=== PATIENT | female | born 1940 | race Caucasian/White ===

== ENCOUNTER 2019-07-04 09:14 | Emergency (ER) | payer MEDICARE, OTHER ==
[~2019-07-04] VITALS: Ht 149.9 cm; Wt 73.9 kg
--- NOTE | 2019-07-04 09:45 | ED General ---
General Chief Complaint: Dizziness/Syncope Stated Complaint: DIZZINESS Source of Information: Patient Exam Limitations: No Limitations History of Present Illness Date Seen by Provider: Jul 04, 2019 Time Seen by Provider: 09:30 Initial Comments The patient is a very pleasant 79-year-old female who presents for evaluation of dizziness described as room spinning which started while she was at work this morning. She thinks that when she kept her head still and/or close her eyes but her symptoms were slightly less intense. She reports a similar episode within the last few weeks or months. She mentions that she is supposed to have an echocardiogram soon and that she may have a valve problem. On physical exam she does have a systolic murmur concerning for aortic stenosis. During her episodes today she denies any nausea, diaphoresis, chest pain, shortness of breath, palpitations, back pain, abdominal pain, vision changes, focal weakness or focal numbness, ear pain or tinnitus, headache, or syncope. Her symptoms have improved significantly at this time. She is alert and oriented 4, calm, and appears to be in no distress at this time. Timing/Duration: 1 Hour Severity: Moderate Modifying Factors: improves with Movement (made it worse) Associated Systoms: Denies Symptoms Allergies and Home Medications Allergies Coded Allergies: Penicillins (Verified Allergy, Unknown, 07/04/19) Sulfa (Sulfonamide Antibiotics) (Verified Allergy, Unknown, 07/04/19) cholecalciferol (vitamin D3) (Verified Allergy, Unknown, 07/04/19) Patient Home Medication List Home Medication List Reviewed: Yes Review of Systems Review of Systems Constitutional: dizziness EENTM: no symptoms reported Respiratory: no symptoms reported Cardiovascular: vascular heart diseas (pt unsure) Gastrointestinal: no symptoms reported Genitourinary: no symptoms reported Musculoskeletal: no symptoms reported Skin: no symptoms reported Psychiatric/Neurological: No Symptoms Reported Hematologic/Lymphatic: No Symptoms Reported Immunological/Allergic: no symptoms reported All Other Systems Reviewed Negative Unless Noted: Yes Past Nagtdih-Yprtgv-Wlifxo Hx Past Med/Social Hx: Reviewed Nursing Past Med/Soc Hx Physical Exam Vital Signs Vital Signs - First Documented 07/04/19 09:25 Temp 98.4 Pulse 80 Resp 18 B/P (MAP) 148/83 (104) Pulse Ox 97 O2 Delivery Room Air Capillary Refill : Height, Weight, BMI Height: '" Weight: lbs. oz. kg; BMI Method: General Appearance: No Apparent Distress, WD/WN HEENT: PERRL/EOMI, TMs Normal, Pharynx Normal Neck: Full Range of Motion, Non Tender, Supple Respiratory: Chest Non Tender, Lungs Clear, Normal Breath Sounds, No Accessory Muscle Use, No Respiratory Distress Cardiovascular: Regular Rate, Rhythm, No Edema, No JVD, Systolic Murmur (grade 2 systolic murmur ) Gastrointestinal: Normal Bowel Sounds, No Organomegaly, No Pulsatile Mass, Non Tender, Soft Extremity: Normal Capillary Refill, Non Tender, No Calf Tenderness Neurologic/Psychiatric: Alert, Oriented x3, No Motor/Sensory Deficits, Normal 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, 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 Norm as Tested Skin: Normal Color, Warm/Dry Progress/Results/Core Measures Suspected Sepsis SIRS Temperature: Pulse: Respiratory Rate: Laboratory Tests 07/04/19 09:38: White Blood Count 4.4 Blood Pressure / Mean: Laboratory Tests 07/04/19 09:38: Creatinine 1.02, Platelet Count 209, Total Bilirubin 0.2 Results/Orders Lab Results Laboratory Tests Test 07/04/19 09:38 Range/Units White Blood Count 4.4 4.3-11.0 10^3/uL Red Blood Count 4.03 L 4.35-5.85 10^6/uL Hemoglobin 11.3 L 11.5-16.0 G/DL Hematocrit 36 35-52 % Mean Corpuscular Volume 89 80-99 FL Mean Corpuscular Hemoglobin 28 25-34 PG Mean Corpuscular Hemoglobin Concent 32 32-36 G/DL Red Cell Distribution Width 13.2 10.0-14.5 % Platelet Count 209 130-400 10^3/uL Mean Platelet Volume 10.0 7.4-10.4 FL Neutrophils (%) (Auto) 63 42-75 % Lymphocytes (%) (Auto) 26 12-44 % Monocytes (%) (Auto) 6 0-12 % Eosinophils (%) (Auto) 3 0-10 % Basophils (%) (Auto) 1 0-10 % Neutrophils # (Auto) 2.8 1.8-7.8 X 10^3 Lymphocytes # (Auto) 1.2 1.0-4.0 X 10^3 Monocytes # (Auto) 0.3 0.0-1.0 X 10^3 Eosinophils # (Auto) 0.2 0.0-0.3 10^3/uL Basophils # (Auto) 0.0 0.0-0.1 10^3/uL Urine Color STRAW Urine Clarity CLEAR Urine pH 6.5 5-9 Urine Specific [place] <=1.005 1.016-1.022 Urine Protein NEGATIVE NEGATIVE Urine Glucose (UA) NEGATIVE NEGATIVE Urine Ketones NEGATIVE NEGATIVE Urine Nitrite NEGATIVE NEGATIVE Urine Bilirubin NEGATIVE NEGATIVE Urine Urobilinogen 0.2 NORMAL MG/DL Urine Leukocyte Esterase 1+ H NEGATIVE Urine RBC (Auto) NEGATIVE NEGATIVE Urine RBC NONE /HPF Urine WBC 2-5 /HPF Urine Squamous Epithelial Cells 5-10 /HPF Urine Crystals NONE /LPF Urine Bacteria FEW H /HPF Urine Casts NONE /LPF Urine Mucus NEGATIVE /LPF Urine Culture Indicated YES Sodium Level 146 H 135-145 MMOL/L Potassium Level 3.6 3.6-5.0 MMOL/L Chloride Level 105 98-107 MMOL/L Carbon Dioxide Level 28 21-32 MMOL/L Anion Gap 13 5-14 MMOL/L Blood Urea Nitrogen 11 7-18 MG/DL Creatinine 1.02 0.60-1.30 MG/DL Estimat Glomerular Filtration Rate 52 BUN/Creatinine Ratio 11 Glucose Level 127 H 70-105 MG/DL Calcium Level 9.0 8.5-10.1 MG/DL Corrected Calcium 8.9 8.5-10.1 MG/DL Magnesium Level 2.3 1.6-2.4 MG/DL Total Bilirubin 0.2 0.1-1.0 MG/DL Aspartate Amino Transf (AST/SGOT) 16 5-34 U/L Alanine Aminotransferase (ALT/SGPT) 11 0-55 U/L Alkaline Phosphatase 130 40-136 U/L Troponin I < 0.30 <0.30 NG/ML Pro-B-Type Natriuretic Peptide 259.8 H <75.0 PG/ML Total Protein 6.6 6.4-8.2 GM/DL Albumin 4.1 3.2-4.5 GM/DL My Orders Orders - SUSIE DAWSON DO Cbc With Automated Diff (07/04/19:22) Magnesium (07/04/19:) Chest 1 View Ap/Pa Only (07/04/19:) Ekg Tracing (07/04/19:22) Comprehensive Metabolic Panel (07/04/19:22) O2 (8/15/19 09:22) Monitor-Rhythm Ecg Trace Only (07/04/19 09:22) Ed Iv/Invasive Line Start (07/04/19 09:22) Troponin I (07/04/19 09:22) Probnp Fs (07/04/19 09:22) Ua Culture If Indicated (07/04/19 09:22) Meclizine Tablet (Antivert Tablet) (07/04/19 10:00) Ns Iv 1000 Ml (Sodium Chloride 0.9%) (07/04/19 10:00) Ondansetron Injection (Zofran Injectio (07/04/19 10:00) Urine Culture (07/04/19 09:38) Medications Given in ED Current Medications Medications Dose Ordered Sig/Camilo Route Start Time Stop Time Status Last Admin Dose Admin Meclizine HCl 25 mg ONCE ONCE PO 07/04/19 10:00 07/04/19 10:01 DC 07/04/19 09:58 25 MG Ondansetron HCl 4 mg ONCE ONCE IVP 07/04/19 10:00 07/04/19 10:01 DC 07/04/19 09:58 4 MG Vital Signs/I&O 07/04/19 09:25 Temp 98.4 Pulse 80 Resp 18 B/P (MAP) 148/83 (104) Pulse Ox 97 O2 Delivery Room Air Capillary Refill : Progress Note : Progress Note @1130 - Patient and family updated on labs and imaging results. The patient reports that she feels completely back to normal and is no longer having a sensation of room spinning. She likely has benign positional vertigo. Her symptoms at this time are not concerning for stroke. Advised the patient to follow-up with her PCP in the next 1-2 days and return to the emergency Department immediately for new or worsening symptoms. She expresses verbal understanding and is stable for discharge at this time. ECG EKG : Comment Normal sinus rhythm, rate of 73, normal axis, no acute ischemic findings noted, no STEMI, reviewed and interpreted by myself Diagnostic Imaging Diagonstic Imaging: Xray Comments [facility] [place], [place] NAME: ALEXMARITZA E [facility] REC#: [id number] PT STATUS: REG ER : 1940 PHYSICIAN: SUSIE DAWSON DO ADMIT DATE: 07/04/19/ER FS Draft Date of Exam:07/04/19 CHEST 1 VIEW AP/PA ONLY Indication: Dizziness. Frontal chest obtained at 9:25 hours a.m. Heart is borderline in size. Mediastinal silhouette is unremarkable. The lungs are clear. There is no pneumothorax or pleural fluid. There are old granulomatous changes in the right hilum. Impression: Borderline heart size with no acute process in the chest. Dictated on workstation # [id number] Dict: 07/04/19 0955 Trans: 07/04/19 1005 CV [id number] Interpreted by: JO RUDD MD Electronically signed by: Departure Impression Primary Impression: Vertigo Disposition: 01 HOME, SELF-CARE Condition: Stable Departure-Patient Inst. Decision time for Depature: 11:30 Referrals: SAMANTHA RUTLEDGE MD (PCP/Family) Primary Care Physician Patient Instructions: Vertigo (a Type of Dizziness) (DC) Add. Discharge Instructions: Follow-up with your primary care physician in the next 1-2 days. Take the prescr ibed medicine as instructed. Return to the ER immediately for new or worsening symptoms. Scripts Meclizine HCl (Meclizine HCl) 25 Mg Tab.chew 25 MG PO Q6H PRN for DIZZINESS, #20 TAB Prov: SUSIE DAWSON DO 07/04/19 SUSIE DAWSON DO Jul 04, 2019 09:45
[2019-07-04] MEDS ORDERED: FLUT16SP22 (09:49)
[2019-07-04] MEDS ORDERED: MONT10TA24 (09:49)
[2019-07-04] MEDS ORDERED: FLT22013 (09:49)
[2019-07-04] MEDS ORDERED: THP300TCR (09:49)
[2019-07-04] MEDS ORDERED: DIPH1TAB25 (09:49)
[2019-07-04] MEDS ORDERED: LISI-552 (09:49)
[2019-07-04] MEDS ORDERED: LATA2.5D5 (09:49)
[2019-07-04] MEDS ORDERED: SLM50DS (09:49)
[2019-07-04] MEDS ORDERED: MECLIZINE 25 MG (ANTIVERT) TAB PO ONE (10:00)
[2019-07-04] MEDS ORDERED: NS IV 1000 ML 500 ML IV SCH (10:00)
[2019-07-04] MEDS ORDERED: ONDANSETRON 4 MG/2 ML (SDV) Z0FRAN IVP ONE (10:00)
[2019-07-04 10:04] LABS: BACTERIA,URINE FEW /HPF; BILIRUBIN,URINE NEGATIVE (NEGATIVE); CLARITY,URINE CLEAR; COLOR,URINE STRAW; GLUCOSE, URINE (UA) NEGATIVE (NEGATIVE); KETONES,URINE NEGATIVE (NEGATIVE); LEUKOCYTE ESTERASE ,URINE 1+ (NEGATIVE); NITRITE,URINE NEGATIVE (NEGATIVE); PH,URINE 6.5 (5-9); PROTEIN,URINE NEGATIVE (NEGATIVE); UROBILINOGEN,URINE 0.2 MG/DL (NORMAL)
[2019-07-04 10:05] LABS: HEMATOCRIT 36 % (35-52); HEMOGLOBIN 11.3 G/DL (11.5-16.0); MEAN CORPUSCULAR HEMOGLOBIN 28 PG (25-34); MEAN CORPUSCULAR HGB CONC 32 G/DL (32-36); MEAN CORPUSCULAR VOLUME 89 FL (80-99); WHITE BLOOD COUNT 4.4 10^3/uL (4.3-11.0)
[2019-07-04 10:06] LABS: BASOPHILS % (AUTO) 1 % (0-10); EOSINOPHILS # (AUTO) 0.2 10^3/uL (0.0-0.3); EOSINOPHILS % (AUTO) 3 % (0-10); LYMPHOCYTES # (AUTO) 1.2 X 10^3 (1.0-4.0); LYMPHOCYTES % (AUTO) 26 % (12-44); MONOCYTES # (AUTO) 0.3 X 10^3 (0.0-1.0); MONOCYTES % (AUTO) 6 % (0-12); NEUTROPHILS # (AUTO) 2.8 X 10^3 (1.8-7.8); NEUTROPHILS % (AUTO) 63 % (42-75); PLATELET COUNT 209 10^3/uL (130-400); RED CELL DISTRIBUTION WIDTH 13.2 % (10.0-14.5)
--- NOTE | 2019-07-04 10:06 | Diagnostic Imaging Report ---
Indication: Dizziness. Frontal chest obtained at 9:25 hours a.m. Heart is borderline in size. Mediastinal silhouette is unremarkable. The lungs are clear. There is no pneumothorax or pleural fluid. There are old granulomatous changes in the right hilum. Impression: Borderline heart size with no acute process in the chest. Dictated by: Dictated on workstation # [id number]
[2019-07-04 10:11] LABS: ALBUMIN 4.1 GM/DL (3.2-4.5); BILIRUBIN,TOTAL 0.2 MG/DL (0.1-1.0); CREATININE SERUM 1.02 MG/DL (0.60-1.30); MAGNESIUM 2.3 MG/DL (1.6-2.4); POTASSIUM 3.6 MMOL/L (3.6-5.0); TOTAL PROTEIN 6.6 GM/DL (6.4-8.2)
[2019-07-04] MEDS ORDERED: MECL-124 PO (11:34)
[2019-07-04] MEDS ORDERED: NITR-65 PO (11:43)
[2019-07-04 11:55] VITALS: BP 155/58
== END 2019-07-04 11:50 | disposition home or self-care (01) ==
LOC: ER FS 09:16
DX: R42 Dizziness and giddiness (principal); Z88.0 Allergy status to penicillin; Z88.2 Allergy status to sulfonamides; Z88.8 Allergy status to other drugs, medicaments and biological substances
CPT/HCPCS: 36415; 71045; 80053; 81000; 83735; 83880; 84484; 85025; 87088; 93005; 93041

== ENCOUNTER 2019-11-05 09:47 | Emergency (ER) | payer MEDICARE ==
[~2019-11-05] VITALS: Ht 147.3 cm; Wt 72.1 kg
[~2019-11-05 09:47] MED LIST: DIPH1TAB25; FLT22013; FLUT16SP22; LATA2.5D5; LISI-552; MECL-124 PO; MONT10TA24; NITR-65 PO; SLM50DS; THP300TCR
[2019-11-05] MEDS ORDERED: ASPIRIN 81 MG CHEW (CHILDREN'S ASA) PO ONE (10:15)
[2019-11-05 10:18] LABS: BASOPHILS % (AUTO) 0 % (0-10); EOSINOPHILS # (AUTO) 0.2 10^3/uL (0.0-0.3); EOSINOPHILS % (AUTO) 5 % (0-10); HEMATOCRIT 38 % (35-52); HEMOGLOBIN 12.2 G/DL (11.5-16.0); LYMPHOCYTES # (AUTO) 1.6 X 10^3 (1.0-4.0); LYMPHOCYTES % (AUTO) 35 % (12-44); MEAN CORPUSCULAR HEMOGLOBIN 28 PG (25-34); MEAN CORPUSCULAR HGB CONC 32 G/DL (32-36); MEAN CORPUSCULAR VOLUME 88 FL (80-99); MEAN PLATELET VOLUME 9.4 FL (7.4-10.4); MONOCYTES # (AUTO) 0.3 X 10^3 (0.0-1.0); MONOCYTES % (AUTO) 6 % (0-12); NEUTROPHILS # (AUTO) 2.5 X 10^3 (1.8-7.8); NEUTROPHILS % (AUTO) 54 % (42-75); PLATELET COUNT 226 10^3/uL (130-400); RED CELL DISTRIBUTION WIDTH 13.8 % (10.0-14.5); WHITE BLOOD COUNT 4.6 10^3/uL (4.3-11.0)
--- NOTE | 2019-11-05 10:18 | ED Chest Pain ---
General Chief Complaint: Chest Pain Stated Complaint: CHEST PAIN Source: patient Exam Limitations: no limitations History of Present Illness Date Seen by Provider: Nov 05, 2019 Time Seen by Provider: 10:00 Initial Comments Patient presents with onset of chest pain when she sat up this morning. Pain lasted a couple minutes and resolved. States that it came and went a few times with minimal activity. Denies previous occurrence of similar pain, denies history of cardiac workup or heart problems. Denies any recent illness: Cough, runny nose or congestion, fever or chills. On arrival to the ED no longer having any chest pain and feels fine. Allergies and Home Medications Allergies Coded Allergies: Penicillins (Verified Allergy, Unknown, 07/04/19) Sulfa (Sulfonamide Antibiotics) (Verified Allergy, Unknown, 07/04/19) cholecalciferol (vitamin D3) (Verified Allergy, Unknown, 07/04/19) Home Medications Ibuprofen 600 Mg Tablet, 600 MG PO Q6H PRN for PAIN-MILD Prescribed by: TUCKER CLAROS on 11/05/19 1302 Meclizine HCl 25 Mg Tab.chew, 25 MG PO Q6H PRN for DIZZINESS Prescribed by: SUSIE DAWSON on 07/04/19 1134 Nitrofurantoin Monohyd/M-Cryst 100 Mg Capsule, 1 TAB PO BID Prescribed by: SUSIE DAWSON on 07/04/19 1143 Patient Home Medication List Home Medication List Reviewed: Yes Review of Systems Review of Systems Constitutional: see HPI; No chills, No diaphoresis, No dizziness, No fever, No malaise, No weakness Respiratory: Denies Cough, Denies Orthopnea, Denies Shortness of Air, Denies SOA With Exertion, Denies SOA at Rest, Denies Stridor, Denies Wheezing Cardiovascular: See HPI, Chest Pain; Denies Edema, Denies Irregular Heart Rate, Denies Lightheadedness, Denies Palpitations, Denies Syncope Gastrointestinal: No Symptoms Reported, See HPI; Denies Abdominal Pain, Denies Diarrhea, Denies Nausea, Denies Poor Appetite Musculoskeletal: No back pain, No joint pain Skin: see HPI Past Oahbxgx-Qljiud-Ozmuee Hx Past Med/Social Hx: Reviewed Nursing Past Med/Soc Hx Patient Social History Alcohol Use: Denies Use 2nd Hand Smoke Exposure: No Recent Foreign Travel: No Recent Hopitalizations: No Seasonal Allergies Seasonal Allergies: No Past Medical History Surgeries: Yes Section, Gallbladder Respiratory: Yes Asthma Cardiac: Yes Heart Murmur Neurological: No Genitourinary: No Gastrointestinal: No Musculoskeletal: No Endocrine: No HEENT: No Cancer: No Psychosocial: No Integumentary: No Blood Disorders: No Physical Exam Vital Signs Vital Signs - First Documented Capillary Refill : Height, Weight, BMI Height: 4'11.00" Weight: 163lbs. oz. 73.669209wt; BMI Method:Stated General Appearance: No Apparent Distress, WD/WN Neck: Full Range of Motion, Normal Inspection, Non Tender Respiratory: Chest Non Tender, Lungs Clear, Normal Breath Sounds, No Accessory Muscle Use, No Respiratory Distress Cardiovascular: Regular Rate, Rhythm, No Edema, No Gallop, No JVD, No Murmur, Normal Peripheral Pulses Gastrointestinal: Normal Bowel Sounds, No Organomegaly, No Pulsatile Mass, Non Tender Extremity: Normal Capillary Refill, Normal Inspection, Normal Range of Motion, Non Tender, No Calf Tenderness, No Pedal Edema Neurologic/Psychiatric: Alert, Oriented x3, No Motor/Sensory Deficits, Normal Mood/Affect Progress/Results/Core Measures Results/Orders Lab Results Laboratory Tests Test 11/05/19 09:56 11/05/19 12:30 Range/Units White Blood Count 4.6 4.3-11.0 10^3/uL Red Blood Count 4.32 L 4.35-5.85 10^6/uL Hemoglobin 12.2 11.5-16.0 G/DL Hematocrit 38 35-52 % Mean Corpuscular Volume 88 80-99 FL Mean Corpuscular Hemoglobin 28 25-34 PG Mean Corpuscular Hemoglobin Concent 32 32-36 G/DL Red Cell Distribution Width 13.8 10.0-14.5 % Platelet Count 226 130-400 10^3/uL Mean Platelet Volume 9.4 7.4-10.4 FL Neutrophils (%) (Auto) 54 42-75 % Lymphocytes (%) (Auto) 35 12-44 % Monocytes (%) (Auto) 6 0-12 % Eosinophils (%) (Auto) 5 0-10 % Basophils (%) (Auto) 0 0-10 % Neutrophils # (Auto) 2.5 1.8-7.8 X 10^3 Lymphocytes # (Auto) 1.6 1.0-4.0 X 10^3 Monocytes # (Auto) 0.3 0.0-1.0 X 10^3 Eosinophils # (Auto) 0.2 0.0-0.3 10^3/uL Basophils # (Auto) 0.0 0.0-0.1 10^3/uL Sodium Level 144 135-145 MMOL/L Potassium Level 4.2 3.6-5.0 MMOL/L Chloride Level 106 98-107 MMOL/L Carbon Dioxide Level 25 21-32 MMOL/L Anion Gap 13 5-14 MMOL/L Blood Urea Nitrogen 13 7-18 MG/DL Creatinine 1.02 0.60-1.30 MG/DL Estimat Glomerular Filtration Rate 52 BUN/Creatinine Ratio 13 Glucose Level 102 70-105 MG/DL Calcium Level 9.5 8.5-10.1 MG/DL Corrected Calcium 9.2 8.5-10.1 MG/DL Total Bilirubin 0.3 0.1-1.0 MG/DL Aspartate Amino Transf (AST/SGOT) 17 5-34 U/L Alanine Aminotransferase (ALT/SGPT) 10 0-55 U/L Alkaline Phosphatase 127 40-136 U/L Troponin I < 0.30 < 0.30 <0.30 NG/ML Pro-B-Type Natriuretic Peptide 453.6 H <75.0 PG/ML Total Protein 6.8 6.4-8.2 GM/DL Albumin 4.4 3.2-4.5 GM/DL My Orders Orders - ROVENSTTUCKER CATES DO Ed Iv/Invasive Line Start (11/05/19 10:07) Chest 1 View Ap/Pa Only (11/05/19 10:07) Ekg Tracing (11/05/19 10:07) Cbc With Automated Diff (11/05/19 10:07) Comprehensive Metabolic Panel (11/05/19 10:07) Troponin I Fs (11/05/19 10:07) Probnp Fs (11/05/19 10:07) Aspirin Chewable Tablet (Baby Aspirin Ch (11/05/19 10:15) Troponin I Fs (11/05/19 12:00) Ibuprofen Tablet (Motrin Tablet) (11/05/19 12:30) Medications Given in ED Current Medications Medications Dose Ordered Sig/Camilo Route Start Time Stop Time Status Last Admin Dose Admin Ibuprofen 600 mg ONCE ONCE PO 11/05/19 12:30 11/05/19 12:31 DC 11/05/19 12:28 600 MG Vital Signs/I&O 11/05/19 11/05/19 09:50 09:50 Temp 36.5 Pulse 64 Resp 14 B/P (MAP) 162/53 (89) Pulse Ox 100 O2 Delivery Room Air Room Air Progress Progress Note : Progress Note Uneventful ER stay, presenting with no chest pain on arrival. At frequent re- evaluations, patient stated she had had some sharp chest pain that lasted only a few seconds and resolved. Reexamination of her chest with some scattered tenderness at the costochondral junction both right and left side. Repeat 2 hour troponin negative and patient reassurance given. Discussed outpatient treatment with short term NSAID and near follow-up with her PCP as long as no significant changes. Also advised ER follow-up if pain progresses, changes in severity or becomes persistent. Initial ECG Impression Date: Nov 05, 2019 Initial ECG Impression Time: 10:00 Initial ECG Rhythm: Normal Sinus Initial ECG Intervals: Normal Initial ECG Impression: Normal Initial ECG Comparisson: No Previous ECG Available Departure Impression Primary Impression: Chest pain Qualified Codes: R07.9 - Chest pain, unspecified Disposition: 01 HOME, SELF-CARE Condition: Stable Departure-Patient Inst. Referrals: SAMANTHA RUTLEDGE MD (PCP/Family) Primary Care Physician Patient Instructions: Chest Pain (DC) Add. Discharge Instructions: Call your Primary Care Doctor today to arrange for a follow-up evaluation regarding your Chest pain. All discharge instructions reviewed with patient and/or family. Voiced understanding. Scripts Ibuprofen (Ibuprofen) 600 Mg Tablet 600 MG PO Q6H PRN for PAIN-MILD, #20 TAB Prov: TUCKER CLAROS DO 11/05/19 TUCKER CLAROS DO Nov 05, 2019 10:18 POS
[2019-11-05 10:40] LABS: ALANINE AMINOTRANSFERASE 10 U/L (0-55); ALBUMIN 4.4 GM/DL (3.2-4.5); ALKALINE PHOSPHATASE 127 U/L (40-136); BILIRUBIN,TOTAL 0.3 MG/DL (0.1-1.0); BUN/CREATININE RATIO 13; CALCIUM 9.5 MG/DL (8.5-10.1); CARBON DIOXIDE 25 MMOL/L (21-32); CHLORIDE 106 MMOL/L (98-107); CREATININE SERUM 1.02 MG/DL (0.60-1.30); GFR ESTIMATED 52; GLUCOSE 102 MG/DL (70-105); POTASSIUM 4.2 MMOL/L (3.6-5.0); SODIUM 144 MMOL/L (135-145); TOTAL PROTEIN 6.8 GM/DL (6.4-8.2)
--- NOTE | 2019-11-05 11:04 | Diagnostic Imaging Report ---
CLINICAL INDICATION: Patient with chest pain. EXAM: Portable chest x-ray, upright view. COMPARISON: Chest x-ray dated 07/04/2019. FINDINGS: Lungs/pleura: The lungs are clear and stable. There is no pneumothorax. There is no pleural effusion. Mediastinum: Unremarkable. Pulmonary vasculature: Unremarkable. Heart: The heart size is now within normal limits. Bones/extrathoracic soft tissue: There are degenerative spurs involving the thoracic spine. IMPRESSION: There is no radiographic evidence of an acute cardiopulmonary process. Dictated by: Dictated on workstation # [id number]
[2019-11-05] MEDS ORDERED: IBUPROFEN 600 MG (MOTRIN) TAB PO ONE (12:30)
[2019-11-05] MEDS ORDERED: IBUP-1773 PO (13:02)
[2019-11-05 13:11] VITALS: BP 166/56
== END 2019-11-05 13:18 | disposition home or self-care (01) ==
LOC: EDUNIT# 09:47 → ER FS 09:48
DX: R07.9 Chest pain, unspecified (principal); J45.909 Unspecified asthma, uncomplicated; Z88.0 Allergy status to penicillin; Z88.2 Allergy status to sulfonamides; Z88.8 Allergy status to other drugs, medicaments and biological substances
CPT/HCPCS: 36415; 71045; 80053; 83880; 84484; 85025; 93005

== ENCOUNTER 2020-02-03 16:54 | Emergency (ER) | payer MEDICARE ==
[~2020-02-03] VITALS: Ht 149 cm; Wt 71.9 kg
[~2020-02-03 16:54] MED LIST changes: +IBUP-1773 PO; -MONT10TA24; +MONT10TA26
--- NOTE | 2020-02-03 17:37 | ED General ---
General Stated Complaint: DIZZINESS,EAR PRESSURE History of Present Illness Date Seen by Provider: Feb 03, 2020 Time Seen by Provider: 17:34 Initial Comments This patient is an 79-year-old female that presents to the emergency department complaining of intermittent dizziness today. Patient states she has a long history of dizziness is been treated for the same by her PCP. Patient describes vertigo. Patient states that she has to do exercises frequently to help with her dizziness. Denies taking any medications. Patient states she had a little dizzy earlier and percussion, fall. Patient does not appear to be acutely sick and states the dizziness is much improved at this time. We'll do a medical evaluation treatment is needed. Timing/Duration: 12 Hours Severity: Mild Modifying Factors: worse with Cold Therapy, worse with Eating, worse with Immobilization, worse with Medication, worse with Movement, worse with Rest, worse with Other Associated Systoms: Denies Symptoms; No Chest Pain, No Cough, No Diaphoresis, No Fever/Chills, No Headaches, No Loss of Appetite, No Malaise, No Nausea/Vomiting, No Rash, No Seizure, No Shortness of Air, No Syncope, No Weakness, No Other Allergies and Home Medications Allergies Coded Allergies: Penicillins (Verified Allergy, Unknown, 07/04/19) Sulfa (Sulfonamide Antibiotics) (Verified Allergy, Unknown, 07/04/19) cholecalciferol (vitamin D3) (Verified Allergy, Unknown, 07/04/19) Home Medications Ibuprofen 600 Mg Tablet, 600 MG PO Q6H PRN for PAIN-MILD Prescribed by: TUCKER CLAROS on 11/05/19 1302 Meclizine HCl 25 Mg Tab.chew, 25 MG PO Q6H PRN for DIZZINESS Prescribed by: SUSIE DAWSON on 07/04/19 1134 Nitrofurantoin Monohyd/M-Cryst 100 Mg Capsule, 1 TAB PO BID Prescribed by: SUSIE DAWSON on 07/04/19 1143 Patient Home Medication List Home Medication List Reviewed: Yes Review of Systems Review of Systems Constitutional: no symptoms reported; No see HPI, No chills, No diaphoresis, No dizziness, No fever, No malaise, No weakness, No weight gain, No weight loss, No other EENTM: no symptoms reported; No see HPI, No ear discharge, No hearing loss, No ear pain, No blurred vision, No double vision, No eye pain, No tearing, No vision loss, No dental problems, No hoarseness, No mouth pain, No mouth swelling, No epistaxis, No nose congestion, No nose pain, No throat pain, No th roat swelling, No other Respiratory: no symptoms reported; No see HPI, No cough, No dyspnea on exertion, No hemoptysis, No orthopnea, No phlegm, No short of breath, No stridor, No wheezing, No other Cardiovascular: no symptoms reported; No see HPI, No chest pain, No edema, No Hx of Intervention, No palpitations, No syncope, No vascular heart diseas, No other Gastrointestinal: No RUQ, No LUQ, No RLQ, No LLQ; no symptoms reported; No see HPI, No abdominal pain, No constipation, No diarrhea, No dysphagia, No hematemesis, No heartburn, No jaundice, No loss of appetite, No melena, No nausea, No vomiting, No other Genitourinary: No no symptoms reported, No see HPI, No decreased output, No discharge, No dysuria, No frequency, No hematuria, No hesitancy, No incontinence, No nocturia, No pain, No other Musculoskeletal: no symptoms reported; No see HPI, No back pain, No gout, No joint pain, No joint swelling, No muscle pain, No muscle stiffness, No muscle cramps, No muscle twitching, No muscle weakness, No neck pain, No other Skin: no symptoms reported; No see HPI, No change in color, No change in hair/nails, No dryness, No hx of skin cancer, No lesions, No lumps, No pruritus, No rash, No other Psychiatric/Neurological: Denies No Symptoms Reported, Denies See HPI, Denies Anxiety, Denies Depressed, Denies Emotional Problems, Denies Headache, Denies Numbness, Denies Paresthesia, Denies Pre-Existing Deficit, Denies Seizure, Denies Tingling, Denies Tremors, Denies Weakness, Denies Other Past Rvfagzx-Gugobm-Ndtgqw Hx Patient Social History 2nd Hand Smoke Exposure: No Recent Foreign Travel: No Contact w/Someone Who Travel: No Recent Hopitalizations: No Seasonal Allergies Seasonal Allergies: No Past Medical History Surgeries: Yes Section, Gallbladder Respiratory: Yes Asthma Cardiac: Yes Heart Murmur Neurological: No Genitourinary: No Gastrointestinal: No Musculoskeletal: No Endocrine: No HEENT: No Cancer: No Psychosocial: No Integumentary: No Blood Disorders: No Physical Exam Vital Signs Vital Signs - First Documented 02/03/20 17:15 Temp 36.4 Pulse 75 Resp 17 B/P (MAP) 169/61 (97) Pulse Ox 97 Capillary Refill : Height, Weight, BMI Height: 4'11.00" Weight: 163lbs. oz. 73.788646at; 33.00 BMI Method:Stated General Appearance: No Apparent Distress, WD/WN HEENT: PERRL/EOMI, TMs Normal, Normal ENT Inspection, Pharynx Normal Neck: Full Range of Motion, Normal Inspection, Non Tender, Supple Respiratory: Chest Non Tender, Lungs Clear, Normal Breath Sounds, No Accessory Muscle Use, No Respiratory Distress Cardiovascular: Regular Rate, Rhythm, No Edema, No Gallop, No JVD, No Murmur, Normal Peripheral Pulses Gastrointestinal: Normal Bowel Sounds, No Organomegaly, No Pulsatile Mass, Non Tender, Soft Back: Normal Inspection, No CVA Tenderness, No Vertebral Tenderness Extremity: Normal Capillary Refill, Normal Inspection, Normal Range of Motion, Non Tender, No Calf Tenderness, No Pedal Edema Neurologic/Psychiatric: Alert, Oriented x3, No Motor/Sensory Deficits, Normal Mood/Affect Skin: Normal Color, Warm/Dry Progress/Results/Core Measures Suspected Sepsis SIRS Temperature: Pulse: Respiratory Rate: Laboratory Tests 02/03/20 17:50: White Blood Count 5.2 Blood Pressure / Mean: Laboratory Tests 02/03/20 17:50: Creatinine 1.04, INR Comment 1.0, Platelet Count 231, Total Bilirubin 0.2 Results/Orders Lab Results Laboratory Tests Test 02/03/20 17:50 Range/Units White Blood Count 5.2 4.3-11.0 10^3/uL Red Blood Count 4.19 L 4.35-5.85 10^6/uL Hemoglobin 11.9 11.5-16.0 G/DL Hematocrit 37 35-52 % Mean Corpuscular Volume 89 80-99 FL Mean Corpuscular Hemoglobin 28 25-34 PG Mean Corpuscular Hemoglobin Concent 32 32-36 G/DL Red Cell Distribution Width 13.6 10.0-14.5 % Platelet Count 231 130-400 10^3/uL Mean Platelet Volume 9.6 7.4-10.4 FL Neutrophils (%) (Auto) 53 42-75 % Lymphocytes (%) (Auto) 33 12-44 % Monocytes (%) (Auto) 9 0-12 % Eosinophils (%) (Auto) 4 0-10 % Basophils (%) (Auto) 1 0-10 % Neutrophils # (Auto) 2.8 1.8-7.8 X 10^3 Lymphocytes # (Auto) 1.7 1.0-4.0 X 10^3 Monocytes # (Auto) 0.5 0.0-1.0 X 10^3 Eosinophils # (Auto) 0.2 0.0-0.3 10^3/uL Basophils # (Auto) 0.0 0.0-0.1 10^3/uL Prothrombin Time 13.1 12.2-14.7 SEC INR Comment 1.0 0.8-1.4 Activated Partial Thromboplast Time 25 24-35 SEC Sodium Level 143 135-145 MMOL/L Potassium Level 4.3 3.6-5.0 MMOL/L Chloride Level 104 98-107 MMOL/L Carbon Dioxide Level 26 21-32 MMOL/L Anion Gap 13 5-14 MMOL/L Blood Urea Nitrogen 16 7-18 MG/DL Creatinine 1.04 0.60-1.30 MG/DL Estimat Glomerular Filtration Rate 51 BUN/Creatinine Ratio 15 Glucose Level 84 70-105 MG/DL Calcium Level 9.3 8.5-10.1 MG/DL Corrected Calcium 9.1 8.5-10.1 MG/DL Magnesium Level 2.3 1.6-2.4 MG/DL Total Bilirubin 0.2 0.1-1.0 MG/DL Aspartate Amino Transf (AST/SGOT) 17 5-34 U/L Alanine Aminotransferase (ALT/SGPT) 10 0-55 U/L Alkaline Phosphatase 130 40-136 U/L Myoglobin 30.9 10.0-92.0 NG/ML Troponin I < 0.30 <0.30 NG/ML Pro-B-Type Natriuretic Peptide 536.0 H <75.0 PG/ML Total Protein 6.9 6.4-8.2 GM/DL Albumin 4.2 3.2-4.5 GM/DL My Orders Orders - ANDREY EMERY MD Ekg Tracing (02/03/20 17:27) Chest 1 View Ap/Pa Only (02/03/20 17:27) Cbc With Automated Diff (02/03/20:28) Magnesium (02/03/20:28) Ekg Tracing (02/03/20:) Comprehensive Metabolic Panel (02/03/20:) Myoglobin Serum (02/03/20:28) Protime With Inr (02/03/20:) Partial Thromboplastin Time (02/03/20:) O2 (02/03/20:28) Monitor-Rhythm Ecg Trace Only (02/03/20:) Ed Iv/Invasive Line Start (02/03/20:) Troponin I Fs (02/03/20:) Probnp Fs (02/03/20:) Orthostatic Vital Signs (Adult (02/03/20:28) Ct Head Wo (02/03/20 17:28) Vital Signs/I&O 02/03/20 02/03/20 17:15 18:00 Temp 36.4 Pulse 75 68 71 72 Resp 17 B/P (MAP) 169/61 (97) 166/56 (92) 169/62 (97) 169/60 (96) Pulse Ox 97 Capillary Refill : Progress Note : Time: 18:45 Progress Note Negative evaluation M 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 Patient given a prescription for meclizine patient's follow-up PCP in 2-3 days. ECG Initial ECG Impression Date: Feb 03, 2020 Initial ECG Impression Time: 17:32 Initial ECG Rate: 62 Initial ECG Rhythm: Normal Sinus Initial ECG Intervals: Normal Initial ECG Impression: Normal Departure Impression Primary Impression: Vertigo Disposition: 01 HOME, SELF-CARE Condition: Stable Departure-Patient Inst. Decision time for Depature: 18:46 Referrals: SAMANTHA RUTLEDGE MD (PCP) Primary Care Physician Patient Instructions: Vertigo (a Type of Dizziness) (DC) Add. Discharge Instructions: Encourage by mouth fluids. Transition from lying to sitting and standing slowly the arch for falls. Follow-up with your PCP in 2-3 days. Scripts Meclizine HCl (Meclizine HCl) 12.5 Mg Tablet 12.5 MG PO BID for 7 Days, #14 TAB 0 Refills Prov: ANDREY EMERY MD 02/03/20 ANDREY EMERY MD Feb 03, 2020 17:37
[2020-02-03 18:00] VITALS: BP_SYST 166; BP_SYST 169; BP_DIAS 56; BP_DIAS 60; BP_DIAS 62
[2020-02-03 18:14] LABS: HEMATOCRIT 37 % (35-52); HEMOGLOBIN 11.9 G/DL (11.5-16.0); MEAN CORPUSCULAR HEMOGLOBIN 28 PG (25-34); MEAN CORPUSCULAR VOLUME 89 FL (80-99); WHITE BLOOD COUNT 5.2 10^3/uL (4.3-11.0)
[2020-02-03 18:15] LABS: BASOPHILS % (AUTO) 1 % (0-10); EOSINOPHILS # (AUTO) 0.2 10^3/uL (0.0-0.3); EOSINOPHILS % (AUTO) 4 % (0-10); LYMPHOCYTES # (AUTO) 1.7 X 10^3 (1.0-4.0); LYMPHOCYTES % (AUTO) 33 % (12-44); MEAN CORPUSCULAR HGB CONC 32 G/DL (32-36); MEAN PLATELET VOLUME 9.6 FL (7.4-10.4); MONOCYTES # (AUTO) 0.5 X 10^3 (0.0-1.0); MONOCYTES % (AUTO) 9 % (0-12); NEUTROPHILS # (AUTO) 2.8 X 10^3 (1.8-7.8); NEUTROPHILS % (AUTO) 53 % (42-75); PLATELET COUNT 231 10^3/uL (130-400); RED CELL DISTRIBUTION WIDTH 13.6 % (10.0-14.5)
[2020-02-03 18:20] LABS: PROTHROMBIN TIME PATIENT 13.1 SEC (12.2-14.7)
--- NOTE | 2020-02-03 18:26 | Diagnostic Imaging Report ---
PROCEDURE: CT head without contrast. TECHNIQUE: Multiple contiguous axial images were obtained through the brain without the use of intravenous contrast. Auto Exposure Controls were utilized during the CT exam to meet ALARA standards for radiation dose reduction. Examination is limited due to motion. INDICATION: Dizziness CT HEAD: CT images of the head were obtained. FINDINGS: Ventricles and sulci are within normal limits for size. There is no intracranial hemorrhage identified. There is no abnormal mass effect or shift of midline structures. There is atherosclerotic calcification within the distal internal carotid arteries. There is mild mural thickening within ethmoid air cells bilaterally as well as the right sphenoid sinus. There is hyperostosis frontalis interna. IMPRESSION: No acute abnormality is identified. Dictated by: Dictated on workstation # [id number]
--- NOTE | 2020-02-03 18:27 | Diagnostic Imaging Report ---
INDICATION: Dizziness. FINDINGS: Single view of the chest shows normal heart size and vascularity. The lungs are clear. There is no effusion or pneumothorax. There is no bony abnormality. IMPRESSION: No acute abnormality is seen with no change from 11/05/2019. Dictated by: Dictated on workstation # [id number]
[2020-02-03 18:38] LABS: BILIRUBIN,TOTAL 0.2 MG/DL (0.1-1.0); CALCIUM 9.3 MG/DL (8.5-10.1); CREATININE SERUM 1.04 MG/DL (0.60-1.30); MAGNESIUM 2.3 MG/DL (1.6-2.4); POTASSIUM 4.3 MMOL/L (3.6-5.0)
[2020-02-03 18:39] LABS: ALBUMIN 4.2 GM/DL (3.2-4.5); TOTAL PROTEIN 6.9 GM/DL (6.4-8.2)
[2020-02-03] MEDS ORDERED: MECL-172 PO (18:47)
[2020-02-03 19:00] VITALS: BP 159/45
--- OUTSIDE RECORDS SUMMARY | 2020-02-04 00:49 | XMS REPORT | Continuity of Care Document ---
Author Organization Unknown Address Unknown Phone Unavailable Allergies Active Description Code Type Severity Reaction Onset Reported/Identified Relationship to Patient Clinical Status Yes cholecalciferol (vitamin D3) [id number] Drug Allergy Unknown N/A 07/04/2019 Yes Penicillins [id number] Drug Aller gy Unknown N/A 07/04/2019 Yes Sulfa (Sulfonamide Antibiotics) [id number] Drug Allergy Unknown N/A 019 Medications There is no data. Problems Date Dx Coded Attending Type Code Diagnosis Diagnosed By 07/04/2019 SAMIR RICHARDS DO Ot R42 DIZZINESS AND GIDDINESS 07/04/2019 SAMIR RICHARDS DO Ot Z88. 0 ALLERGY STATUS TO PENICILLIN 07/04/2019 SAMIR RICHARDS DO Ot Z88. 2 ALLERGY STATUS TO SULFONAMIDES STATUS 07/04/2019 SAMIR RICHARDS DO Ot Z88. 8 ALLERGY STATUS TO OTH DRUG/MEDS/BIOL SUB 07/08/2019 SAMIR RICHARDS DO Ot R42 DIZZINESS AND GIDDINESS 07/08/2019 SAMIR RICHARDS DO Ot Z88. 0 ALLERGY STATUS TO PENICILLIN 07/08/2019 SMAIR RICHARDS DO Ot Z88. 2 ALLERGY STATUS TO SULFONAMIDES STATUS 07/08/2019 SAMIR RICHARDS DO Ot Z88. 8 ALLERGY STATUS TO OTH DRUG/MEDS/BIOL SUB 11/05/2019 ROVENSTINE DESTIN HAMMONDEN L Ot J45.909 UNSPECIFIED ASTHMA, UNCOMPLICATED 11/05/2019 ROVENSTINE DODESTINEN L Ot R07.9 CHEST PAIN, UNSPECIFIED 11/05/2019 ROVENSTINE DESTIN HAMMONDEN L Ot Z88.0 ALLERGY STATUS TO PENICILLIN 11/05/2019 ROVENSTINE DO TUCKER L Ot Z88.2 ALLERGY STATUS TO SULFONAMIDES STATUS 11/05/2019 ROVENSTINE DESTIN HAMMONDEN L Ot Z88.8 ALLERGY STATUS TO OTH DRUG/MEDS/BIOL SUB 11/08/2019 ROVENSTINE DO, TUCKER L Ot J45.909 UNSPECIFIED ASTHMA, UNCOMPLICATED 11/08/2019 ROVENSTINE TUCKER HAMMOND Ot R07.9 CHEST PAIN, UNSPECIFIED 11/08/2019 JEANVENSTINE TUCKER HAMMOND Ot Z88.0 ALLERGY STATUS TO PENICILLIN 11/08/2019 ROVENSTINE TUCKER HAMMOND Ot Z88.2 ALLERGY STATUS TO SULFONAMIDES STATUS 11/08/2019 JEANVENSTINE TUCKER HAMMOND Ot Z88.8 ALLERGY STATUS TO OTH DRUG/MEDS/BIOL SUB Procedures There is no data. Results Test Result Range LIPID PANEL - 01/24/19 11:00 CHOLESTEROL, TOTAL 199 mg/dL <200 HDL CHOLESTEROL 81 mg/dL >50 TRIGLYCERIDES 106 mg/dL <150 LDL-CHOLESTEROL 98 mg/dL (calc) NRG CHOL/HDLC RATIO 2.5 (calc) <5.0 NON HDL CHOLESTEROL 118 mg/dL (calc) <13 0 CMP - 01/24/19 11:00 GLUCOSE 106 mg/dL 65-99 UREA NITROGEN (BUN) 16 mg/dL 7-25 CREATININE 1.17 mg/dL 0.60-0.93 eGFR NON-AFR. SWAZI 44 mL/min/1.73m2 > OR = 60 eGFR 51 mL/min/1.73m2 > OR = 60 BUN/CREATININE RATIO 14 (calc) 6-22 SODIUM 142 mmol/L 135-146 POTASSIUM 5.2 mmol/L 3.5-5.3 CHLORIDE 106 mmol/L 98-110 CARBON DIOXIDE 27 mmol/L 20-32 CALCIUM 9.3 mg/dL 8.6-10.4 PROTEIN, TOTAL 6.7 g/dL 6.1-8.1 ALBUMIN 4.5 g/dL 3.6-5.1 GLOBULIN 2.2 g/dL (calc) 1.9-3.7 ALBUMIN/GLOBULIN RATIO 2.0 (calc) 1.0-2. 5 BILIRUBIN, TOTAL 0.3 mg/dL 0.2-1.2 ALKALINE PHOSPHATASE 121 U/L 33-130 AST 18 U/L 10-35 ALT 13 U/L 6-29 CBC - 01/24/19 11:00 WHITE BLOOD CELL COUNT 4.5 Thousand/uL 3 .8-10.8 RED BLOOD CELL COUNT 4.39 Million/uL 3.8 0-5.10 HEMOGLOBIN 12.7 g/dL 11.7-15.5 HEMATOCRIT 38.3 % 35.0-45.0 MCV 87.2 fL 80.0-100.0 MCH 28.9 pg 27.0-33.0 MCHC 33.2 g/dL 32.0-36.0 RDW 14.0 % 11.0-15.0 PLATELET COUNT 254 Thousand/uL 140-400 MPV 10.2 fL 7.5-12.5 ABSOLUTE NEUTROPHILS 2525 cells/uL 1500- 7800 ABSOLUTE LYMPHOCYTES 1427 cells/uL 850-3 900 ABSOLUTE MONOCYTES 369 cells/uL 200-950 ABSOLUTE EOSINOPHILS 149 cells/uL 15-500 ABSOLUTE BASOPHILS 32 cells/uL 0-200 NEUTROPHILS 56.1 % NRG LYMPHOCYTES 31.7 % NRG MONOCYTES 8.2 % NRG EOSINOPHILS 3.3 % NRG BASOPHILS 0.7 % NRG Complete urinalysis with reflex to cultu re - 07/04/19 09:38 Urine color determination STRAW NRG Urine clarity determination CLEAR NR G Urine pH measurement by test strip 6.5 5-9 Specific gravity of urine by test strip <= 1.016-1.022 Urine protein assay by test strip, semi-quantitative NEGATIVE NEGATIVE Urine glucose detection by automated test strip NE GATIVE NEGATIVE Erythrocytes detection in urine sediment by light micr oscopy NEGATIVE NEGATIVE Urine ketones detection by automated test strip NE GATIVE NEGATIVE Urine nitrite detection by test strip NEGATIVE NEGATIVE Urine total bilirubin detection by test strip NEGA TIVE NEGATIVE Urine urobilinogen measurement by automated test strip (mass/volume) 0.2 mg/dL NORMAL Urine leukocyte esterase detection by dipstick 1+ NEGATIVE Automated urine sediment erythrocyte cou nt by microscopy (number/high power field) NONE NRG Automated urine sediment leukocyte count by microscopy (number/high power field) [HPF] NRG Bacteria detection in urine sediment by light microsco py FEW NRG Squamous epithelial cells detection in u rine sediment by light microscopy 5-10 NRG Crystals detection in urine sediment by light microsco py NONE NRG Casts detection in urine sediment by light microscopy NONE NRG Mucus detection in urine sediment by light microscopy NEGATIVE NRG Complete urinalysis with reflex to culture YES NRG Complete blood count (CBC) with automate d white blood cell (WBC) differential - 07/04/19 09:38 Blood leukocytes automated count (number/volume) 4.4 10*3/uL 4.3-11.0 Blood erythrocytes automated count (number/volume) 4.03 10*6/uL 4.35-5.85 Venous blood hemoglobin measurement (mass/volume) 11.3 g/dL 11.5-16.0 Blood hematocrit (volume fraction) 36 % 35-52 Automated erythrocyte mean corpuscular volume 89 [ foz_us] 80-99 Automated erythrocyte mean corpuscular h emoglobin (mass per erythrocyte) 28 pg 25-34 Automated erythrocyte mean corpuscular h emoglobin concentration measurement (mass/volume) 32 g/dL 32-36 Automated erythrocyte distribution width ratio 13. 2 % 10.0- 14.5 Automated blood platelet count (count/volume) 209 10*3/uL 130-400 Automated blood platelet mean volume measurement 10.0 [foz_us] 7.4-10.4 Automated blood neutrophils/100 leukocytes 63 % 42-75 Automated blood lymphocytes/100 leukocytes 26 % 12-44 Blood monocytes/100 leukocytes 6 % 0-12 Automated blood eosinophils/100 leukocytes 3 % 0-10 Automated blood basophils/100 leukocytes 1 % 0-10 Blood neutrophils automated count (number/volume) 2.8 10*3 1.8-7.8 Blood lymphocytes automated count (number/volume) 1.2 10*3 1.0-4.0 Blood monocytes automated count (number/volume) 0. 3 10*3 0.0-1.0 Automated eosinophil count 0.2 10*3/uL 0 .0-0.3 Automated blood basophil count (count/volume) 0.0 10*3/uL 0.0-0.1 Serum or plasma troponin i.cardiac measu rement (mass/volume) - 07/04/19 09:38 Serum or plasma troponin i.cardiac measurement (mass/v olume) < ng/mL <0.30 Comprehensive metabolic panel - 07/04/19 09:38 Serum or plasma sodium measurement (moles/volume) 146 mmol/L 135-145 Serum or plasma potassium measurement (moles/volume) 3.6 mmol/L 3.6-5.0 Serum or plasma chloride measurement (moles/volume) 105 mmol/L 98-107 Carbon dioxide 28 mmol/L 21-32 Serum or plasma anion gap determination (moles/volume) 13 mmol/L 5-14 Serum or plasma urea nitrogen measurement (mass/volume ) 11 mg/dL 7-18 Serum or plasma creatinine measurement (mass/volume) 1.02 mg/dL 0.60-1.30 Serum or plasma urea nitrogen/creatinine mass ratio 11 NRG Serum or plasma creatinine measurement w ith calculation of estimated glomerular filtration rate 52 NRG Serum or plasma glucose measurement (mass/volume) 127 mg/dL 70-105 Serum or plasma calcium measurement (mass/volume) 9.0 mg/dL 8.5-10.1 Serum or plasma total bilirubin measurement (mass/volu me) 0.2 mg/dL 0.1-1.0 Serum or plasma alkaline phosphatase mira surement (enzymatic activity/volume) 130 U/L 40-136 Serum or plasma aspartate aminotransfera se measurement (enzymatic activity/volume) 16 U/L 5-34 Serum or plasma alanine aminotransferase measurement (enzymatic activity/volume) 11 U/L 0-55 Serum or plasma protein measurement (mass/volume) 6.6 g/dL 6.4-8.2 Serum or plasma albumin measurement (mass/volume) 4.1 g/dL 3.2-4.5 CALCIUM CORRECTED 8.9 mg/dL 8.5-10.1 Magnesium - 07/04/19 09:38 Magnesium 2.3 mg/dL 1.6-2.4 PROBNP FS - 07/04/19 09:38 PROBNP FS 259.8 pg/mL <75.0 Bacterial urine culture - 07/04/19 09:38 Bacterial urine culture NG NRG CBC w/MANUAL DIFF - 07/09/19 14:08 WHITE BLOOD CELL COUNT 6.4 Thousand/uL 3 .8-10.8 RED BLOOD CELL COUNT 4.23 Million/uL 3.8 0-5.10 HEMOGLOBIN 12.2 g/dL 11.7-15.5 HEMATOCRIT 36.7 % 35.0-45.0 MCV 86.8 fL 80.0-100.0 MCH 28.8 pg 27.0-33.0 MCHC 33.2 g/dL 32.0-36.0 RDW 13.6 % 11.0-15.0 PLATELET COUNT 227 Thousand/uL 140-400 MPV 10.8 fL 7.5-12.5 ABSOLUTE NEUTROPHILS 4006 cells/uL 1500- 7800 ABSOLUTE MONOCYTES 262 cells/uL 200-950 ABSOLUTE EOSINOPHILS 192 cells/uL 15-500 ABSOLUTE BASOPHILS 0 cells/uL 0-200 NEUTROPHILS 62.6 % NRG LYMPHOCYTES 30.3 % NRG MONOCYTES 4.1 % NRG EOSINOPHILS 3.0 % NRG BASOPHILS 0 % NRG ABSOLUTE LYMPHOCYTES 1939 cells/uL 850-3 900 PLATELET ESTIMATION ADEQUATE ADEQUATE COMMENT(S) NRG CULTURE, URINE - 07/09/19 14:08 CULTURE, URINE, ROUTINE SEE NOTE NRG BNP - 08/06/19 16:22 B TYPE NATRIURETIC PEPTIDE (BNP) 64 pg/mL <100 CULTURE, URINE - 08/06/19 16:22 CULTURE, URINE, ROUTINE SEE NOTE NRG Complete blood count (CBC) with automate d white blood cell (WBC) differential - 11/05/19 09:56 Blood leukocytes automated count (number/volume) 4.6 10*3/uL 4.3-11.0 Blood erythrocytes automated count (number/volume) 4.32 10*6/uL 4.35-5.85 Venous blood hemoglobin measurement (mass/volume) 12.2 g/dL 11.5-16.0 Blood hematocrit (volume fraction) 38 % 35-52 Automated erythrocyte mean corpuscular volume 88 [ foz_us] 80-99 Automated erythrocyte mean corpuscular h emoglobin (mass per erythrocyte) 28 pg 25-34 Automated erythrocyte mean corpuscular h emoglobin concentration measurement (mass/volume) 32 g/dL 32-36 Automated erythrocyte distribution width ratio 13. 8 % 10.0- 14.5 Automated blood platelet count (count/volume) 226 10*3/uL 130-400 Automated blood platelet mean volume measurement 9.4 [foz_us] 7.4-10.4 Automated blood neutrophils/100 leukocytes 54 % 42-75 Automated blood lymphocytes/100 leukocytes 35 % 12-44 Blood monocytes/100 leukocytes 6 % 0-12 Automated blood eosinophils/100 leukocytes 5 % 0-10 Automated blood basophils/100 leukocytes 0 % 0-10 Blood neutrophils automated count (number/volume) 2.5 10*3 1.8-7.8 Blood lymphocytes automated count (number/volume) 1.6 10*3 1.0-4.0 Blood monocytes automated count (number/volume) 0. 3 10*3 0.0-1.0 Automated eosinophil count 0.2 10*3/uL 0 .0-0.3 Automated blood basophil count (count/volume) 0.0 10*3/uL 0.0-0.1 Comprehensive metabolic panel - 11/05/19 09:56 Serum or plasma sodium measurement (moles/volume) 144 mmol/L 135-145 Serum or plasma potassium measurement (moles/volume) 4.2 mmol/L 3.6-5.0 Serum or plasma chloride measurement (moles/volume) 106 mmol/L 98-107 Carbon dioxide 25 mmol/L 21-32 Serum or plasma anion gap determination (moles/volume) 13 mmol/L 5-14 Serum or plasma urea nitrogen measurement (mass/volume ) 13 mg/dL 7-18 Serum or plasma creatinine measurement (mass/volume) 1.02 mg/dL 0.60-1.30 Serum or plasma urea nitrogen/creatinine mass ratio 13 NRG Serum or plasma creatinine measurement w ith calculation of estimated glomerular filtration rate 52 NRG Serum or plasma glucose measurement (mass/volume) 102 mg/dL 70-105 Serum or plasma calcium measurement (mass/volume) 9.5 mg/dL 8.5-10.1 Serum or plasma total bilirubin measurement (mass/volu me) 0.3 mg/dL 0.1-1.0 Serum or plasma alkaline phosphatase mira surement (enzymatic activity/volume) 127 U/L 40-136 Serum or plasma aspartate aminotransfera se measurement (enzymatic activity/volume) 17 U/L 5-34 Serum or plasma alanine aminotransferase measurement (enzymatic activity/volume) 10 U/L 0-55 Serum or plasma protein measurement (mass/volume) 6.8 g/dL 6.4-8.2 Serum or plasma albumin measurement (mass/volume) 4.4 g/dL 3.2-4.5 CALCIUM CORRECTED 9.2 mg/dL 8.5-10.1 TROPONIN I FS - 11/05/19 09:56 TROPONIN I FS < 0.30 <0.30 PROBNP FS - 11/05/19 09:56 PROBNP FS 453.6 pg/mL <75.0 TROPONIN I FS - 11/05/19 12:30 TROPONIN I FS < 0.30 <0.30 Complete blood count (CBC) with automate d white blood cell (WBC) differential - 02/03/20 17:50 Blood leukocytes automated count (number/volume) 5.2 10*3/uL 4.3-11.0 Blood erythrocytes automated count (number/volume) 4.19 10*6/uL 4.35-5.85 Venous blood hemoglobin measurement (mass/volume) 11.9 g/dL 11.5-16.0 Blood hematocrit (volume fraction) 37 % 35-52 Automated erythrocyte mean corpuscular volume 89 [ foz_us] 80-99 Automated erythrocyte mean corpuscular h emoglobin (mass per erythrocyte) 28 pg 25-34 Automated erythrocyte mean corpuscular h emoglobin concentration measurement (mass/volume) 32 g/dL 32-36 Automated erythrocyte distribution width ratio 13. 6 % 10.0- 14.5 Automated blood platelet count (count/volume) 231 10*3/uL 130-400 Automated blood platelet mean volume measurement 9.6 [foz_us] 7.4-10.4 Automated blood neutrophils/100 leukocytes 53 % 42-75 Automated blood lymphocytes/100 leukocytes 33 % 12-44 Blood monocytes/100 leukocytes 9 % 0-12 Automated blood eosinophils/100 leukocytes 4 % 0-10 Automated blood basophils/100 leukocytes 1 % 0-10 Blood neutrophils automated count (number/volume) 2.8 10*3 1.8-7.8 Blood lymphocytes automated count (number/volume) 1.7 10*3 1.0-4.0 Blood monocytes automated count (number/volume) 0. 5 10*3 0.0-1.0 Automated eosinophil count 0.2 10*3/uL 0 .0-0.3 Automated blood basophil count (count/volume) 0.0 10*3/uL 0.0-0.1 PT panel in platelet poor plasma by coag ulation assay - 02/03/20 17:50 Prothrombin time (PT) in platelet poor plasma by coagu lation assay 13.1 s 12.2-14.7 INR in platelet poor plasma or blood by coagulation as say 1.0 0.8-1.4 Activated partial thromboplastin time (a PTT) in platelet poor plasma bycoagulation assay - 02/03/20 17:50 Activated partial thromboplastin time (a PTT) in platelet poor plasma bycoagulation assay 25 s 24-35 TROPONIN I FS - 02/03/20 17:50 TROPONIN I FS < 0.30 <0.30 PROBNP FS - 02/03/20 17:50 PROBNP FS 536.0 pg/mL <75.0 Comprehensive metabolic panel - 02/03/20 17:50 Serum or plasma sodium measurement (moles/volume) 143 mmol/L 135-145 Serum or plasma potassium measurement (moles/volume) 4.3 mmol/L 3.6-5.0 Serum or plasma chloride measurement (moles/volume) 104 mmol/L 98-107 Carbon dioxide 26 mmol/L 21-32 Serum or plasma anion gap determination (moles/volume) 13 mmol/L 5-14 Serum or plasma urea nitrogen measurement (mass/volume ) 16 mg/dL 7-18 Serum or plasma creatinine measurement (mass/volume) 1.04 mg/dL 0.60-1.30 Serum or plasma urea nitrogen/creatinine mass ratio 15 NRG Serum or plasma creatinine measurement w ith calculation of estimated glomerular filtration rate 51 NRG Serum or plasma glucose measurement (mass/volume) 84 mg/dL 70-105 Serum or plasma calcium measurement (mass/volume) 9.3 mg/dL 8.5-10.1 Serum or plasma total bilirubin measurement (mass/volu me) 0.2 mg/dL 0.1-1.0 Serum or plasma alkaline phosphatase mira surement (enzymatic activity/volume) 130 U/L 40-136 Serum or plasma aspartate aminotransfera se measurement (enzymatic activity/volume) 17 U/L 5-34 Serum or plasma alanine aminotransferase measurement (enzymatic activity/volume) 10 U/L 0-55 Serum or plasma protein measurement (mass/volume) 6.9 g/dL 6.4-8.2 Serum or plasma albumin measurement (mass/volume) 4.2 g/dL 3.2-4.5 CALCIUM CORRECTED 9.1 mg/dL 8.5-10.1 Magnesium - 02/03/20 17:50 Magnesium 2.3 mg/dL 1.6-2.4 Myoglobin, serum - 02/03/20 17:50 Myoglobin, serum 30.9 ng/mL 10.0-92.0 Encounters ACCT No. Visit Date/Time Discharge Status Pt. Type Provider Facility Loc./Unit Complaint [id number] 11/21/2019 13:20:00 11/21/2019 23:59: 59 CLS Outpatient [facility] [id number] 08/06/2019 16:00:00 Document Registration [id number] 07/12/2019 10:15:00 Document Registration [id number] 07/09/2019 14:00:00 Document Registration [id number] 01/24/2019 11:20:00 Document Registration [id number] 02/03/2020 16:55:00 020 19:01:00 DIS Emergency ANDREY EMERY MD [facility] ER FS DIZZINESS,EAR PRESSURE [id number] 11/05/2019 09:48:00 019 13:18:00 DIS Emergency TUCKER CLAROS DO [facility] ER FS CHEST PAIN [id number] 07/04/2019 09:16:00 019 11:50:00 DIS Emergency SAMIR RICHARDS DO [facility] ER FS DIZZINESS
--- OUTSIDE RECORDS SUMMARY | 2020-02-04 00:49 | XMS REPORT ---
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 e 48742997 Problem Diaphragmatic hernia without mention of obstruction or gangrene K44.9 Active 07742760 Problem Contusion of left shoulder S40.012A Nov, Active [id number] Problem Non morbid obesity due to excess calories E66.09 Oct, Active 797028527 Problem Benign hypertension I10 Apr, Active 67370813 Problem Arthropathy M12.9 Active 63176300 3 Problem Asthma J45.909 Active 124238788 Problem Other psoriasis L40.8 Active 9014 002 Problem Impaired fasting glucose R73.01 14 Aug, 2011 Ac tive 891429586 Problem Non-rheumatic mitral regurgitation I34.0 2016 Active 933335826 Problem Allergic rhinitis due to pollen J30.1 Active 73457011 Problem 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 28076333 Problem Cervical strain S16.1XXA Nov, Active 3 32779875 Problem Pulmonary hypertension I27.20 14 Sep, 2014 Acti ve 66072047 Problem Nonrheumatic aortic valve stenosis I35.0 Active 785679098 Problem Mild intermittent asthma with acute exacerbation J 45.21 Active 236423741 Problem Rheumatic aortic stenosis 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.0 Acti ve 77696863 Problem Severe obesity (BMI 35.0-39.9) with comorbidity E66.01 04 Oct, 2017 Active 729698543 Problem Chronic kidney disease, stage 3 (moderate) N18.3 Active 487002960 Problem Osteoarthritis of right knee M17.11 01 Oct, 201 0 Active 066517242 Problem Hyperlipidemia E78.5 16 Feb, 2013 Active 55 125923 Problem Essential hypertension I10 Active 59807151 Problem Aortic valve stenosis, etiology of cardiac valve disease unspecified I35.0 Active 90133366 Problem Other chronic pain G89.29 Active 8 8728967 Problem GERD without esophagitis K21.9 Activ e 194124953 ALLERGIES Substance Reaction Event Type Date Status Vitamin D Unknown Drug Allergy Jan, Active Penicillin Unknown Non Drug Allergy Jan, Active sulfa Unknown Non Drug Allergy Jan, Active ENCOUNTERS Encounter Location Date Diagnosis [place] [address] [place] [phone] 9 Jan, [place] [address] [place] [address]973 9 Nov, [place] [address] [place] [phone] 9 Nov, Chronic kidney disease, stage 3 (moderate) N18.3 ; Essential hypertension I10 ; GERD without esophagitis K21.9 and Costochondral pain R07.1 [place] [address] [place] [phone] 9 Oct, Atypical chest pain R07.89 ; GERD without esophagitis K21.9 and Costochondral pain R07.1 [facility] [address] [facility] [place] [address] Oct, [facility] [address] [place] [phone] 9 Oct, [facility] [address] [address] [place] [address] Sep, Fall, initial encounter W19. XXXA and Acute right hip pain M25.551 [place] [address] [place] [address] 9 Sep, Pain in right shoulder M25.511 ; Essential hypertension I10 ; Hyperlipidemia E78.5 ; Other fatigue R53.83 and Other chronic pain G89.29 [place] [address] [place] [phone] 9 Sep, [facility] [address] [place] [address] 9 Jul, Other fatigue R53.83 ; Localized swelling of both lower legs R22.43 ; Acute pain of right shoulder M25.511 ; Painful urination R30.9 and Acute UTI N39.0 [place] [address] [place] [address] Jun, Anemia, unspecified type D64 .9 and Acute UTI N39.0 [place] [address] [place] [address] 9 Jun, Nonrheumatic aortic valve stenosis I35.0 ; Dizziness R42 and Benign hypertension I10 [place] [address] [place] [address] Jun, Dizziness R42 [place] [address] [place] [address] 9 Jun, Dizziness R42 ; Anemia, unspecified type D64.9 ; Acute UTI N39.0 ; Murmur, heart R01.1 and GERD without esophagitis K21.9 [facility] [address] [facility] [place] [address] Jun, [place] [address] [place] [address] 9 Jun, Diarrhea, unspecified type R19.7 [place] [address] [place] [address] 9 May, Strain of left shoulder, initial encounter S46.912A and Costochondral pain R07.1 [place] [address] [place] [phone] 9 March, Pain in right shoulder M25.511 and Other chronic pain G89.29 [place] [address] [place] [address] [place] [address] 9 Feb, Cervical strain S16.1XXA [place] [address] [place], [place] [id number] [place] [address] 9 Feb, [facility] [address] [place] [id number] [place] [address] 9 Feb, Cervical radicular pain M54.12 [place] [address] [place], [place] [id number] [place] [phone] 9 Feb, [place] [address] [place] [id number] [place] [address] 9 Jan, Essential hypertension I10 ; Nonrheumatic aortic valve stenosis I35.0 and Mild intermittent asthma with acute exacerbation J45.[address] [place] [address] Jan, Nonrheumatic aortic valve st enosis I35.0 [place] [address] [id number] [address] Jan, [facility] [address] [place] [address] Jan, Nasopharyngitis J00 [place] [address] [id number] [address] Nov, Nonrheumatic aortic valve stenosis I35.0 ; Mild intermittent asthma with acute exacerbation J45.21 and Essential hypertension I10 [facility] [address] [place] [id number] [place] [address] Oct, [facility] [address] [place] [id number] [place] [address] Oct, [place] [address] [address] Jul, IMMUNIZATIONS No Known Immunizations SOCIAL HISTORY Never Assessed REASON FOR VISIT Hypertension, Pt has had lab. R arm is hurting pt. GAMA Mao PLAN OF CARE Activity Details Follow Up 6 Months Reason: VITAL SIGNS Height 59 in 2019-01-29 Weight 165 lbs 2019-01-29 Temperature 98.0 degrees Fahrenheit 2019-01-29 Heart Rate 72 bpm 2019-01-29 Respiratory Rate 14 2019-01-29 BMI 33.32 kg/m2 2019-01-29 Blood pressure systolic 130 mmHg 2019-01-29 Blood pressure diastolic 60 mmHg 2019-01-29 MEDICATIONS Medication Instructions Dosage Frequency Start Date End Date Duration S tatus Latanoprost 0.005 % Ophthalmic Once a day 1 drop into affect ed eye in the evening 24h Active Flovent Diskus 50 MCG/BLIST Inhalation Twice a day 1 puff 12h Active Lisinopril 20 MG Orally Once a day 1 tablet 24h 30 d ay(s) Active Flonase 50 MCG/ACT Nasally Once a day 1 spray in each nostril 24h 30 day(s) Active Singulair 10 MG Orally Once a day 1 tablet 24h 30 da y(s) Active Theophylline ER 300 MG Orally daily 1 tablet 24h 30 day(s) Active Serevent Diskus 50 MCG/DOSE Inhalation daily 1 puff 24h Active RESULTS No Results PROCEDURES Procedure Date Ordered Result Body Site [facility] VISIT ESTABLISHED PATIENT January 29, 2019 INSTRUCTIONS MEDICATIONS ADMINISTERED No Known Medications MEDICAL (GENERAL) HISTORY Type Description Date Medical History hypertension Medical History murmur Medical History heart valve needs replaced Medical History asthma Medical History copd Medical History glaucoma Surgical History cholecystectomy Surgical History c section Hospitalization History see surgeries
== END 2020-02-03 19:01 | disposition home or self-care (01) ==
LOC: EDUNIT# 16:54 → ER FS 16:55
DX: R42 Dizziness and giddiness (principal); Z88.0 Allergy status to penicillin; Z88.2 Allergy status to sulfonamides; Z88.8 Allergy status to other drugs, medicaments and biological substances
CPT/HCPCS: 36415; 70450; 71045; 80053; 83735; 83874; 83880; 84484; 85025; 85610; 85730; 93005; 93041

== ENCOUNTER 2020-06-12 16:04 | Emergency (ER) | payer MEDICARE ==
[~2020-06-12] VITALS: Ht 149 cm; Wt 60.0 kg
[~2020-06-12 16:04] MED LIST changes: +MECL-172 PO
--- NOTE | 2020-06-12 16:28 | ED Headache ---
General Chief Complaint: Head/Cervical Problems Stated Complaint: HEADACHE Nursing Triage Note: PT STATES SHE STARTED HAVING A HEADACHE LAST NIGHT. SHE WENT TO SEE DR CRUZ TODAY AND HE SENT HER HERE FOR "XRAYS OF HER HEAD: SHE STATED. THE PT REPORTS SHE HAS NECK PAIN OFF AND ON ALL THE TIME AND HAS FOR YEARS. SHE HAS NOT TAKEN ANY MEDICATIONS FOR THE HEADACHE. Nursing Sepsis Screen: No Definite Risk History of Present Illness Date Seen by Provider: Jun 12, 2020 Time Seen by Provider: 16:15 Initial Comments 80-year-old female complains of a diffuse headache and initially bilateral frontal and parietal no hx of fall or injury started midnight last night interfered with sleep but then also complains of her sinuses, so maxillary temporal frontal parietal also kind of aches in her neck also her lower back says she's had a little bit of sinus congestion and white nasal discharge occasionally denies chest pain shortness of breath fever or cough says she's had abdominal pain, in fact says she has been seen for abdominal pain in various clinics in the area every day for the last 3 days, but currently has no abdominal pain denies nausea vomiting diarrhea acknowledges urinary frequency no other urinary symptoms Allergies and Home Medications Allergies Coded Allergies: Penicillins (Verified Allergy, Unknown, 07/04/19) Sulfa (Sulfonamide Antibiotics) (Verified Allergy, Unknown, 07/04/19) cholecalciferol (vitamin D3) (Verified Allergy, Unknown, 07/04/19) Home Medications Ibuprofen 600 Mg Tablet, 600 MG PO Q6H PRN for PAIN-MILD Prescribed by: TUCKER CLAROS on 11/05/19 1302 Levofloxacin 500 Mg Tablet, 500 MG PO DAILY Prescribed by: RYLAN TERRAZAS on 06/12/20 1714 Meclizine HCl 25 Mg Tab.chew, 25 MG PO Q6H PRN for DIZZINESS Prescribed by: SUSIE DAWSON on 07/04/19 1134 Meclizine HCl 12.5 Mg Tablet, 12.5 MG PO BID Prescribed by: ANDREY EMERY on 02/03/20 1847 Nitrofurantoin Monohyd/M-Cryst 100 Mg Capsule, 1 TAB PO BID Prescribed by: SUSIE DAWSON on 07/04/19 1143 Patient Home Medication List Home Medication List Reviewed: Yes Review of Systems Review of Systems Constitutional: no symptoms reported Eyes: No Symptoms Reported Ears, Nose, Mouth, Throat: mouth pain (says gums sore), throat pain (slight ST describes sinus congestion) Respiratory: no symptoms reported; No cough Cardiovascular: no symptoms reported, other (hxloud systolic M says is to have echo in 3days) Gastrointestinal: no symptoms reported Genitourinary: frequency (only sx) Musculoskeletal: back pain, neck pain Skin: no symptoms reported Psychiatric/Neurological: No Symptoms Reported Past Bmwbtfw-Hhfjwl-Qsknjw Hx Patient Social History Alcohol Use: Denies Use Recreational Drug Use: No 2nd Hand Smoke Exposure: No Recent Foreign Travel: No Contact w/Someone Who Travel: No Recent Infectious Disease Expo: No Recent Hopitalizations: No Physical Abuse: No Sexual Abuse: No Mistreated: No Fear: No Seasonal Allergies Seasonal Allergies: No Past Medical History Surgeries: Yes Section, Gallbladder Respiratory: Yes Asthma Cardiac: Yes Heart Murmur Neurological: No Genitourinary: No Gastrointestinal: No Musculoskeletal: No Endocrine: No HEENT: No Cancer: No Psychosocial: No Integumentary: No Blood Disorders: No Physical Exam Vital Signs Vital Signs - First Documented 06/12/20 16:09 Temp 36.7 Pulse 84 Resp 16 B/P (MAP) 145/51 (82) Pulse Ox 98 Capillary Refill : Less Than 3 Seconds Height, Weight, BMI Height: 4'11.00" Weight: 163lbs. oz. 73.354497ws; 27.00 BMI Method:Stated General Appearance: WD/WN, no apparent distress HEENT: PERRL/EOMI, TMs normal, pharynx normal Neck: supple, other (definitely no meningismus) Cardiovascular: systolic murmur Respiratory: normal breath sounds, no respiratory distress Gastrointestinal: normal bowel sounds, non tender, soft Extremities: normal inspection Psychiatric: alert, oriented x 3 Crainal Nerves: PERRL; No facial asymmetry Coordination/Gait: normal gait Motor/Sensory: no motor deficit, no sensory deficit Progress/Results/Core Measures Results/Orders Lab Results Laboratory Tests Test 06/12/20 16:10 06/12/20 16:25 Range/Units Urine Color YELLOW Urine Clarity CLEAR Urine pH 5.5 5-9 Urine Specific [place] <=1.005 1.016-1.022 Urine Protein NEGATIVE NEGATIVE Urine Glucose (UA) NEGATIVE NEGATIVE Urine Ketones NEGATIVE NEGATIVE Urine Nitrite NEGATIVE NEGATIVE Urine Bilirubin NEGATIVE NEGATIVE Urine Urobilinogen 0.2 < = 1.0 MG/DL Urine Leukocyte Esterase 3+ H NEGATIVE Urine RBC (Auto) NEGATIVE NEGATIVE Urine RBC NONE /HPF Urine WBC 10-25 H /HPF Urine Squamous Epithelial Cells 2-5 /HPF Urine Crystals NONE /LPF Urine Bacteria NEGATIVE /HPF Urine Casts NONE /LPF Urine Mucus NEGATIVE /LPF Urine Culture Indicated YES White Blood Count 5.7 4.3-11.0 10^3/uL Red Blood Count 4.22 L 4.35-5.85 10^6/uL Hemoglobin 12.2 11.5-16.0 G/DL Hematocrit 37 35-52 % Mean Corpuscular Volume 87 80-99 FL Mean Corpuscular Hemoglobin 29 25-34 PG Mean Corpuscular Hemoglobin Concent 33 32-36 G/DL Red Cell Distribution Width 13.2 10.0-14.5 % Platelet Count 234 130-400 10^3/uL Mean Platelet Volume 9.6 7.4-10.4 FL Neutrophils (%) (Auto) 63 42-75 % Lymphocytes (%) (Auto) 27 12-44 % Monocytes (%) (Auto) 7 0-12 % Eosinophils (%) (Auto) 3 0-10 % Basophils (%) (Auto) 1 0-10 % Neutrophils # (Auto) 3.6 1.8-7.8 X 10^3 Lymphocytes # (Auto) 1.5 1.0-4.0 X 10^3 Monocytes # (Auto) 0.4 0.0-1.0 X 10^3 Eosinophils # (Auto) 0.2 0.0-0.3 10^3/uL Basophils # (Auto) 0.0 0.0-0.1 10^3/uL Erythrocyte Sedimentation Rate 52 H 0-30 MM/HR Sodium Level 139 135-145 MMOL/L Potassium Level 4.6 3.6-5.0 MMOL/L Chloride Level 101 98-107 MMOL/L Carbon Dioxide Level 26 21-32 MMOL/L Anion Gap 12 5-14 MMOL/L Blood Urea Nitrogen 11 7-18 MG/DL Creatinine 1.10 0.60-1.30 MG/DL Estimat Glomerular Filtration Rate 48 BUN/Creatinine Ratio 10 Glucose Level 112 H 70-105 MG/DL Calcium Level 9.6 8.5-10.1 MG/DL Corrected Calcium 9.3 8.5-10.1 MG/DL Total Bilirubin 0.3 0.1-1.0 MG/DL Aspartate Amino Transf (AST/SGOT) 16 5-34 U/L Alanine Aminotransferase (ALT/SGPT) 8 0-55 U/L Alkaline Phosphatase 150 H 40-136 U/L Troponin I < 0.30 <0.30 NG/ML Total Protein 7.2 6.4-8.2 GM/DL Albumin 4.4 3.2-4.5 GM/DL My Orders Orders - RYLAN TERRAZAS MD Cbc With Automated Diff (06/12/20 16:23) Comprehensive Metabolic Panel (06/12/20 16:23) Urinalysis (06/12/20 16:23) Troponin I Fs (06/12/20 16:23) Erythrocyte Sedimentation Rate (06/12/20 16:28) Ct Head Wo (06/12/20 16:23) Urine Culture (06/12/20 16:10) Vital Signs/I&O 06/12/20 16:09 Temp 36.7 Pulse 84 Resp 16 B/P (MAP) 145/51 (82) Pulse Ox 98 Blood Pressure Mean: 82 Progress Progress Note : Progress Note Patient appears to be in no distress she has declined any type of pain medication other than heart murmur exam is normal CT head report does mention mild mucosal thickening in maxillary and ethmoid sinuses is otherwise negative Hemoglobin 12.2 white blood count normal at 5700 urine shows no bacteria but 10- 25 white cells and 3+ leukocyte esterase CMP - ess neg trop - neg sed rate - is elevated at 52 pt has no discernible temporal artery tenderness on exam will rescribe Levaquin in hopes of covering sinuses and urine and prednisone to help with sinuses and also because of the elevated sedimentation rate patient will need to follow up with primary to assure that sedimentation rate is going down with what will hopefully be improvement in the sinuses and headache patient continues to not want anything specifically to treat the pain and con sistently appearing to be in no distress Departure Impression Primary Impression: Sinusitis Qualified Codes: J01.00 - Acute maxillary sinusitis, unspecified Additional Impression: UTI (urinary tract infection) Qualified Codes: N30.00 - Acute cystitis without hematuria Disposition: HOME, SELF-CARE Condition: Stable Departure-Patient Inst. Decision time for Depature: 17:23 Referrals: SAMANTHA CRUZ MD (PCP/Family) Primary Care Physician Patient Instructions: Sinusitis in Adults, Urinary Tract Infections in Adults Add. Discharge Instructions: the CAT scan did suggest presence of a sinus infection also your urine appeared to have signs of infection and a blood test called the sedimentation rate was elevated you have been provided with copies of these We ask that you follow up with Dr. Cruz in 3-4 days so he can review how you are progressing and so he can be aware of these findings Scripts Prednisone (Prednisone) 20 Mg Tab 40 MG PO DAILY, #7 TAB 0 Refills Prov: RYLAN TERRAZAS MD 06/12/20 Levofloxacin (Levaquin) 500 Mg Tablet 500 MG PO DAILY for 7 Days, #7 TAB Prov: RYLAN TERRAZAS MD 06/12/20 RYLAN TERRAZAS MD Jun 12, 2020 16:28
[2020-06-12 16:34] LABS: WHITE BLOOD COUNT 5.7 10^3/uL (4.3-11.0)
[2020-06-12 16:35] LABS: BASOPHILS % (AUTO) 1 % (0-10); EOSINOPHILS % (AUTO) 3 % (0-10); HEMATOCRIT 37 % (35-52); HEMOGLOBIN 12.2 G/DL (11.5-16.0); LYMPHOCYTES # (AUTO) 1.5 X 10^3 (1.0-4.0); LYMPHOCYTES % (AUTO) 27 % (12-44); MEAN CORPUSCULAR HEMOGLOBIN 29 PG (25-34); MEAN CORPUSCULAR HGB CONC 33 G/DL (32-36); MEAN CORPUSCULAR VOLUME 87 FL (80-99); MEAN PLATELET VOLUME 9.6 FL (7.4-10.4); MONOCYTES % (AUTO) 7 % (0-12); NEUTROPHILS # (AUTO) 3.6 X 10^3 (1.8-7.8); NEUTROPHILS % (AUTO) 63 % (42-75); PLATELET COUNT 234 10^3/uL (130-400); RED CELL DISTRIBUTION WIDTH 13.2 % (10.0-14.5)
[2020-06-12 16:36] LABS: EOSINOPHILS # (AUTO) 0.2 10^3/uL (0.0-0.3); MONOCYTES # (AUTO) 0.4 X 10^3 (0.0-1.0)
[2020-06-12 16:43] LABS: CLARITY,URINE CLEAR; COLOR,URINE YELLOW; PH,URINE 5.5 (5-9)
[2020-06-12 16:44] LABS: BACTERIA,URINE NEGATIVE /HPF; BILIRUBIN,URINE NEGATIVE (NEGATIVE); GLUCOSE, URINE (UA) NEGATIVE (NEGATIVE); KETONES,URINE NEGATIVE (NEGATIVE); LEUKOCYTE ESTERASE ,URINE 3+ (NEGATIVE); NITRITE,URINE NEGATIVE (NEGATIVE); PROTEIN,URINE NEGATIVE (NEGATIVE)
--- NOTE | 2020-06-12 16:57 | Diagnostic Imaging Report ---
PROCEDURE: CT head without contrast. TECHNIQUE: Multiple contiguous axial images were obtained through the brain without the use of intravenous contrast. Auto Exposure Controls were utilized during the CT exam to meet ALARA standards for radiation dose reduction. INDICATION: Headache. COMPARISON: CT head without contrast 02/03/2020. FINDINGS: Moderate generalized cerebral and cerebellar parenchymal volume loss. Moderate leukoaraiosis. No intracranial hemorrhage, mass effect, hydrocephalus or extra-axial fluid collections. No CT evidence of territorial infarction. Mild mucosal thickening in the maxillary and ethmoid sinuses. Mastoids are clear. IMPRESSION: No acute intracranial CT findings. Dictated by: Dictated on workstation # [id number]
[2020-06-12 17:02] LABS: ALANINE AMINOTRANSFERASE 8 U/L (0-55); ALKALINE PHOSPHATASE 150 U/L (40-136); BILIRUBIN,TOTAL 0.3 MG/DL (0.1-1.0); BUN/CREATININE RATIO 10; CALCIUM 9.6 MG/DL (8.5-10.1); CARBON DIOXIDE 26 MMOL/L (21-32); CHLORIDE 101 MMOL/L (98-107); GFR ESTIMATED 48; GLUCOSE 112 MG/DL (70-105); POTASSIUM 4.6 MMOL/L (3.6-5.0); SODIUM 139 MMOL/L (135-145)
[2020-06-12 17:03] LABS: ALBUMIN 4.4 GM/DL (3.2-4.5); TOTAL PROTEIN 7.2 GM/DL (6.4-8.2)
[2020-06-12 17:05] LABS: ERYTHROCYTE SEDIMENTATION RATE 52 MM/HR (0-30)
[2020-06-12] MEDS ORDERED: LEVO500T2 PO (17:14)
[2020-06-12] MEDS ORDERED: PRD20T PO (17:22)
[2020-06-12 17:28] VITALS: BP 140/65
--- OUTSIDE RECORDS SUMMARY | 2020-06-12 19:26 | XMS REPORT | Continuity of Care Document ---
Author Organization Unknown Address Unknown Phone Unavailable Allergies Active Description Code Type Severity Reaction Onset Reported/Identified Relationship to Patient Clinical Status Yes cholecalciferol (vitamin D3) [id number] 4 Drug Allergy Unknown N/A 07/04/2019 Yes Penicillins [id number] Drug Aller gy Unknown N/A 07/04/2019 Yes Sulfa (Sulfonamide Antibiotics) [id number] Drug Allergy Unknown N/A 019 Medications [...] Z88. 0 ALLERGY STATUS TO PENICILLIN 07/08/2019 SAMIR RICHARDS DO Ot Z88. 2 ALLERGY [...] STATUS TO OTH DRUG/MEDS/BIOL SUB 11/08/2019 ROVENSTINE DO TUCKER L Ot J45.909 UNSPECIFIED ASTHMA, UNCOMPLICATED 11/08/2019 ROVENSTINE DO, TUCKER L Ot R07.9 CHEST PAIN, UNSPECIFIED 11/08/2019 ROVENSTINE DO, TUCKER Nuñez Ot Z88.0 ALLERGY STATUS TO PENICILLIN 11/08/2019 ROVENSTINE DO, TUCKER L Ot Z88.2 ALLERGY STATUS TO SULFONAMIDES STATUS 11/08/2019 ROVENSTINE DO, TUCKER L Ot Z88.8 ALLERGY STATUS TO OTH DRUG/MEDS/BIOL SUB 02/03/2020 ANDREY EMERY MD, Ot R4 2 DIZZINESS AND GIDDINESS 02/03/2020 ANDREY EMERY MD Ot Z88.0 ALLERGY STATUS TO PENICILLIN 02/03/2020 ANDREY EMERY MD Ot Z88.2 ALLERGY STATUS TO SULFONAMIDES STATUS 02/03/2020 ANDREY EMERY MD Ot Z88.8 ALLERGY STATUS TO OTH DRUG/MEDS/BIOL SUB 02/06/2020 ANDREY EMERY MD, Ot R4 2 DIZZINESS AND GIDDINESS 02/06/2020 ANDREY EMERY MD Ot Z88.0 ALLERGY STATUS TO PENICILLIN 02/06/2020 ANDREY EMERY MD Ot Z88.2 ALLERGY STATUS TO SULFONAMIDES STATUS 02/06/2020 ANDREY EMERY MD Ot Z88.8 ALLERGY STATUS TO OTH DRUG/MEDS/BIOL [...] 7-25 CREATININE 1.17 mg/dL 0.60-0.93 eGFR NON-AFR. BELARUSIAN 44 mL/min/1.73m2 > OR = 60 eGFR [...] 02/03/20 17:50 Myoglobin, serum 30.9 ng/mL 10.0-92.0 TSH w/ FREE T4 - 02/05/20 10:47 TSH 1.11 mIU/L 0.40-4.50 T4, FREE 1.3 ng/dL 0.8-1.8 LIPID PANEL - 02/05/20 10:47 CHOLESTEROL, TOTAL 203 mg/dL <200 HDL CHOLESTEROL 84 mg/dL > OR = 50 TRIGLYCERIDES 101 mg/dL <150 LDL-CHOLESTEROL 100 mg/dL (calc) NRG CHOL/HDLC RATIO 2.4 (calc) <5.0 NON HDL CHOLESTEROL 119 mg/dL (calc) <13 0 CMP - 02/05/20 10:47 GLUCOSE 92 mg/dL 65-99 UREA NITROGEN (BUN) 17 mg/dL 7-25 CREATININE 1.18 mg/dL 0.60-0.88 eGFR NON-AFR. BELARUSIAN 44 mL/min/1.73m2 > OR = 60 eGFR 50 mL/min/1.73m2 > OR = 60 BUN/CREATININE RATIO 14 (calc) 6-22 SODIUM 142 mmol/L 135-146 POTASSIUM 4.6 mmol/L 3.5-5.3 CHLORIDE 105 mmol/L 98-110 CARBON DIOXIDE 25 mmol/L 20-32 CALCIUM 9.1 mg/dL 8.6-10.4 PROTEIN, TOTAL 6.2 g/dL 6.1-8.1 ALBUMIN 4.2 g/dL 3.6-5.1 GLOBULIN 2.0 g/dL (calc) 1.9-3.7 ALBUMIN/GLOBULIN RATIO 2.1 (calc) 1.0-2. 5 BILIRUBIN, TOTAL 0.4 mg/dL 0.2-1.2 ALKALINE PHOSPHATASE 131 U/L 37-153 AST 17 U/L 10-35 ALT 12 U/L 6-29 CBC w/MANUAL DIFF - 02/05/20 10:47 WHITE BLOOD CELL COUNT 4.8 Thousand/uL 3 .8-10.8 RED BLOOD CELL COUNT 4.18 Million/uL 3.8 0-5.10 HEMOGLOBIN 11.9 g/dL 11.7-15.5 HEMATOCRIT 36.8 % 35.0-45.0 MCV 88.0 fL 80.0-100.0 MCH 28.5 pg 27.0-33.0 MCHC 32.3 g/dL 32.0-36.0 RDW 13.7 % 11.0-15.0 PLATELET COUNT 246 Thousand/uL 140-400 MPV 10.3 fL 7.5-12.5 ABSOLUTE NEUTROPHILS 3120 cells/uL 1500- 7800 ABSOLUTE MONOCYTES 288 cells/uL 200-950 ABSOLUTE EOSINOPHILS 144 cells/uL 15-500 ABSOLUTE BASOPHILS 0 cells/uL 0-200 NEUTROPHILS 65.0 % NRG LYMPHOCYTES 26.0 % NRG MONOCYTES 6.0 % NRG EOSINOPHILS 3.0 % NRG BASOPHILS 0 % NRG ABSOLUTE LYMPHOCYTES 1248 cells/uL 850-3 900 PLATELET ESTIMATION ADEQUATE ADEQUATE COMMENT(S) NRG EHRLICHIA Ab PANEL-APPROVAL REQUIRED - 0 04/02/20 15:13 INTERPRETATION NRG LYME, TOTAL ANTIBODY/REFLEX WESTERN BLOT - 04/02/20 15:13 LYME AB SCREEN <0.90 index NRG FRANCOIS CTN SPOTTED FEVER, IgG, IgM - 03/20 03/09 15:13 RMSF IGG NOT DETECTED NRG RMSF IGM NOT DETECTED NRG Complete urinalysis with reflex to cultu re - 06/12/20 16:10 Urine color determination YELLOW NRG Urine clarity determination CLEAR NR G Urine pH measurement by test strip 5.5 5-9 Specific gravity of urine by test [...] by automated test strip (mass/volume) 0.2 mg/dL < = 1.0 Urine leukocyte esterase detection by dipstick 3+ NEGATIVE Automated urine sediment erythrocyte cou nt by microscopy (number/high power field) NONE NRG Automated urine sediment leukocyte count by microscopy (number/high power field) [HPF] NRG Bacteria detection in urine sediment by light microsco py NEGATIVE NRG Squamous epithelial cells detection in u rine sediment by light microscopy 2-5 NRG Crystals detection in urine sediment by light microsco py NONE NRG Casts detection in urine sediment by light microscopy NONE NRG Mucus detection in urine sediment by light microscopy NEGATIVE NRG Complete urinalysis with reflex to culture YES NRG Complete blood count (CBC) with automate d white blood cell (WBC) differential - 06/12/20 16:25 Blood leukocytes automated count (number/volume) 5.7 10*3/uL 4.3-11.0 Blood erythrocytes automated count (number/volume) 4.22 10*6/uL 4.35-5.85 Venous blood hemoglobin measurement (mass/volume) 12.2 g/dL 11.5-16.0 Blood hematocrit (volume fraction) 37 % 35-52 Automated erythrocyte mean corpuscular volume 87 [ foz_us] 80-99 Automated erythrocyte mean corpuscular h emoglobin (mass per erythrocyte) 29 pg 25-34 Automated erythrocyte mean corpuscular h emoglobin concentration measurement (mass/volume) 33 g/dL 32-36 Automated erythrocyte distribution width ratio 13. 2 % 10.0- 14.5 Automated blood platelet count (count/volume) 234 10*3/uL 130-400 Automated blood platelet mean volume measurement 9.6 [foz_us] 7.4-10.4 Automated blood neutrophils/100 leukocytes 63 % 42-75 Automated blood lymphocytes/100 leukocytes 27 % 12-44 Blood monocytes/100 leukocytes 7 % 0-12 Automated blood eosinophils/100 leukocytes 3 % 0-10 Automated blood basophils/100 leukocytes 1 % 0-10 Blood neutrophils automated count (number/volume) 3.6 10*3 1.8-7.8 Blood lymphocytes automated count (number/volume) 1.5 10*3 1.0-4.0 Blood monocytes automated count (number/volume) 0. 4 10*3 0.0-1.0 Automated eosinophil count 0.2 10*3/uL 0 .0-0.3 Automated blood basophil count (count/volume) 0.0 10*3/uL 0.0-0.1 Comprehensive metabolic panel - 06/12/20 16:25 Serum or plasma sodium measurement (moles/volume) 139 mmol/L 135-145 Serum or plasma potassium measurement (moles/volume) 4.6 mmol/L 3.6-5.0 Serum or plasma chloride measurement (moles/volume) 101 mmol/L 98-107 Carbon dioxide 26 mmol/L 21-32 Serum or plasma anion gap determination (moles/volume) 12 mmol/L 5-14 Serum or plasma urea nitrogen measurement (mass/volume ) 11 mg/dL 7-18 Serum or plasma creatinine measurement (mass/volume) 1.10 mg/dL 0.60-1.30 Serum or plasma urea nitrogen/creatinine mass ratio 10 NRG Serum or plasma creatinine measurement w ith calculation of estimated glomerular filtration rate 48 NRG Serum or plasma glucose measurement (mass/volume) 112 mg/dL 70-105 Serum or plasma calcium measurement (mass/volume) 9.6 mg/dL 8.5-10.1 Serum or plasma total bilirubin measurement (mass/volu me) 0.3 mg/dL 0.1-1.0 Serum or plasma alkaline phosphatase mira surement (enzymatic activity/volume) 150 U/L 40-136 Serum or plasma aspartate aminotransfera se measurement (enzymatic activity/volume) 16 U/L 5-34 Serum or plasma alanine aminotransferase measurement (enzymatic activity/volume) 8 U/L 0-55 Serum or plasma protein measurement (mass/volume) 7.2 g/dL 6.4-8.2 Serum or plasma albumin measurement (mass/volume) 4.4 g/dL 3.2-4.5 CALCIUM CORRECTED 9.3 mg/dL 8.5-10.1 TROPONIN I FS - 06/12/20 16:25 TROPONIN I FS < 0.30 <0.30 Erythrocyte sedimentation rate by rosalind gren method - 06/12/20 16:25 Erythrocyte sedimentation rate by westergren method 52 mm 0- 30 Encounters ACCT No. Visit Date/Time Discharge Status Pt. Type Provider Facility Loc./Unit Complaint [id number] 06/09/2020 16:20:00 06/09/2020 23:59: 59 CLS Outpatient SAMANTHA RUTLEDGE [facility] [id number] 04/02/2020 15:20:00 Document Registration [id number] 02/05/2020 10:30:00 Document Registration [id number] 08/06/2019 16:00:00 Document Registration [id number] 07/12/2019 10:15:00 Document Registration [id number] 07/09/2019 14:00:00 Document Registration [id number] 01/24/2019 11:20:00 Document Registration [id number] 06/12/2020 16:06:00 17:33:00 DIS Emergency NINI ORTIZ, RYLAN Feldman [facility] ER FS HEADACHE [id number] 02/03/2020 16:55:00 19:01:00 DIS Emergency RUPERT ORTIZ, ANDREY Griggs [facility] ER FS DIZZINESS,EAR PRESSURE [id number] 11/05/2019 09:48:00 019 13:18:00 DIS Emergency TUCKER CLAROS DO [facility] ER FS CHEST PAIN [id number] 07/04/2019 09:16:00 019 11:50:00 DIS Emergency SAMIR RICHARDS DO [facility] ER FS DIZZINESS
== END 2020-06-12 17:33 | disposition home or self-care (01) ==
LOC: EDUNIT# 16:04 → ER FS 16:06
DX: J32.9 Chronic sinusitis, unspecified (principal); N39.0 Urinary tract infection, site not specified; Z88.0 Allergy status to penicillin; Z88.2 Allergy status to sulfonamides
CPT/HCPCS: 36415; 70450; 80053; 81000; 84484; 85025; 85652; 87088

== ENCOUNTER → 2021-11-01 | Outpatient (CLI) | payer MEDICARE ==
[~2021-11-01] MED LIST changes: +LEVO500T2 PO; -LISI-552; +LISI20TA26; -MECL-172 PO; +MECL-215 PO; +MONT-40; -MONT10TA26; +PRD20T PO
--- NOTE | 2021-11-01 10:29 | Diagnostic Imaging Report ---
INDICATION: Left knee pain. COMPARISON: None. FINDINGS: Three views of the left knee joint demonstrate no acute fracture or dislocation. No focal osseous lesions are seen. No significant joint effusion is seen. The surrounding soft tissue structures are unremarkable. There are no radiopaque foreign bodies. Moderate osteoarthritic changes are noted, greatest involving the lateral tibiofemoral compartment. IMPRESSION: 1. No acute fractures or dislocations of the left knee joint. 2. Moderate osteoarthritic changes. Dictated by: Dictated on workstation # [id number]
--- NOTE | 2021-11-01 11:04 | Diagnostic Imaging Report ---
INDICATION: Right knee pain. COMPARISON: None. FINDINGS: Three views of the right knee joint demonstrate no acute fracture or dislocation. No focal osseous lesions are seen. No significant joint effusion is seen. Moderate osteoarthritic changes are noted, greatest involving the lateral tibiofemoral and patellar trochlear compartments. The surrounding soft tissue structures are unremarkable. There are no radiopaque foreign bodies. IMPRESSION: 1. No acute fractures or dislocations of the right knee joint. 2. Moderate osteoarthritic changes. Dictated by: Dictated on workstation # [id number]
== END ==
LOC: RAD FS 09:36
PROVIDERS: ATTEND Nurse Practitioner
DX: M17.11 Unilateral primary osteoarthritis, right knee (principal); M17.12 Unilateral primary osteoarthritis, left knee
CPT/HCPCS: 73562

== ENCOUNTER → 2021-11-17 | Outpatient (CLI) | payer MEDICARE | LOC: CARD 13:00 | PROVIDERS: ATTEND Family Medicine | DX: I35.2 Nonrheumatic aortic (valve) stenosis with insufficiency (principal); I51.7 Cardiomegaly; I51.89 Other ill-defined heart diseases | CPT/HCPCS: 93306 ==

== ENCOUNTER 2021-12-10 05:01 | Emergency (ER) | payer MEDICARE ==
[~2021-12-10] VITALS: Ht 149.8 cm; Wt 71.6 kg
--- OUTSIDE RECORDS SUMMARY | 2021-12-10 05:06 | XMS REPORT | Clinical Summary ---
Author Author [facility] Organization [facility] Address Unknown Phone Unavailable Care Team Providers Care Adjunct Mathematics Instructor Name Role Phone PCP Unavailable Source Comments Some departments are not documenting in the electronic medical record. If you d o not see the information that you expected, contact Release of Information in [facility] Information Management department at [phone] for further assistan ce in locating additional records.[facility] Allergies Not on File Medications Not on file Active Problems Not on file Social History Date Tobacco Use Types Packs/Day Years Used Never Assessed Sex Assigned at Date Recorded Not on file Last Filed Vital Signs Not on file Plan of Treatment Health Maintenance Due Date Last Done Comments DTAP/TDAP VACCINES (1 - 1957 Tdap) PHYSICAL (COMPREHENSIVE) 1958 EXAM SHINGLES RECOMBINANT 1989 VACCINE (1 of 2) OSTEOPOROSIS 2004 SCREENING/MONITORING PNEUMONIA (PPSV23) 2004 VACCINE (1 of 1 - PPSV23) INFLUENZA VACCINE 06/20/2021 Results Not on filefrom Last 3 Months
--- NOTE | 2021-12-10 05:21 | ED General ---
General Chief Complaint: Dizziness/Syncope Stated Complaint: DIZZINESS Nursing Triage Note: Pt c/o feeling dizzy on and off x 3 weeks. Pt denies n/v, numbness/tingling to extremities, CP, or SOA. Reports previous hx of vertigo but does not take medication and stated "it just went away." Pt is ambulatory with steady gait using a cane in ED. History of Present Illness Date Seen by Provider: Dec 10, 2021 Time Seen by Provider: 05:15 Initial Comments 81-year-old female presents with dizziness that she describes as off balance. She reports has been going on and off for about 3 weeks. That she has been doin g well for about the last week but then she had some dizziness again during the night. She denies that she has had a history of this in the past and a history of vertigo. She ambulated in without difficulty using her cane. She denies any chest pain, nausea, vomiting, shortness of breath, numbness, tingling, vision changes. Allergies and Home Medications Allergies Coded Allergies: Penicillins (Verified Allergy, Unknown, 07/04/19) Sulfa (Sulfonamide Antibiotics) (Verified Allergy, Unknown, 07/04/19) cholecalciferol (vitamin D3) (Verified Allergy, Unknown, 07/04/19) Patient Home Medication List Home Medication List Reviewed: Yes Diphenoxylate HCl/Atropine (Diphenoxylate-Atrop 2.5-0.025) 1 Each Tablet, (Reported) Entered as Reported by: LYN OLVERA on 07/04/19 09 Fluticasone Propionate (Flovent Hfa 220 mcg) 1 Ea Aero, (Reported) Entered as Reported by: LYN OLVERA on 07/04/19 09 Fluticasone Propionate (Fluticasone Propionate) 16 Gm [place].susp, (Reported) Entered as Reported by: LYN OLVERA on 07/04/19 09 Ibuprofen (Ibuprofen) 600 Mg Tablet, 600 MG PO Q6H PRN for PAIN-MILD Prescribed by: TUCKER CLAROS on 11/05/19 1302 Latanoprost (Latanoprost) 2.5 Ml Drops, (Reported) Entered as Reported by: LYN OLVERA on 07/04/19 09 Levofloxacin (Levaquin) 500 Mg Tablet, 500 MG PO DAILY Prescribed by: RYLAN TERRAZAS on 06/12/20 1714 Lisinopril (Lisinopril) 20 Mg Tablet, (Reported) Entered as Reported by: LYN OLVERA on 07/04/19 0949 Meclizine HCl (Meclizine HCl) 25 Mg Tab.chew, 25 MG PO Q6H PRN for DIZZINESS Prescribed by: SUSIE DAWSON on 07/04/19 1134 Meclizine HCl (Meclizine HCl) 12.5 Mg Tablet, 12.5 MG PO BID Prescribed by: ANDREY EMERY on 02/03/20 1847 Montelukast Sodium (Montelukast Sodium) 10 Mg Tablet, (Reported) Entered as Reported by: LYN OLVERA on 07/04/19 0949 Nitrofurantoin Monohyd/M-Cryst (Macrobid 100 mg Capsule) 100 Mg Capsule, 1 TAB PO BID Prescribed by: SUSIE DAWSON on 07/04/19 1143 Prednisone (Prednisone) 20 Mg Tab, 40 MG PO DAILY Prescribed by: RYLAN TERRAZAS on 06/12/20 1722 Salmeterol Xinafoate (Serevent Diskus) 50 Mcg Disk, (Reported) Entered as Reported by: LYN OLVERA on 07/04/19 0949 Theophylline Anhydrous (Theophylline Anhydrous) 300 Mg Tab.er.12h, (Reported) Entered as Reported by: LYN OLVERA on 07/04/19 0949 Review of Systems Review of Systems Constitutional: No chills; dizziness; No fever Respiratory: No cough, No orthopnea, No short of breath Cardiovascular: No chest pain, No palpitations, No syncope Genitourinary: No dysuria; frequency (Chronic for the last 3 years) Musculoskeletal: no symptoms reported Skin: no symptoms reported Psychiatric/Neurological: Denies Headache, Denies Numbness, Denies Tingling Hematologic/Lymphatic: No Symptoms Reported Immunological/Allergic: no symptoms reported Past Tnbekjf-Sjcgyb-Lsyusl Hx Patient Social History Tobacco Use?: No Use of E-Cig and/or Vaping dev: No Substance use?: No Alcohol Use?: No Pt feels they are or have been: No Immunizations Up To Date Influenza Vaccine Up-to-Date: Yes; Up-to-Date Seasonal Allergies Seasonal Allergies: No Past Medical History Surgeries: Yes Section, Gallbladder Respiratory: Yes Asthma Cardiac: Yes Heart Murmur Neurological: No Genitourinary: No Gastrointestinal: No Musculoskeletal: No Endocrine: No HEENT: No Cancer: No Psychosocial: No Integumentary: No Blood Disorders: No Physical Exam Vital Signs Vital Signs - First Documented 12/10/21 05:06 Temp 36.4 Pulse 89 Resp 17 B/P (MAP) 168/59 (95) Pulse Ox 99 O2 Delivery Room Air Capillary Refill : Less Than 3 Seconds Height, Weight, BMI Height: 4'11.00" Weight: 163lbs. oz. 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 Norm as Tested Skin: Normal Color, Warm/Dry Progress/Results/Core Measures Suspected Sepsis SIRS Temperature: Pulse: 89 Respiratory Rate: 17 Laboratory Tests 12/10/21 05:20: White Blood Count 6.4 Blood Pressure 168 /59 Mean: 95 Laboratory Tests 12/10/21 05:20: Creatinine 1.00, Platelet Count 254, Total Bilirubin 0.3 Results/Orders Lab Results Laboratory Tests Test 12/10/21 05:07 12/10/21 05:20 Range/Units Urine Color YELLOW Urine Clarity SL CLOUDY Urine pH 6.0 5-9 Urine Specific [place] <=1.005 1.016-1.022 Urine Protein NEGATIVE NEGATIVE Urine Glucose (UA) NEGATIVE NEGATIVE Urine Ketones NEGATIVE NEGATIVE Urine Nitrite NEGATIVE NEGATIVE Urine Bilirubin NEGATIVE NEGATIVE Urine Urobilinogen 0.2 < = 1.0 MG/DL Urine Leukocyte Esterase 3+ H NEGATIVE Urine RBC (Auto) NEGATIVE NEGATIVE Urine RBC NEG /HPF Urine WBC 10-20 /HPF Urine Squamous Epithelial Cells 2-5 /HPF Urine Renal Epithelial Cells 0-2 /HPF Urine Crystals NONE /LPF Urine Bacteria FEW H /HPF Urine Casts NONE /LPF Urine Mucus NEGATIVE /LPF Urine Culture Indicated YES White Blood Count 6.4 4.3-11.0 10^3/uL Red Blood Count 4.39 3.80-5.11 10^6/uL Hemoglobin 12.6 11.5-16.0 g/dL Hematocrit 39 35-52 % Mean Corpuscular Volume 89 80-99 fL Mean Corpuscular Hemoglobin 29 25-34 pg Mean Corpuscular Hemoglobin Concent 32 32-36 g/dL Red Cell Distribution Width 14.3 10.0-14.5 % Platelet Count 254 130-400 10^3/uL Mean Platelet Volume 9.4 9.0-12.2 fL Immature Granulocyte % (Auto) 1 % Neutrophils (%) (Auto) 53 42-75 % Lymphocytes (%) (Auto) 37 12-44 % Monocytes (%) (Auto) 8 0-12 % Eosinophils (%) (Auto) 1 0-10 % Basophils (%) (Auto) 1 0-10 % Neutrophils # (Auto) 3.4 1.8-7.8 X 10^3 Lymphocytes # (Auto) 2.3 1.0-4.0 X 10^3 Monocytes # (Auto) 0.5 0.0-1.0 X 10^3 Eosinophils # (Auto) 0.1 0.0-0.3 10^3/uL Basophils # (Auto) 0.0 0.0-0.1 10^3/uL Immature Granulocyte # (Auto) 0.0 0.0-0.1 10^3/uL Sodium Level 141 135-145 MMOL/L Potassium Level 4.2 3.6-5.0 MMOL/L Chloride Level 103 98-107 MMOL/L Carbon Dioxide Level 26 21-32 MMOL/L Anion Gap 12 5-14 MMOL/L Blood Urea Nitrogen 12 7-18 MG/DL Creatinine 1.00 0.60-1.30 MG/DL Estimat Glomerular Filtration Rate 56 BUN/Creatinine Ratio 12 Glucose Level 93 70-105 MG/DL Calcium Level 9.2 8.5-10.1 MG/DL Corrected Calcium 9.1 8.5-10.1 MG/DL Magnesium Level 2.2 1.6-2.4 MG/DL Total Bilirubin 0.3 0.1-1.0 MG/DL Aspartate Amino Transf (AST/SGOT) 12 5-34 U/L Alanine Aminotransferase (ALT/SGPT) 8 0-55 U/L Alkaline Phosphatase 140 H 40-136 U/L C-Reactive Protein < 0.30 <0.50 MG/DL Total Protein 6.6 6.4-8.2 GM/DL Albumin 4.1 3.2-4.5 GM/DL My Orders Orders - SHE DEL ANGEL DO Cbc With Automated Diff (12/10/21 05:21) Comprehensive Metabolic Panel (12/10/21 05:21) Magnesium (12/10/21 05:21) Ua Culture If Indicated (12/10/21 05:21) Crp Fs (12/10/21 05:21) Meclizine Tablet (Antivert Tablet) (12/10/21 05:30) Urine Culture (12/10/21 05:07) Medications Given in ED Current Medications Medications Dose Ordered Sig/Camilo Route Start Time Stop Time Status Last Admin Dose Admin Meclizine HCl 25 mg ONCE ONCE PO 12/10/21 05:30 12/10/21 05:31 DC 12/10/21 05:28 25 MG Vital Signs/I&O 12/10/21 12/10/21 05:06 06:25 Temp 36.4 Pulse 89 70 Resp 17 17 B/P (MAP) 168/59 (95) 157/65 Pulse Ox 99 99 O2 Delivery Room Air Room Air Capillary Refill : Less Than 3 Seconds Blood Pressure Mean: 95 Progress Note : Progress Note Patient reports that her symptoms resolved with the meclizine. She does have a history of vertigo and is likely the cause. Patient does not have any significant findings on exam or on her laboratory tests. I recommend that she use meclizine for couple days as needed. If she continues to have symptoms early next week or if they return or get worse that she should follow-up with her primary care provider for further evaluation. Patient does report that she has a cardiology consult to check on a murmur that she has had for quite a while just for a reconsultation. Patient should keep that appointment. Patient stable and discharged Departure Impression Primary Impression: Vertigo Disposition: 01 HOME, SELF-CARE Condition: Stable Departure-Patient Inst. Referrals: SAMANTHA RUTLEDGE MD (PCP/Family) Primary Care Physician Patient Instructions: Vertigo (a Type of Dizziness) (DC) Add. Discharge Instructions: Follow-up with your primary care doctor if symptoms or not better in a few days or return You may use [id number] meclizine/Antivert as directed on package, that is the medication you received here in the ER that helped your symptoms Drink plenty of fluids All discharge instructions reviewed with patient and/or family. Voiced understanding. SHE DEL ANGEL DO Dec 10, 2021 05:21
[2021-12-10] MEDS ORDERED: MECLIZINE 25 MG (ANTIVERT) TAB PO ONE (05:30)
[2021-12-10 05:35] LABS: BILIRUBIN,URINE NEGATIVE (NEGATIVE); CLARITY,URINE SL CLOUDY; COLOR,URINE YELLOW; GLUCOSE, URINE (UA) NEGATIVE (NEGATIVE); KETONES,URINE NEGATIVE (NEGATIVE); LEUKOCYTE ESTERASE ,URINE 3+ (NEGATIVE); NITRITE,URINE NEGATIVE (NEGATIVE); PROTEIN,URINE NEGATIVE (NEGATIVE)
[2021-12-10 05:36] LABS: HEMATOCRIT 39 % (35-52); HEMOGLOBIN 12.6 g/dL (11.5-16.0); MEAN CORPUSCULAR HEMOGLOBIN 29 pg (25-34); MEAN CORPUSCULAR HGB CONC 32 g/dL (32-36); MEAN CORPUSCULAR VOLUME 89 fL (80-99); MEAN PLATELET VOLUME 9.4 fL (9.0-12.2); PLATELET COUNT 254 10^3/uL (130-400); WHITE BLOOD COUNT 6.4 10^3/uL (4.3-11.0)
[2021-12-10 05:37] LABS: BASOPHILS % (AUTO) 1 % (0-10); EOSINOPHILS # (AUTO) 0.1 10^3/uL (0.0-0.3); EOSINOPHILS % (AUTO) 1 % (0-10); LYMPHOCYTES # (AUTO) 2.3 X 10^3 (1.0-4.0); LYMPHOCYTES % (AUTO) 37 % (12-44); MONOCYTES # (AUTO) 0.5 X 10^3 (0.0-1.0); MONOCYTES % (AUTO) 8 % (0-12); NEUTROPHILS # (AUTO) 3.4 X 10^3 (1.8-7.8); NEUTROPHILS % (AUTO) 53 % (42-75)
[2021-12-10 05:54] LABS: BACTERIA,URINE FEW /HPF; RBC,URINE NEG /HPF; RENAL EPITHELIAL CELLS,URINE 0-2 /HPF
[2021-12-10 06:00] LABS: ALANINE AMINOTRANSFERASE 8 U/L (0-55); ALBUMIN 4.1 GM/DL (3.2-4.5); ALKALINE PHOSPHATASE 140 U/L (40-136); BILIRUBIN,TOTAL 0.3 MG/DL (0.1-1.0); BUN/CREATININE RATIO 12; CALCIUM 9.2 MG/DL (8.5-10.1); CARBON DIOXIDE 26 MMOL/L (21-32); CHLORIDE 103 MMOL/L (98-107); GFR ESTIMATED 56; GLUCOSE 93 MG/DL (70-105); MAGNESIUM 2.2 MG/DL (1.6-2.4); POTASSIUM 4.2 MMOL/L (3.6-5.0); SODIUM 141 MMOL/L (135-145); TOTAL PROTEIN 6.6 GM/DL (6.4-8.2)
[2021-12-10 06:25] VITALS: BP 157/65
== END 2021-12-10 06:25 | disposition home or self-care (01) ==
LOC: EDUNIT# 05:01 → ER FS 05:03
DX: R42 Dizziness and giddiness (principal); R01.1 Cardiac murmur, unspecified; J45.909 Unspecified asthma, uncomplicated; Z88.0 Allergy status to penicillin; Z88.2 Allergy status to sulfonamides
CPT/HCPCS: 36415; 80053; 81000; 83735; 85025; 86141; 87088; 99283

== ENCOUNTER 2021-12-28 20:23 | Emergency (ER) | payer MEDICARE ==
[~2021-12-28] VITALS: Ht 149.8 cm; Wt 71.2 kg
[2021-12-28 20:25] VITALS: BP 182/76
--- NOTE | 2021-12-28 20:31 | ED Chest Pain ---
General Stated Complaint: CP,L SHOULDER PAIN History of Present Illness Date Seen by Provider: Dec 28, 2021 Time Seen by Provider: 20:26 Initial Comments 81-year-old female presents with left posterior shoulder and arm pain along with some chest pain. She reports that started around 10 or 11:00 last night. That now her whole or left arm hurts. She denies any injury. She reports it gets worse with movement. She her chest is worse with palpation. She denies any shortness of breath, nausea, vomiting, diaphoresis. She does not have any cough, fever chills Allergies and Home Medications Allergies Coded Allergies: Penicillins (Verified Allergy, Unknown, 07/04/19) Sulfa (Sulfonamide Antibiotics) (Verified Allergy, Unknown, 07/04/19) cholecalciferol (vitamin D3) (Verified Allergy, Unknown, 07/04/19) Patient Home Medication List Home Medication List Reviewed: Yes Diphenoxylate HCl/Atropine (Diphenoxylate-Atrop 2.5-0.025) 1 Each Tablet, (Reported) Entered as Reported by: LYN OLVERA on 07/04/19 0949 Fluticasone Propionate (Flovent Hfa 220 mcg) 1 Ea Aero, (Reported) Entered as Reported by: LYN OLVERA on 07/04/19 0949 Fluticasone Propionate (Fluticasone Propionate) 16 Gm [place].susp, (Reported) Entered as Reported by: LYN OLVERA on 07/04/19 0949 Ibuprofen (Ibuprofen) 600 Mg Tablet, 600 MG PO Q6H PRN for PAIN-MILD Prescribed by: TUCKER CLAROS on 11/05/19 1302 Latanoprost (Latanoprost) 2.5 Ml Drops, (Reported) Entered as Reported by: LYN OLVERA on 07/04/19 0949 Levofloxacin (Levaquin) 500 Mg Tablet, 500 MG PO DAILY Prescribed by: RYLAN TERRAZAS on 06/12/20 1714 Lisinopril (Lisinopril) 20 Mg Tablet, (Reported) Entered as Reported by: LYN OLVERA on 07/04/19 0949 Meclizine HCl (Meclizine HCl) 25 Mg Tab.chew, 25 MG PO Q6H PRN for DIZZINESS Prescribed by: SUSIE DAWSON on 07/04/19 1134 Meclizine HCl (Meclizine HCl) 12.5 Mg Tablet, 12.5 MG PO BID Prescribed by: ANDREY EMERY on 02/03/20 1847 Montelukast Sodium (Montelukast Sodium) 10 Mg Tablet, (Reported) Entered as Reported by: LYN OLVERA on 07/04/19 0949 Nitrofurantoin Monohyd/M-Cryst (Macrobid 100 mg Capsule) 100 Mg Capsule, 1 TAB PO BID Prescribed by: SUSIE DAWSON on 07/04/19 1143 Prednisone (Prednisone) 20 Mg Tab, 40 MG PO DAILY Prescribed by: RYLAN TERRAZAS on 06/12/20 1722 Salmeterol Xinafoate (Serevent Diskus) 50 Mcg Disk, (Reported) Entered as Reported by: LYN OLVERA on 07/04/19 0949 Theophylline Anhydrous (Theophylline Anhydrous) 300 Mg Tab.er.12h, (Reported) Entered as Reported by: LYN OLVERA on 07/04/19 0949 Review of Systems Review of Systems Constitutional: No chills, No dizziness, No fever, No weakness EENTM: No Symptoms Reported Respiratory: Denies Cough, Denies Shortness of Air Cardiovascular: See HPI, Chest Pain Gastrointestinal: Denies Constipated, Denies Nausea, Denies Vomiting Genitourinary: No Symptoms Reported Musculoskeletal: see HPI Skin: no symptoms reported Psychiatric/Neurological: No Symptoms Reported Endocrine: No Symptoms Reported Past Jfxghtk-Heddvx-Xecckt Hx Seasonal Allergies Seasonal Allergies: No Past Medical History Surgeries: Yes Section, Gallbladder Respiratory: Yes Asthma Cardiac: Yes Heart Murmur Neurological: No Genitourinary: No Gastrointestinal: No Musculoskeletal: No Endocrine: No HEENT: No Cancer: No Psychosocial: No Integumentary: No Blood Disorders: No Physical Exam Vital Signs Vital Signs - First Documented 12/28/21 20:25 Temp 36.2 Pulse 83 Resp 15 B/P (MAP) 182/76 (111) Pulse Ox 99 O2 Delivery Room Air Capillary Refill : Height, Weight, BMI Height: 4'11.00" Weight: 163lbs. oz. 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 as Tested Skin: Normal Color, Warm/Dry Progress/Results/Core Measures Results/Orders Lab Results Laboratory Tests Test 12/28/21 20:35 Range/Units White Blood Count 6.4 4.3-11.0 10^3/uL Red Blood Count 4.15 3.80-5.11 10^6/uL Hemoglobin 12.1 11.5-16.0 g/dL Hematocrit 37 35-52 % Mean Corpuscular Volume 89 80-99 fL Mean Corpuscular Hemoglobin 29 25-34 pg Mean Corpuscular Hemoglobin Concent 33 32-36 g/dL Red Cell Distribution Width 14.6 H 10.0-14.5 % Platelet Count 216 130-400 10^3/uL Mean Platelet Volume 9.7 9.0-12.2 fL Immature Granulocyte % (Auto) 0 % Neutrophils (%) (Auto) 56 42-75 % Lymphocytes (%) (Auto) 34 12-44 % Monocytes (%) (Auto) 8 0-12 % Eosinophils (%) (Auto) 2 0-10 % Basophils (%) (Auto) 0 0-10 % Neutrophils # (Auto) 3.6 1.8-7.8 10^3/uL Lymphocytes # (Auto) 2.2 1.0-4.0 10^3/uL Monocytes # (Auto) 0.5 0.0-1.0 10^3/uL Eosinophils # (Auto) 0.1 0.0-0.3 10^3/uL Basophils # (Auto) 0.0 0.0-0.1 10^3/uL Immature Granulocyte # (Auto) 0.0 0.0-0.1 10^3/uL Sodium Level 143 135-145 MMOL/L Potassium Level 3.6 3.6-5.0 MMOL/L Chloride Level 105 98-107 MMOL/L Carbon Dioxide Level 26 21-32 MMOL/L Anion Gap 12 5-14 MMOL/L Blood Urea Nitrogen 8 7-18 MG/DL Creatinine 0.96 0.60-1.30 MG/DL Estimat Glomerular Filtration Rate 59 BUN/Creatinine Ratio 8 Glucose Level 121 H 70-105 MG/DL Calcium Level 9.1 8.5-10.1 MG/DL Corrected Calcium 9.1 8.5-10.1 MG/DL Magnesium Level 2.2 1.6-2.4 MG/DL Total Bilirubin 0.2 0.1-1.0 MG/DL Aspartate Amino Transf (AST/SGOT) 14 5-34 U/L Alanine Aminotransferase (ALT/SGPT) 10 0-55 U/L Alkaline Phosphatase 150 H 40-136 U/L Troponin I < 0.30 <0.30 NG/ML C-Reactive Protein < 0.30 <0.50 MG/DL Total Protein 6.4 6.4-8.2 GM/DL Albumin 4.0 3.2-4.5 GM/DL My Orders Orders - DEL ANGEL,SHE L DO Aspirin Chewable Tablet (Baby Aspirin Ch (12/28/21 20:45) Cbc With Automated Diff (12/28/21 20:32) Comprehensive Metabolic Panel (12/28/21 20:32) Magnesium (12/28/21 20:32) Crp Fs (12/28/21 20:32) Troponin I Fs (12/28/21 20:32) Chest Pa/Lat (2 View) (12/28/21 20:32) Ed Iv/Invasive Line Start (12/28/21 20:32) Ekg Tracing (12/28/21 20:32) Monitor-Rhythm Ecg Trace Only (12/28/21 20:32) Ketorolac Injection (Toradol Injection) (12/28/21 21:08) Medications Given in ED Current Medications Medications Dose Ordered Sig/Camilo Route Start Time Stop Time Status Last Admin Dose Admin Aspirin 324 mg ONCE ONCE PO 12/28/21 20:45 12/28/21 20:46 DC 12/28/21 20:37 324 MG Vital Signs/I&O 12/28/21 12/28/21 20:25 21:15 Temp 36.2 Pulse 83 76 Resp 15 15 B/P (MAP) 182/76 (111) 142/81 Pulse Ox 99 100 O2 Delivery Room Air Room Air Progress Progress Note : Time: 21:21 Progress Note Patient's pain started almost 24 hours ago. She has no acute findings on her EKG. She has a negative troponin and negative labs. She does state that if she turns her head to the left she gets some pain in her neck that shoots down into her back into her shoulders. Discussed with her that her symptoms are very musculoskeletal in nature. I did give her little Toradol IV. Recommend she use some ibuprofen, topical lidocaine. 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 Patient stable and discharged home Initial ECG Impression Date: Dec 28, 2021 Initial ECG Impression Time: 20:21 Initial ECG Rate: 80 Initial ECG Rhythm: Normal Sinus Initial ECG Intervals: Normal Initial ECG Impression: Normal Comment nsr, questionable LVH Diagnostic Imaging Diagonstic Imaging: Xray Plain Films/CT/US/NM/MRI: chest Comments CHEST PA/LAT (2 VIEW) INDICATION: Chest pain EXAMINATION: Chest 12/28/21 COMPARISON: 02/03/2020 Two views of the chest FINDINGS: The cardiomediastinal silhouette is unremarkable. The pulmonary vasculature is within normal limits. The lungs and pleural spaces are clear. IMPRESSION: No evidence of an acute cardiopulmonary process. Reviewed: Reviewed by Me, Reviewed/Discussed Departure Impression Primary Impression: Musculoskeletal pain of left upper extremity Additional Impression: Musculoskeletal chest pain Disposition: 01 HOME, SELF-CARE Condition: Stable Departure-Patient Inst. Referrals: SAMANTHA RUTLEDGE MD (PCP/Family) Primary Care Physician Patient Instructions: Muscle Strain ED, Chest Pain That Is Not Caused by the Heart (DC), Muscle Strain Add. Discharge Instructions: 600 mg ibuprofen every 8 hours as needed for pain 4% topical lidocaine with menthol, cream gel or patch over your left side of your neck upper back and shoulder as needed for pain as directed on package Warm moist heat to to your neck and upper shoulder for 20 minutes 4-5 times daily Follow-up with your primary care provider for recheck of your symptoms in a couple days I would also recommend you call your train system operator to ensure he does not want any further testing. SHE DEL ANGEL DO Dec 28, 2021 20:31
[2021-12-28 20:40] LABS: BASOPHILS % (AUTO) 0 % (0-10); EOSINOPHILS # (AUTO) 0.1 10^3/uL (0.0-0.3); EOSINOPHILS % (AUTO) 2 % (0-10); HEMATOCRIT 37 % (35-52); HEMOGLOBIN 12.1 g/dL (11.5-16.0); LYMPHOCYTES # (AUTO) 2.2 10^3/uL (1.0-4.0); LYMPHOCYTES % (AUTO) 34 % (12-44); MEAN CORPUSCULAR HEMOGLOBIN 29 pg (25-34); MEAN CORPUSCULAR HGB CONC 33 g/dL (32-36); MEAN CORPUSCULAR VOLUME 89 fL (80-99); MEAN PLATELET VOLUME 9.7 fL (9.0-12.2); MONOCYTES # (AUTO) 0.5 10^3/uL (0.0-1.0); MONOCYTES % (AUTO) 8 % (0-12); NEUTROPHILS # (AUTO) 3.6 10^3/uL (1.8-7.8); NEUTROPHILS % (AUTO) 56 % (42-75); PLATELET COUNT 216 10^3/uL (130-400); WHITE BLOOD COUNT 6.4 10^3/uL (4.3-11.0)
[2021-12-28] MEDS ORDERED: ASPIRIN 81 MG CHEW (CHILDREN'S ASA) PO ONE (20:45)
--- NOTE | 2021-12-28 21:02 | Diagnostic Imaging Report ---
INDICATION: Chest pain EXAMINATION: Chest 12/28/21 COMPARISON: 02/03/2020 Two views of the chest FINDINGS: The cardiomediastinal silhouette is unremarkable. The pulmonary vasculature is within normal limits. The lungs and pleural spaces are clear. IMPRESSION: No evidence of an acute cardiopulmonary process. Dictated by: Dictated on workstation # [id number]
[2021-12-28 21:03] LABS: BUN/CREATININE RATIO 8; CALCIUM 9.1 MG/DL (8.5-10.1); CARBON DIOXIDE 26 MMOL/L (21-32); CHLORIDE 105 MMOL/L (98-107); CREATININE SERUM 0.96 MG/DL (0.60-1.30); GFR ESTIMATED 59; GLUCOSE 121 MG/DL (70-105); MAGNESIUM 2.2 MG/DL (1.6-2.4); POTASSIUM 3.6 MMOL/L (3.6-5.0); SODIUM 143 MMOL/L (135-145)
[2021-12-28 21:04] LABS: ALANINE AMINOTRANSFERASE 10 U/L (0-55); ALKALINE PHOSPHATASE 150 U/L (40-136); BILIRUBIN,TOTAL 0.2 MG/DL (0.1-1.0); TOTAL PROTEIN 6.4 GM/DL (6.4-8.2)
[2021-12-28] MEDS ORDERED: KETOROLAC 30 MG/ML VIAL IVP STA (21:08)
== END 2021-12-28 21:30 | disposition home or self-care (01) ==
LOC: EDUNIT# 20:23 → ER FS 20:24
DX: M79.622 Pain in left upper arm (principal); R07.9 Chest pain, unspecified; J45.909 Unspecified asthma, uncomplicated
CPT/HCPCS: 36415; 71046; 80053; 83735; 84484; 85025; 86141; 93005; 93041

== ENCOUNTER 2022-09-23 05:54 | Emergency (ER) | payer MEDICARE ==
--- NOTE | 2022-09-23 06:12 | ED Fall/Injury ---
General Chief Complaint: Trauma-Non Activation Stated Complaint: FALL Nursing Triage Note: Pt tripped and fell at home and was brought to the ED by ems. Pt presents with a right 5th finger laceration. Pt has a skin tear to her left arm and an abrasion to her mid back. Pt complaining of neck pain Source: patient, EMS Exam Limitations: no limitations History of Present Illness Date Seen by Provider: Sep 23, 2022 Time Seen by Provider: 05:57 Initial Comments 82-year-old female coming in after she slipped on a dog pad at home shortly prior to arrival by EMS. Landed backwards hitting her head and caused a laceration to her right pinky finger. Vitals were stable per EMS, GCS 15, she has been ambulatory since the incident. She was able to get up by herself. She is unsure of her last tetanus vaccine. She is having mild, constant, throbbing pain to her right pinky which is better when she does not move it. Otherwise denies any other acute complaints. EMS endorses some skin tears to her left forearm and a scrape to her lower back. Allergies and Home Medications Allergies Coded Allergies: Penicillins (Verified Allergy, Unknown, 07/04/19) Sulfa (Sulfonamide Antibiotics) (Verified Allergy, Unknown, 07/04/19) cholecalciferol (vitamin D3) (Verified Allergy, Unknown, 07/04/19) Patient Home Medication List Home Medication List Reviewed: Yes Clindamycin HCl (Clindamycin HCl) 300 Mg Capsule, 300 MG PO QID Prescribed by: LEENA BRITO on 09/23/22 0655 Diphenoxylate HCl/Atropine (Diphenoxylate-Atrop 2.5-0.025) 1 Each Tablet, (Reported) Entered as Reported by: LYN OLVERA on 07/04/19 0949 Fluticasone Propionate (Flovent Hfa 220 mcg) 1 Ea Aero, (Reported) Entered as Reported by: LYN OLVERA on 07/04/19 0949 Fluticasone Propionate (Fluticasone Propionate) 16 Gm [place].susp, (Reported) Entered as Reported by: LYN OLVERA on 07/04/19 0949 Ibuprofen (Ibuprofen) 600 Mg Tablet, 600 MG PO Q6H PRN for PAIN-MILD Prescribed by: TUCKER CLAROS on 11/05/19 1302 Latanoprost (Latanoprost) 2.5 Ml Drops, (Reported) Entered as Reported by: LYN OLVERA on 07/04/19948 Levofloxacin (Levaquin) 500 Mg Tablet, 500 MG PO DAILY Prescribed by: RYLAN TERRAZAS on 06/12/20 1714 Lisinopril (Lisinopril) 20 Mg Tablet, (Reported) Entered as Reported by: LYN OLVERA on 07/04/19948 Meclizine HCl (Meclizine HCl) 25 Mg Tab.chew, 25 MG PO Q6H PRN for DIZZINESS Prescribed by: SUSIE DAWSON on 07/04/19 1134 Meclizine HCl (Meclizine HCl) 12.5 Mg Tablet, 12.5 MG PO BID Prescribed by: ANDREY EMERY on 02/03/20 1847 Montelukast Sodium (Montelukast Sodium) 10 Mg Tablet, (Reported) Entered as Reported by: LYN OLVERA on 07/04/19948 Nitrofurantoin Monohyd/M-Cryst (Macrobid 100 mg Capsule) 100 Mg Capsule, 1 TAB PO BID Prescribed by: SUSIE DAWSON on 07/04/19 1143 Prednisone (Prednisone) 20 Mg Tab, 40 MG PO DAILY Prescribed by: RYLAN TERRAZAS on 06/12/20 172 Salmeterol Xinafoate (Serevent Diskus) 50 Mcg Disk, (Reported) Entered as Reported by: LYN OLVERA on 07/04/19948 Theophylline Anhydrous (Theophylline Anhydrous) 300 Mg Tab.er.12h, (Reported) Entered as Reported by: LYN OLVERA on 07/04/19948 Review of Systems Review of Systems Constitutional: No fever Eyes: Denies Blurred Vision Ears, Nose, Mouth, Throat: no symptoms reported Respiratory: no symptoms reported Cardiovascular: no symptoms reported Gastrointestinal: no symptoms reported Genitourinary: no symptoms reported Musculoskeletal: see HPI Skin: see HPI Psychiatric/Neurological: No Symptoms Reported All Other Systems Reviewed Negative Unless Noted: Yes Past Ehmsaox-Iuohto-Edbdpo Hx Patient Social History Tobacco Use?: No Use of E-Cig and/or Vaping dev: No Substance use?: No Alcohol Use?: No Pt feels they are or have been: No Seasonal Allergies Seasonal Allergies: No Past Medical History Surgeries: Yes Section, Gallbladder Respiratory: Yes Asthma Cardiac: Yes Heart Murmur Neurological: No Genitourinary: No Gastrointestinal: No Musculoskeletal: No Endocrine: No HEENT: No Cancer: No Psychosocial: No Integumentary: No Blood Disorders: No Physical Exam Vital Signs Vital Signs - First Documented Capillary Refill : Less Than 3 Seconds Height, Weight, BMI Height: 4'11.00" Weight: 163lbs. oz. 73.382080av; 31.00 BMI Method:Stated General Appearance: WD/WN, no apparent distress HEENT: PERRL/EOMI, normal ENT inspection, pharynx normal Neck: non-tender, full range of motion, supple, normal inspection Cardiovascular: regular rate, rhythm, no edema Respiratory: chest non-tender, lungs clear, normal breath sounds, no respiratory distress, no accessory muscle use Gastrointestinal: normal bowel sounds, non tender, soft; No distended, No guarding, No rebound Back: normal inspection, no CVA tenderness Extremities: normal range of motion, no pedal edema, no calf tenderness, normal capillary refill, other (Laceration to the tip of the right pinky finger, normal distal sensation and capillary refill) Neurologic/Psychiatric: heel buffer II-XII nml as tested, no motor/sensory deficits, alert, normal mood/affect, oriented x 3 Skin: normal color, warm/dry, other (Skin tear to left forearm) Lymphatic: no adenopathy Continental Coma Score Best Eye Response: (4) Open Spontaneously Best Verbal Response: (5) Oriented Best Motor Response: (6) Obeys Commands Procedures/Interventions Wound Location: Upper Extremities Other Wound Location right little finger Wound Length (cm): 2.5 Wound's Depth, Shape: superficial, irregular Wound Explored: foreign body removed (multiple pieces of dog hair) Irrigated w/ Saline (ccs): 1000 Betadine Prep?: Yes Anesthesia: 1% Lidocaine Volume Anesthetic (ccs): 4 Wound Debrided: minimal Suture: Ethlion Suture Size: 4-0 Number of Sutures: 6 Progress Digital block was performed after cleaning the area. Full anesthesia was achieved. The area was extensively cleaned, numerous hairs removed to the best of ability. X-ray negative for fracture. Closed with 6 sutures loosely in some areas to allow drainage Progress/Results/Core Measures Results/Orders My Orders Orders - LEENA BRITO MD Ct Head/Cervical Spine Wo (09/23/22 06:02) Chest 1 View Ap/Pa Only (09/23/22 06:02) Finger(S) (09/23/22 06:02) Dipht,Pertuss(Acell),Tet Adult (Boostrix (09/23/22 06:15) Acetaminophen Tablet (Tylenol Tablet) (09/23/22 06:15) Medications Given in ED Current Medications Medications Dose Ordered Sig/Camilo Route Start Time Stop Time Status Last Admin Dose Admin Diphtheria/ Tetanus/Acell Pertussis 0.5 ml ONCE ONCE IM 09/23/22 06:15 09/23/22 06:16 DC 09/23/22 06:14 0.5 ML Vital Signs/I&O 09/23/22 09/23/22 05:58 05:58 Temp 36.5 36.5 Pulse 86 86 Resp 18 18 B/P (MAP) 163/64 (97) 163/64 (97) Pulse Ox 98 98 O2 Delivery Room Air 2 Blood Pressure Mean: 97 Progress Progress Note : Progress Note 82-year-old female with above history coming in after she fell causing laceration to her right finger and some skin tears. ABCs were intact and vitals were stable on presentation. Physical exam with a laceration to her right finger and skin tear to the left forearm. No spinal tenderness, patient ambulatory prior to arrival. CT head and cervical spine negative for acute abnormalities. X-ray of the right little finger negative for fracture. It was cleaned extensively, a lots of dog hair was pulled out of the wound and I discussed with the patient that this is very high risk for infection. It was closed slightly more loose than typical because of this. We will start her on antibiotics, allergic to penicillin and sulfa, so we will trial clindamycin. Tetanus updated today. Patient offered Tylenol but refused. I believe she stable for discharge with outpatient follow-up. She was sent home with strict return precautions. Diagnostic Imaging Diagonstic Imaging: Xray (chest, right little finger), CT (head and c spine) Comments NAME: MARITZA JOHNSON Brenda [facility] REC#: [id number] PT STATUS: REG ER : 1939 PHYSICIAN: LEENA BRITO MD ADMIT DATE: 09/23/22/ER FS Draft Date of Exam:09/23/22 CT HEAD/CERVICAL SPINE WO PROCEDURE: CT head and CT cervical spine without contrast. TECHNIQUE: Multiple contiguous axial images were obtained through the brain and cervical spine without the use of intravenous contrast. Sagittal and coronal reformations through the cervical spine were then performed. Auto Exposure Controls were utilized during the CT exam to meet ALARA standards for radiation dose reduction. INDICATION: Fall, head and neck pain, COMPARED: 06/12/2020. HEAD: There is no intracranial hemorrhage, hydrocephalus, edema, mass, mass effect, nor evidence for an elevation of the intracranial pressures. There are no abnormal extra-axial collections. Basilar cisterns patent. There is no sulcal effacement. There is membrane thickening of the maxillary sinuses chronic. No air-fluid level. CERVICAL SPINE: Degenerative changes to the discs, endplates and facets but no substantial canal stenosis. No cervical fracture or paravertebral hemorrhage. Incidental incomplete fusion of the C1 ring posteriorly noted as a variant. Hyoid and structures of the larynx and thyroid cartilage showed no traumatic deformity, no fluid collection or hemorrhage. IMPRESSION: No hemorrhage or fracture or acute abnormalities identified at CT head and cervical spine. Dictated on workstation # [id number] Dict: 09/23/2228 Trans: 09/23/22 0643 [facility] [id number] Interpreted by: RONAL ARIAS Electronically signed by: Departure Impression Primary Impression: Fall Qualified Codes: W19.XXXA - Unspecified fall, initial encounter Additional Impressions: Skin tear Finger laceration Qualified Codes: S61.226A - Laceration with foreign body of right little finger without damage to nail, initial encounter Disposition: 01 HOME, SELF-CARE Condition: Stable Departure-Patient Inst. Decision time for Depature: 06:53 Referrals: SAMANTHA RUTLEDGE MD (PCP/Family) Primary Care Physician Patient Instructions: Laceration Repair With Stitches ED Add. Discharge Instructions: The wound on your right finger will be high risk for infection because of the dog hair that was in it. We tried her hardest to get all of it out, but it is always possible there is a small piece left. You will be on antibiotics for the next week. Get the stitches out in the next 10 to 14 days depending on how it looks. Change the dressing on it daily for the next 5 days at least to try to keep it clean. Do not allow it to be submerged in any type of water. After 24 hours, water can run over the wound briefly but do not scrub it. Scripts Clindamycin HCl (Clindamycin HCl) 300 Mg Capsule 300 MG PO QID for 7 Days, #28 CAP Prov: LEENA BRITO MD 09/23/22 LEENA BRITO MD Sep 23, 2022 06:12
[2022-09-23] MEDS: ACETAMINOPHEN 500 MG TAB (TYLENOL) PO ONE ×2 (06:13→06:24)
[2022-09-23] MEDS ORDERED: TETANUS,DIPTH,PERTUSS P/F (BOOSTRIX) 0.5 ML VIAL IM ONE (06:15)
--- NOTE | 2022-09-23 06:44 | Diagnostic Imaging Report ---
PROCEDURE: CT head and CT cervical spine without contrast. TECHNIQUE: Multiple contiguous axial images were obtained through the brain and cervical spine without the use of intravenous contrast. Sagittal and coronal reformations through the cervical spine were then performed. Auto Exposure Controls were utilized during the CT exam to meet ALARA standards for radiation dose reduction. INDICATION: Fall, head and neck pain, COMPARED: 06/12/2020. HEAD: There is no intracranial hemorrhage, hydrocephalus, edema, mass, mass effect, nor evidence for an elevation of the intracranial pressures. There are no abnormal extra-axial collections. Basilar cisterns patent. There is no sulcal effacement. There is membrane thickening of the maxillary sinuses chronic. No air-fluid level. CERVICAL SPINE: Degenerative changes to the discs, endplates and facets but no substantial canal stenosis. No cervical fracture or paravertebral hemorrhage. Incidental incomplete fusion of the C1 ring posteriorly noted as a variant. Hyoid and structures of the larynx and thyroid cartilage showed no traumatic deformity, no fluid collection or hemorrhage. IMPRESSION: No hemorrhage or fracture or acute abnormalities identified at CT head and cervical spine. Dictated by: Dictated on workstation # [id number]
[2022-09-23 06:55] VITALS: BP 163/64
[2022-09-23] MEDS ORDERED: CLIN-144 PO (06:55)
--- NOTE | 2022-09-23 08:12 | Diagnostic Imaging Report ---
Indication: Pain. Findings: 3 view 5th finger performed. There are severe arthritic changes to the distal greater than proximal interphalangeal joint with marked soft tissue irregularity involving the palmar aspect of the distal phalanx. No retained opaque foreign body and no fracture. Impression: Soft tissue injury and severe arthritis. No fracture or retained opaque foreign body however. Dictated by: Dictated on workstation # [id number]
--- NOTE | 2022-09-23 08:12 | Diagnostic Imaging Report ---
INDICATION: Trauma with chest pain and neck pain. Frontal chest obtained at 6:04 a.m. and compared to 12/28/2021. Heart and mediastinal silhouette are normal in appearance. There is prosthetic aortic valve which is new compared to the prior study. There is no focal infiltrate or pneumothorax or pleural fluid. IMPRESSION: No acute process in the chest. Evidence of previous aortic valve replacement. Dictated by: Dictated on workstation # [id number]
== END 2022-09-23 06:57 | disposition home or self-care (01) ==
LOC: EDUNIT# 05:54 → ER FS 05:58
DX: S61.226A Laceration with foreign body of right little finger without damage to nail, initial encounter (principal); S51.812A Laceration without foreign body of left forearm, initial encounter; Z23 Encounter for immunization; Z28.310 Unvaccinated for COVID-19; Z88.2 Allergy status to sulfonamides; Z88.0 Allergy status to penicillin; W01.10XA Fall on same level from slipping, tripping and stumbling with subsequent striking against unspecified object, initial encounter; Y92.009 Unspecified place in unspecified non-institutional (private) residence as the place of occurrence of the external cause
CPT/HCPCS: 70450; 71045; 72125; 73140; 90715

== ENCOUNTER 2022-10-03 10:03 | Emergency (ER) | payer MEDICARE ==
[~2022-10-03 10:03] MED LIST changes: +CLIN-144 PO
[2022-10-03 10:13] LABS: BASOPHILS % (AUTO) 0 % (0-10); EOSINOPHILS % (AUTO) 0 % (0-10); HEMATOCRIT 30 % (35-52); HEMOGLOBIN 10.8 g/dL (11.5-16.0); LYMPHOCYTES # (AUTO) 0.6 10^3/uL (1.0-4.0); LYMPHOCYTES % (AUTO) 5 % (12-44); MEAN CORPUSCULAR HEMOGLOBIN 29 pg (25-34); MEAN CORPUSCULAR HGB CONC 36 g/dL (32-36); MEAN CORPUSCULAR VOLUME 80 fL (80-99); MEAN PLATELET VOLUME 9.5 fL (9.0-12.2); MONOCYTES # (AUTO) 0.6 10^3/uL (0.0-1.0); MONOCYTES % (AUTO) 5 % (0-12); NEUTROPHILS # (AUTO) 10.5 10^3/uL (1.8-7.8); NEUTROPHILS % (AUTO) 89 % (42-75); PLATELET COUNT 247 10^3/uL (130-400); WHITE BLOOD COUNT 11.8 10^3/uL (4.3-11.0)
--- NOTE | 2022-10-03 10:20 | ED General ---
General Chief Complaint: General Problems/Pain Stated Complaint: FALL; GEN WEAKNESS Source of Information: Patient, EMS, Family Exam Limitations: No Limitations History of Present Illness Date Seen by Provider: Oct 03, 2022 Time Seen by Provider: 10:04 Initial Comments 82yoF with PMH most notable for HTN and asthma coming in due to confusion. She endorses dysuria and urinary frequency since she is unsure when. She slipped out of her bed and fell earlier today and that is why EMS was called. Last tetanus given 10 days ago when she was in the ER after she had slipped on a dog pad requiring stitches to her finger. She is denying any pain anywhere at this time including any chest pain. Denies any shortness of breath, cough, fever, abdominal pain, nausea, vomiting, diarrhea, focal weakness or numbness, or any other concerns. Her son comes by later in as to the history. He states she is slowly become more confused over the weekend and went to [facility] on Monday. Was little bit better at that time so was sent home. He states she has not really been eating and drinking as much as usual, does not like water. She had diarrhea that was nonbloody yesterday he mentioned. Allergies and Home Medications Allergies Coded Allergies: Penicillins (Verified Allergy, Unknown, 07/04/19) Sulfa (Sulfonamide Antibiotics) (Verified Allergy, Unknown, 07/04/19) cholecalciferol (vitamin D3) (Verified Allergy, Unknown, 07/04/19) Patient Home Medication List Home Medication List Reviewed: Yes Clindamycin HCl (Clindamycin HCl) 300 Mg Capsule, 300 MG PO QID Prescribed by: LEENA BRITO on 09/23/22 0655 Diphenoxylate HCl/Atropine (Diphenoxylate-Atrop 2.5-0.025) 1 Each Tablet, (Reported) Entered as Reported by: LYN OLVERA on 07/04/19 0949 Fluticasone Propionate (Flovent Hfa 220 mcg) 1 Ea Aero, (Reported) Entered as Reported by: LYN OLVERA on 07/04/19 0949 Fluticasone Propionate (Fluticasone Propionate) 16 Gm [place].susp, (Reported) Entered as Reported by: LYN OLVERA on 07/04/19 09 Ibuprofen (Ibuprofen) 600 Mg Tablet, 600 MG PO Q6H PRN for PAIN-MILD Prescribed by: TUCKER CLAROS on 11/05/19 1302 Latanoprost (Latanoprost) 2.5 Ml Drops, (Reported) Entered as Reported by: LYN OLVERA on 07/04/19948 Levofloxacin (Levaquin) 500 Mg Tablet, 500 MG PO DAILY Prescribed by: RYLAN TERRAZAS on 06/12/20 1714 Lisinopril (Lisinopril) 20 Mg Tablet, (Reported) Entered as Reported by: LYN OLVERA on 07/04/19948 Meclizine HCl (Meclizine HCl) 25 Mg Tab.chew, 25 MG PO Q6H PRN for DIZZINESS Prescribed by: SUSIE DAWSON on 07/04/19 1134 Meclizine HCl (Meclizine HCl) 12.5 Mg Tablet, 12.5 MG PO BID Prescribed by: ANDREY EMERY on 02/03/20 1847 Montelukast Sodium (Montelukast Sodium) 10 Mg Tablet, (Reported) Entered as Reported by: LYN OLVERA on 07/04/19948 Nitrofurantoin Monohyd/M-Cryst (Macrobid 100 mg Capsule) 100 Mg Capsule, 1 TAB PO BID Prescribed by: SUSIE DAWSON on 07/04/19 1143 Prednisone (Prednisone) 20 Mg Tab, 40 MG PO DAILY Prescribed by: RYLAN TERRAZAS on 06/12/20 1722 Salmeterol Xinafoate (Serevent Diskus) 50 Mcg Disk, (Reported) Entered as Reported by: LYN OLVERA on 07/04/19948 Theophylline Anhydrous (Theophylline Anhydrous) 300 Mg Tab.er.12h, (Reported) Entered as Reported by: LYN OLVERA on 07/04/19948 Review of Systems Review of Systems Constitutional: No fever EENTM: no symptoms reported Respiratory: no symptoms reported Cardiovascular: no symptoms reported Gastrointestinal: no symptoms reported Genitourinary: see HPI Musculoskeletal: see HPI Skin: no symptoms reported Psychiatric/Neurological: No Symptoms Reported Hematologic/Lymphatic: No Symptoms Reported Immunological/Allergic: no symptoms reported All Other Systems Reviewed Negative Unless Noted: Yes Past Mlmkenk-Hsvdej-Cfwwya Hx Patient Social History Tobacco Use?: No Use of E-Cig and/or Vaping dev: No Substance use?: No Alcohol Use?: No Seasonal Allergies Seasonal Allergies: No Past Medical History Surgeries: Yes Section, Gallbladder Respiratory: Yes Asthma Cardiac: Yes Heart Murmur Neurological: No Genitourinary: No Gastrointestinal: No Musculoskeletal: No Endocrine: No HEENT: No Cancer: No Psychosocial: No Integumentary: No Blood Disorders: No Physical Exam Vital Signs Vital Signs - First Documented 10/03/22 10:15 Temp 35.4 Pulse 72 Resp 18 B/P (MAP) 131/50 (77) Pulse Ox 100 O2 Delivery Room Air Capillary Refill : Height, Weight, BMI Height: 4'11.00" Weight: 163lbs. oz. [id number]; 31.00 BMI Method:Stated General Appearance: No Apparent Distress, WD/WN Eyes: Bilateral Eye Normal Inspection HEENT: PERRL/EOMI, Normal ENT Inspection, Pharynx Normal Neck: Full Range of Motion, Normal Inspection, Non Tender, Supple Respiratory: Chest Non Tender, Lungs Clear, Normal Breath Sounds, No Accessory Muscle Use, No Respiratory Distress Cardiovascular: Regular Rate, Rhythm, No Edema, Normal Peripheral Pulses Gastrointestinal: Normal Bowel Sounds, Non Tender, Soft; No Distended, No Guarding Back: Normal Inspection, No CVA Tenderness, No Vertebral Tenderness Extremity: Normal Capillary Refill, Normal Inspection, Normal Range of Motion, Non Tender, No Calf Tenderness, No Pedal Edema Neurologic/Psychiatric: Alert, No Motor/Sensory Deficits, Normal Mood/Affect, Other (Oriented to self and year, unsure of location and exact situation surrounding her being here) Skin: Normal Color, Warm/Dry Lymphatic: No Adenopathy Procedures/Interventions Suture Size: 4-0 Progress/Results/Core Measures Suspected Sepsis SIRS Temperature: Pulse: Respiratory Rate: Laboratory Tests 10/03/22 10:06: White Blood Count 11.8H Blood Pressure / Mean: Laboratory Tests 10/03/22 10:06: Creatinine 1.04, INR Comment 1.0, Platelet Count 247, Total Bilirubin 0.4 Results/Orders Lab Results Laboratory Tests Test 10/03/22 10:06 10/03/22 10:22 Range/Units White Blood Count 11.8 H 4.3-11.0 10^3/uL Red Blood Count 3.76 L 3.80-5.11 10^6/uL Hemoglobin 10.8 L 11.5-16.0 g/dL Hematocrit 30 L 35-52 % Mean Corpuscular Volume 80 80-99 fL Mean Corpuscular Hemoglobin 29 25-34 pg Mean Corpuscular Hemoglobin Concent 36 32-36 g/dL Red Cell Distribution Width 12.3 10.0-14.5 % Platelet Count 247 130-400 10^3/uL Mean Platelet Volume 9.5 9.0-12.2 fL Immature Granulocyte % (Auto) 0 % Neutrophils (%) (Auto) 89 H 42-75 % Lymphocytes (%) (Auto) 5 L 12-44 % Monocytes (%) (Auto) 5 0-12 % Eosinophils (%) (Auto) 0 0-10 % Basophils (%) (Auto) 0 0-10 % Neutrophils # (Auto) 10.5 H 1.8-7.8 10^3/uL Lymphocytes # (Auto) 0.6 L 1.0-4.0 10^3/uL Monocytes # (Auto) 0.6 0.0-1.0 10^3/uL Eosinophils # (Auto) 0.0 0.0-0.3 10^3/uL Basophils # (Auto) 0.0 0.0-0.1 10^3/uL Immature Granulocyte # (Auto) 0.0 0.0-0.1 10^3/uL Neutrophils % (Manual) 90 % Lymphocytes % (Manual) 5 % Monocytes % (Manual) 4 % Eosinophils % (Manual) 0 % Basophils % (Manual) 0 % Band Neutrophils 1 % Prothrombin Time 13.7 12.2-14.7 SEC INR Comment 1.0 0.8-1.4 Activated Partial Thromboplast Time 25 24-35 SEC Sodium Level 114 *L 135-145 MMOL/L Potassium Level 4.8 3.6-5.0 MMOL/L Chloride Level 80 L 98-107 MMOL/L Carbon Dioxide Level 21 21-32 MMOL/L Anion Gap 13 5-14 MMOL/L Blood Urea Nitrogen 13 7-18 MG/DL Creatinine 1.04 0.60-1.30 MG/DL Estimat Glomerular Filtration Rate 53 BUN/Creatinine Ratio 13 Glucose Level 128 H 70-105 MG/DL Calcium Level 8.7 8.5-10.1 MG/DL Corrected Calcium 8.9 8.5-10.1 MG/DL Magnesium Level 1.7 1.6-2.4 MG/DL Total Bilirubin 0.4 0.1-1.0 MG/DL Aspartate Amino Transf (AST/SGOT) 20 5-34 U/L Alanine Aminotransferase (ALT/SGPT) 10 0-55 U/L Alkaline Phosphatase 154 H 40-136 U/L Troponin I < 0.30 <0.30 NG/ML Total Protein 6.2 L 6.4-8.2 GM/DL Albumin 3.7 3.2-4.5 GM/DL Lipase 139 H 8-78 U/L Urine Color YELLOW Urine Clarity SL CLOUDY Urine pH 5.5 5-9 Urine Specific [place] 1.025 H 1.016-1.022 Urine Protein NEGATIVE NEGATIVE Urine Glucose (UA) NEGATIVE NEGATIVE Urine Ketones 1+ H NEGATIVE Urine Nitrite NEGATIVE NEGATIVE Urine Bilirubin NEGATIVE NEGATIVE Urine Urobilinogen 0.2 < = 1.0 MG/DL Urine Leukocyte Esterase NEGATIVE NEGATIVE Urine RBC (Auto) TRACE-I H NEGATIVE Urine RBC NONE /HPF Urine WBC RARE /HPF Urine Squamous Epithelial Cells 0-2 /HPF Urine Crystals NONE /LPF Urine Bacteria NEGATIVE /HPF Urine Casts PRESENT /LPF Urine Hyaline Casts 0-2 H /LPF Urine Mucus SMALL H /LPF Urine Culture Indicated NO My Orders Orders - LEENA BRITO MD Cbc With Automated Diff (10/03/22 10:08) Comprehensive Metabolic Panel (10/03/22 10:08) Lipase (10/03/22 10:08) Magnesium (10/03/22 10:08) Protime With Inr (10/03/22 10:08) Partial Thromboplastin Time (10/03/22 10:08) Ua Culture If Indicated (10/03/22 10:08) Troponin I Fs (10/03/22 10:08) Ct Head Wo (10/03/22 10:08) Chest 1 View Ap/Pa Only (10/03/22 10:08) Straight Cath (Urinary) (10/03/22 10:14) Manual Differential (10/03/22 10:06) Ct Abdomen/Pelvis Wo (10/03/22 10:35) Vital Signs/I&O 10/03/22 10:15 Temp 35.4 Pulse 72 Resp 18 B/P (MAP) 131/50 (77) Pulse Ox 100 O2 Delivery Room Air Capillary Refill : Progress Note : Progress Note 82-year-old female with above history coming in due to confusion and slipping out of her bed. ABCs were intact and vitals were stable on presentation. Physical exam with some lower abdominal discomfort but no signs of peritonitis. Neuro exam with nonfocal findings, general weakness. Mildly confused and disoriented. Labs significant for hyponatremia to 114. Urinalysis with no evidence of infection on straight cath. Chest x-ray clear with no signs of acute findings. CT head, abdomen, pelvis ordered and are negative for acute findings. Contacted Dr. Hancock who will admit the patient to [facility] given her age and likely need for geriatric care as well. Diagnostic Imaging Diagonstic Imaging: Xray (chest), CT (head/abd/pelvis without) Comments NAME: ALEXMARITZA E [facility] REC#: [id number] PT STATUS: REG ER : 1940 PHYSICIAN: LEENA BRITO MD ADMIT DATE: 10/03/22/ER FS Draft Date of Exam:10/03/22 CHEST 1 VIEW AP/PA ONLY INDICATION: Fall. TIME OF EXAM: 10:31 a.m. COMPARISON: Comparison is made with prior chest from 09/23/2022. FINDINGS: The heart is enlarged. 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 Lungs are clear. No infiltrates are detected. There is no evidence of failure. No effusion or pneumothorax is identified. Calcified lymph nodes in the right hilum are noted. IMPRESSION: Cardiomegaly. No acute abnormality is detected. Dictated on workstation # [id number] Dict: 10/03/22 1047 Trans: 10/03/22 1056 [id number] Interpreted by: ABILIO NEVAREZ MD Electronically signed by: NAME: MARITZA JOHNSON Brenda [facility] REC#: [id number] PT STATUS: REG ER : 1940 PHYSICIAN: LEENA BRITO MD ADMIT DATE: 10/03/22/ER FS Draft Date of Exam:10/03/22 CT ABDOMEN/PELVIS WO EXAMINATION: CT abdomen and pelvis without contrast. TECHNIQUE: Multiple contiguous axial images were obtained through the abdomen and pelvis without the use of intravenous contrast. All CT scans use one or more of the following dose optimizing techniques: automated exposure control, MA and/or KvP adjustment based on patient size and exam type or iterative reconstruction. HISTORY: Abdominal pain. COMPARISON: None available. FINDINGS: Limited views of the lower thorax are unremarkable. The liver is normal without focal lesion. There is no biliary ductal dilation. The gallbladder is absent. Pancreas is normal. Spleen is normal. Adrenal glands are normal. The kidneys are normal. There is no hydronephrosis. Urinary bladder is normal. Bowel is normal in caliber without obstruction or inflammation. No free fluid or air. No abdominal or pelvic lymphadenopathy. Aorta is normal in caliber without aneurysm. There are no suspicious osseus lesions. IMPRESSION: No acute abnormality in the abdomen or pelvis. Dictated on workstation # [id number] Dict: 10/03/22 1055 Trans: 10/03/22 1100 [id number] Interpreted by: KENYA ARANGO MD Electronically signed by: [facility] [place] NAME: MARITZA JOHNSON [facility] REC#: [id number] PT STATUS: REG ER : 1940 PHYSICIAN: LEENA BRITO MD ADMIT DATE: 10/03/22/ER FS Draft Date of Exam:10/03/22 CT HEAD WO INDICATION: Fall, altered mental status. TECHNIQUE: Routine noncontrast enhanced axial images were obtained from the skull base to the vertex. Auto Exposure Controls were utilized during the CT exam to meet ALARA standards for radiation dose reduction COMPARISON: 09/23/2022. FINDINGS: The ventricles and cortical sulci are diffusely prominent, compatible with age-related volume loss. There are confluent areas of abnormal, low attenuation in the periventricular white matter. This is consistent with chronic small vessel ischemic changes. There is no midline shift or mass-effect. No acute intra-axial hemorrhage is seen. There are no abnormal areas of increased or decreased density to suggest acute hemorrhage or edema. No extra-axial masses or collections are present. The bony calvarium is intact. The visualized paranasal sinuses show mild scattered mucosal thickening. The mastoid air cells are clear. IMPRESSION: 1. No acute intracranial abnormality. No CT evidence of mass, acute infarct or intracranial hemorrhage. 2. Chronic small vessel ischemic changes in the deep white matter. Dictated on workstation # [id number] Dict: 10/03/22 1034 Trans: 10/03/22 1040 [id number] Interpreted by: SHINE PARRA MD Electronically signed by: Departure Impression Primary Impression: Hyponatremia Disposition: XFER SHT-TRM HOSP Condition: Stable Admissions Decision to Admit/Date: Oct 03, 2022 Transfer Transfer Reason: Patient preference (patient would benefit from geriatric psych as well) Time Spoke to Accepting Phy: 10:50 Transfer Time: 11:00 Transfer Facility: [facility] [place] Method of Transfer: EMS Departure-Patient Inst. Referrals: SAMANTHA RUTLEDGE MD (PCP/Family) Primary Care Physician LEENA BRITO MD Oct 03, 2022 10:20
[2022-10-03 10:26] LABS: BILIRUBIN,URINE NEGATIVE (NEGATIVE); CLARITY,URINE SL CLOUDY; COLOR,URINE YELLOW; GLUCOSE, URINE (UA) NEGATIVE (NEGATIVE); KETONES,URINE 1+ (NEGATIVE); LEUKOCYTE ESTERASE ,URINE NEGATIVE (NEGATIVE); NITRITE,URINE NEGATIVE (NEGATIVE); PH,URINE 5.5 (5-9); PROTEIN,URINE NEGATIVE (NEGATIVE)
[2022-10-03 10:34] LABS: PROTHROMBIN TIME PATIENT 13.7 SEC (12.2-14.7)
[2022-10-03 10:35] LABS: BACTERIA,URINE NEGATIVE /HPF; HYALINE CASTS, URINE 0-2 /LPF; SQUAMOUS EPITHELIAL CELL,UR 0-2 /HPF; WBC,URINE RARE /HPF
[2022-10-03 10:38] LABS: ALANINE AMINOTRANSFERASE 10 U/L (0-55); ALKALINE PHOSPHATASE 154 U/L (40-136); BILIRUBIN,TOTAL 0.4 MG/DL (0.1-1.0); BUN/CREATININE RATIO 13; CALCIUM 8.7 MG/DL (8.5-10.1); CARBON DIOXIDE 21 MMOL/L (21-32); CHLORIDE 80 MMOL/L (98-107); CREATININE SERUM 1.04 MG/DL (0.60-1.30); GFR ESTIMATED 53; GLUCOSE 128 MG/DL (70-105); MAGNESIUM 1.7 MG/DL (1.6-2.4); POTASSIUM 4.8 MMOL/L (3.6-5.0); SODIUM 114 MMOL/L (135-145)
[2022-10-03 10:39] LABS: ALBUMIN 3.7 GM/DL (3.2-4.5); LIPASE 139 U/L (8-78); TOTAL PROTEIN 6.2 GM/DL (6.4-8.2)
--- NOTE | 2022-10-03 10:41 | Diagnostic Imaging Report ---
INDICATION: Fall, altered mental status. TECHNIQUE: Routine noncontrast enhanced axial images were obtained from the skull base to the vertex. Auto Exposure Controls were utilized during the CT exam to meet ALARA standards for radiation dose reduction COMPARISON: 09/23/2022. FINDINGS: The ventricles and cortical sulci are diffusely prominent, compatible with age-related volume loss. There are confluent areas of abnormal, low attenuation in the periventricular white matter. This is consistent with chronic small vessel ischemic changes. There is no midline shift or mass-effect. No acute intra-axial hemorrhage is seen. There are no abnormal areas of increased or decreased density to suggest acute hemorrhage or edema. No extra-axial masses or collections are present. The bony calvarium is intact. The visualized paranasal sinuses show mild scattered mucosal thickening. The mastoid air cells are clear. IMPRESSION: 1. No acute intracranial abnormality. No CT evidence of mass, acute infarct or intracranial hemorrhage. 2. Chronic small vessel ischemic changes in the deep white matter. Dictated by: Dictated on workstation # [id number]
[2022-10-03 10:47] LABS: BAND NEUTROPHILS 1 %; BASOPHILS % (MANUAL) 0 %; EOSINOPHILS % (MANUAL) 0 %; LYMPHOCYTES % (MANUAL) 5 %; MONOCYTES % (MANUAL) 4 %; NEUTROPHILS % (MANUAL) 90 %
--- NOTE | 2022-10-03 10:56 | Diagnostic Imaging Report ---
INDICATION: Fall. TIME OF EXAM: 10:31 a.m. COMPARISON: Comparison is made with prior chest from 09/23/2022. FINDINGS: The heart is enlarged. 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 Lungs are clear. No infiltrates are detected. There is no evidence of failure. No effusion or pneumothorax is identified. Calcified lymph nodes in the right hilum are noted. IMPRESSION: Cardiomegaly. No acute abnormality is detected. Dictated by: Dictated on workstation # [id number]
--- NOTE | 2022-10-03 11:00 | Diagnostic Imaging Report ---
EXAMINATION: CT abdomen and pelvis without contrast. TECHNIQUE: Multiple contiguous axial images were obtained through the abdomen and pelvis without the use of intravenous contrast. All CT scans use one or more of the following dose optimizing techniques: automated exposure control, MA and/or KvP adjustment based on patient size and exam type or iterative reconstruction. HISTORY: Abdominal pain. COMPARISON: None available. FINDINGS: Limited views of the lower thorax are unremarkable. The liver is normal without focal lesion. There is no biliary ductal dilation. The gallbladder is absent. Pancreas is normal. Spleen is normal. Adrenal glands are normal. The kidneys are normal. There is no hydronephrosis. Urinary bladder is normal. Bowel is normal in caliber without obstruction or inflammation. No free fluid or air. No abdominal or pelvic lymphadenopathy. Aorta is normal in caliber without aneurysm. There are no suspicious osseus lesions. IMPRESSION: No acute abnormality in the abdomen or pelvis. Dictated by: Dictated on workstation # [id number]
[2022-10-03 11:31] VITALS: BP 155/84
== END 2022-10-03 12:26 | disposition short-term general hospital (02) ==
LOC: EDUNIT# 10:03 → ER FS 10:04
DX: E87.1 Hypo-osmolality and hyponatremia (principal); R10.30 Lower abdominal pain, unspecified; Z28.310 Unvaccinated for COVID-19
CPT/HCPCS: 36415; 51701; 70450; 71045; 74176; 80053; 81000; 83690; 83735; 84484; 85007; 85027; 85610; 85730

== ENCOUNTER 2022-10-29 10:10 | Emergency (ER) | payer MEDICARE ==
[2022-10-29] MEDS ORDERED: MECLIZINE 25 MG (ANTIVERT) TAB PO STA (10:24)
[2022-10-29] MEDS ORDERED: NS IV 500 ML 500 ML IV STA (10:24)
[2022-10-29] MEDS ORDERED: ONDANSETRON 4 MG/2 ML (SDV) Z0FRAN IVP STA (10:24)
[2022-10-29 10:27] LABS: BASOPHILS % (AUTO) 0 % (0-10); EOSINOPHILS # (AUTO) 0.3 10^3/uL (0.0-0.3); EOSINOPHILS % (AUTO) 7 % (0-10); HEMATOCRIT 36 % (35-52); HEMOGLOBIN 11.7 g/dL (11.5-16.0); LYMPHOCYTES # (AUTO) 1.6 10^3/uL (1.0-4.0); LYMPHOCYTES % (AUTO) 33 % (12-44); MEAN CORPUSCULAR HEMOGLOBIN 28 pg (25-34); MEAN CORPUSCULAR HGB CONC 33 g/dL (32-36); MEAN CORPUSCULAR VOLUME 86 fL (80-99); MEAN PLATELET VOLUME 9.1 fL (9.0-12.2); MONOCYTES # (AUTO) 0.4 10^3/uL (0.0-1.0); MONOCYTES % (AUTO) 7 % (0-12); NEUTROPHILS # (AUTO) 2.5 10^3/uL (1.8-7.8); NEUTROPHILS % (AUTO) 52 % (42-75); PLATELET COUNT 286 10^3/uL (130-400); WHITE BLOOD COUNT 4.9 10^3/uL (4.3-11.0)
[2022-10-29 10:35] LABS: BILIRUBIN,URINE NEGATIVE (NEGATIVE); COLOR,URINE YELLOW; GLUCOSE, URINE (UA) NEGATIVE (NEGATIVE); KETONES,URINE NEGATIVE (NEGATIVE); LEUKOCYTE ESTERASE ,URINE 3+ (NEGATIVE); NITRITE,URINE NEGATIVE (NEGATIVE); PROTEIN,URINE NEGATIVE (NEGATIVE)
--- NOTE | 2022-10-29 10:36 | ED General ---
General Chief Complaint: Dizziness/Syncope Stated Complaint: DIZZINESS Source of Information: Patient, Family (son) History of Present Illness Date Seen by Provider: Oct 29, 2022 Time Seen by Provider: 10:12 Initial Comments 82-year-old female presenting with concern for being dizzy. She states that she has been dizzy since she got up this morning. She has had some nausea but no vomiting. She has had some pressure behind her eyes. She was worried that she might pass out. After she made her breakfast her son brought her to the emergency department. She has not taken any of her medications yet for today. She did have hyponatremia and was admitted to the hospital in [place] in September. She is now concerned that she may still have a low sodium and wants that checked. She also wanted to have her kidneys looked. She denies falling or any trauma or hitting her head. Timing/Duration: 1-3 Hours Severity: Moderate Modifying Factors: worse with Movement Associated Systoms: No Chest Pain, No Diaphoresis, No Fever/Chills; Headaches (pressure behind eyes), Loss of Appetite, Nausea/Vomiting (nausea but no emesis); No Rash, No Seizure, No Shortness of Air, No Syncope; Weakness Allergies and Home Medications Allergies Coded Allergies: Penicillins (Verified Allergy, Unknown, 07/04/19) Sulfa (Sulfonamide Antibiotics) (Verified Allergy, Unknown, 07/04/19) cholecalciferol (vitamin D3) (Verified Allergy, Unknown, 07/04/19) Patient Home Medication List Home Medication List Reviewed: Yes Ciprofloxacin HCl (Ciprofloxacin HCl) 250 Mg Tablet, 250 MG PO BID Prescribed by: ANA MARÍA WINKLER on 10/29/22 1125 Clindamycin HCl (Clindamycin HCl) 300 Mg Capsule, 300 MG PO QID Prescribed by: LEENA BRITO on 09/23/22 0655 Diphenoxylate HCl/Atropine (Diphenoxylate-Atrop 2.5-0.025) 1 Each Tablet, (Reported) Entered as Reported by: LYN OLVERA on 07/04/19 0949 Fluticasone Propionate (Flovent Hfa 220 mcg) 1 Ea Aero, (Reported) Entered as Reported by: LYN OLVERA on 07/04/19 0949 Fluticasone Propionate (Fluticasone Propionate) 16 Gm [place].susp, (Reported) Entered as Reported by: LYN OLVERA on 07/04/19 09 Ibuprofen (Ibuprofen) 600 Mg Tablet, 600 MG PO Q6H PRN for PAIN-MILD Prescribed by: TUCKER CLAROS on 11/05/19 1302 Latanoprost (Latanoprost) 2.5 Ml Drops, (Reported) Entered as Reported by: LYN OLVERA on 07/04/19948 Levofloxacin (Levaquin) 500 Mg Tablet, 500 MG PO DAILY Prescribed by: RYLAN TERRAZAS on 06/12/20 1714 Lisinopril (Lisinopril) 20 Mg Tablet, (Reported) Entered as Reported by: LYN OLVERA on 07/04/19948 Meclizine HCl (Meclizine HCl) 25 Mg Tab.chew, 25 MG PO Q6H PRN for DIZZINESS Prescribed by: SUSIE DAWSON on 07/04/19 1134 Meclizine HCl (Meclizine HCl) 12.5 Mg Tablet, 12.5 MG PO BID Prescribed by: ANDREY EMERY on 02/03/20 1847 Meclizine HCl (Meclizine HCl) 25 Mg Tablet, 25 MG PO TID PRN for DIZZINESS Prescribed by: ANA MARÍA WINKLER on 10/29/22 1125 Montelukast Sodium (Montelukast Sodium) 10 Mg Tablet, (Reported) Entered as Reported by: LYN OLVERA on 07/04/19948 Nitrofurantoin Monohyd/M-Cryst (Macrobid 100 mg Capsule) 100 Mg Capsule, 1 TAB PO BID Prescribed by: SUSIE DAWSON on 07/04/19 1143 Prednisone (Prednisone) 20 Mg Tab, 40 MG PO DAILY Prescribed by: RYLAN TERRAZAS on 06/12/20 172 Salmeterol Xinafoate (Serevent Diskus) 50 Mcg Disk, (Reported) Entered as Reported by: LYN OLVERA on 07/04/19948 Theophylline Anhydrous (Theophylline Anhydrous) 300 Mg Tab.er.12h, (Reported) Entered as Reported by: LYN OLVERA on 07/04/19948 Review of Systems Review of Systems Constitutional: see HPI, dizziness EENTM: see HPI Respiratory: no symptoms reported Cardiovascular: no symptoms reported Gastrointestinal: see HPI Genitourinary: dysuria Musculoskeletal: no symptoms reported Skin: No rash Psychiatric/Neurological: Headache (pressure behind eyes) Past Sdihkfh-Ojmzcz-Tsqzwe Hx Patient Social History Tobacco Use?: No Use of E-Cig and/or Vaping dev: No Substance use?: No Alcohol Use?: No Pt feels they are or have been: No Immunizations Up To Date First/Initial COVID19 Vaccinat: "yes" per pt Second COVID19 Vaccination Hector: "yes" per pt Third COVID19 Vaccination Date: "yes" per pt Seasonal Allergies Seasonal Allergies: No Past Medical History Surgery/Hospitalization HX: Heart valve replacement; Hyponatremia; HTN; Vertigo; GERD; Glaucoma Surgeries: Yes Section, Gallbladder Respiratory: Yes Asthma Cardiac: Yes Heart Murmur Neurological: No Genitourinary: No Gastrointestinal: No Musculoskeletal: No Endocrine: No HEENT: No Cancer: No Psychosocial: No Integumentary: No Blood Disorders: No Physical Exam Vital Signs Vital Signs - First Documented 10/29/22 10:15 Temp 36.4 Pulse 87 Resp 18 B/P (MAP) 128/51 (76) Pulse Ox 98 O2 Delivery Room Air Capillary Refill : Height, Weight, BMI Height: 4'11.00" Weight: 163lbs. oz. 73.788561gd; 31.00 BMI Method:Stated General Appearance: No Apparent Distress, WD/WN HEENT: PERRL/EOMI, TMs Normal, Normal ENT Inspection, Pharynx Normal, Moist Mucous Membranes; No Pharyngeal Erythema, No Photophobia Neck: Full Range of Motion, Normal Inspection, Non Tender, Supple Respiratory: Chest Non Tender, Lungs Clear, Normal Breath Sounds, No Accessory Muscle Use, No Respiratory Distress Cardiovascular: Regular Rate, Rhythm, Normal Peripheral Pulses Gastrointestinal: Normal Bowel Sounds, No Pulsatile Mass, Non Tender, Soft Rectal: Deferred Extremity: Normal Capillary Refill, Normal Inspection, No Pedal Edema Neurologic/Psychiatric: Alert, Oriented x3, grain buyer II-XII Norm as Tested Skin: Normal Color, Warm/Dry; No Rash Procedures/Interventions Suture Size: 4-0 Progress/Results/Core Measures Suspected Sepsis SIRS Temperature: Pulse: Respiratory Rate: Laboratory Tests 10/29/22 10:22: White Blood Count 4.9 Blood Pressure / Mean: Laboratory Tests 10/29/22 10:22: Creatinine 1.31H, Platelet Count 286, Total Bilirubin 0.3 Results/Orders Lab Results Laboratory Tests Test 10/29/22 10:22 10/29/22 10:30 Range/Units White Blood Count 4.9 4.3-11.0 10^3/uL Red Blood Count 4.17 3.80-5.11 10^6/uL Hemoglobin 11.7 11.5-16.0 g/dL Hematocrit 36 35-52 % Mean Corpuscular Volume 86 80-99 fL Mean Corpuscular Hemoglobin 28 25-34 pg Mean Corpuscular Hemoglobin Concent 33 32-36 g/dL Red Cell Distribution Width 13.3 10.0-14.5 % Platelet Count 286 130-400 10^3/uL Mean Platelet Volume 9.1 9.0-12.2 fL Immature Granulocyte % (Auto) 0 % Neutrophils (%) (Auto) 52 42-75 % Lymphocytes (%) (Auto) 33 12-44 % Monocytes (%) (Auto) 7 0-12 % Eosinophils (%) (Auto) 7 0-10 % Basophils (%) (Auto) 0 0-10 % Neutrophils # (Auto) 2.5 1.8-7.8 10^3/uL Lymphocytes # (Auto) 1.6 1.0-4.0 10^3/uL Monocytes # (Auto) 0.4 0.0-1.0 10^3/uL Eosinophils # (Auto) 0.3 0.0-0.3 10^3/uL Basophils # (Auto) 0.0 0.0-0.1 10^3/uL Immature Granulocyte # (Auto) 0.0 0.0-0.1 10^3/uL Sodium Level 133 L 135-145 MMOL/L Potassium Level 4.7 3.6-5.0 MMOL/L Chloride Level 98 98-107 MMOL/L Carbon Dioxide Level 26 21-32 MMOL/L Anion Gap 9 5-14 MMOL/L Blood Urea Nitrogen 18 7-18 MG/DL Creatinine 1.31 H 0.60-1.30 MG/DL Estimat Glomerular Filtration Rate 40 BUN/Creatinine Ratio 14 Glucose Level 112 H 70-105 MG/DL Calcium Level 9.4 8.5-10.1 MG/DL Corrected Calcium 9.2 8.5-10.1 MG/DL Total Bilirubin 0.3 0.1-1.0 MG/DL Aspartate Amino Transf (AST/SGOT) 15 5-34 U/L Alanine Aminotransferase (ALT/SGPT) 10 0-55 U/L Alkaline Phosphatase 146 H 40-136 U/L Total Protein 6.8 6.4-8.2 GM/DL Albumin 4.2 3.2-4.5 GM/DL Urine Color YELLOW Urine Clarity CLOUDY Urine pH 6.0 5-9 Urine Specific [place] <=1.005 1.016-1.022 Urine Protein NEGATIVE NEGATIVE Urine Glucose (UA) NEGATIVE NEGATIVE Urine Ketones NEGATIVE NEGATIVE Urine Nitrite NEGATIVE NEGATIVE Urine Bilirubin NEGATIVE NEGATIVE Urine Urobilinogen 0.2 < = 1.0 MG/DL Urine Leukocyte Esterase 3+ H NEGATIVE Urine RBC (Auto) TRACE-I H NEGATIVE Urine RBC NONE /HPF Urine WBC >100 H /HPF Urine Squamous Epithelial Cells >50 H /HPF Urine Crystals NONE /LPF Urine Bacteria LARGE H /HPF Urine Casts NONE /LPF Urine Mucus NEGATIVE /LPF Urine Culture Indicated NO My Orders Orders - ANA MARÍA WINKLER MD Comprehensive Metabolic Panel (10/29/22 10:15) Ua Culture If Indicated (10/29/22 10:15) Ed Iv/Invasive Line Start (10/29/22 10:15) Cbc With Automated Diff (10/29/22 10:15) Ct Head Wo (10/29/22 10:24) Ns Iv 500 Ml (Sodium Chloride 0.9%) (10/29/22 10:24) Ondansetron Injection (Zofran Injectio (10/29/22 10:24) Meclizine Tablet (Antivert Tablet) (10/29/22 10:24) Ciprofloxacin Tablet (Cipro Tablet) (10/29/22 11:04) Vital Signs/I&O 10/29/22 10/29/22 10:15 11:29 Temp 36.4 36.4 Pulse 87 85 Resp 18 18 B/P (MAP) 128/51 (76) 114/41 Pulse Ox 98 100 O2 Delivery Room Air Room Air Capillary Refill : Progress Note #1: Progress Note check labs and urine as well as CT scan of head to evaluate for sinus infection, stroke, bleeding, mass. Given NS 500 mL IVF bolus for hydration. Zofran 4 mg IV for nausea and Meclizine 25 mg po x 1 to help with dizziness. Differential diagnosis includes UTI, electrolyte imbalance, dehydration, sinusitis, stroke, bleeding, brain mass Progress Note #2: Progress Note UA shows 3+ LE with large amount of bacteria and >100 WBC. She also had >50 epithelial cells so might be contaminant but it could be causing some of the dizziness as well. CBC stable without elevated WBC count. She has chronic mild anemia but improved from most recent testing. Chemistry shows sodium at 133 so much better than the 114 from September. It is low normal now. Mild elevation of Cr to 1.3 that could indicate some dehydration. Will start antibiotic for urine and await CT scan report. Progress Note #3: Progress Note CT head appears stable from prior imaging and shows chronic atrophy without acute process. Discharge on Cipro and Meclizine. Encourage follow up with pcp if not improving or having more problems Diagnostic Imaging Diagonstic Imaging: CT Plain Films/CT/US/NM/MRI: head Comments NAME: MARITZA JOHNSON [facility] REC#: [id number] PT STATUS: REG ER : 1940 PHYSICIAN: ANA MARÍA WINKLER MD ADMIT DATE: 10/29/22/ER FS Draft Date of Exam:10/29/22 CT HEAD WO PROCEDURE: CT head without contrast. TECHNIQUE: Multiple contiguous axial images were obtained through the brain without the use of intravenous contrast. Auto Exposure Controls were utilized during the CT exam to meet ALARA standards for radiation dose reduction. INDICATION: Dizziness. Pressure behind eyes. COMPARISON: 10/03/2022. FINDINGS: There are no CT findings of acute intracranial hemorrhage. There is no intracranial mass effect or shift. There is no hydrocephalus. There is no abnormal extra-axial fluid collection. Dove-white matter differentiation are well-maintained. There is mild age-related volume loss. There is minimal evidence of microvascular disease in the white matter. There is no territorial loss of dove-white differentiation or vasogenic edema. The posterior fossa is unremarkable. There is minimal mucosal thickening in the paranasal sinuses without air-fluid level. The orbital contents unremarkable. There is no intraorbital mass. The middle ears and mastoids are clear. There is no calvarial abnormality. IMPRESSION: 1. Stable CT of the head with age-related volume loss and minimal microvascular changes within the white matter. There are no CT findings of an acute intracranial abnormality. 2. Unremarkable CT appearance of the orbits. Dictated on workstation # [id number] Dict: 10/29/22 1047 Trans: 10/29/22 1126 [facility] [id number] Interpreted by: MILA ZHANG MD Electronically signed by: Reviewed: Reviewed by Me Departure Impression Primary Impression: Dizziness Additional Impression: Acute cystitis without hematuria Disposition: HOME, SELF-CARE Condition: Stable Departure-Patient Inst. Decision time for Depature: 11:28 Referrals: DANIEL CHILDRESS APRN (PCP) Primary Care Physician MATT SHAFFER MD (Family) Primary Care Physician Patient Instructions: Urinary Tract Infection, Adult ED, Dizziness, Adult ED Add. Discharge Instructions: Take the antibiotic for urine infection. You could try taking Meclizine to help with dizziness. Check back with clinic if not improving or having more concerns. All discharge instructions reviewed with patient and/or family. Voiced understanding. Scripts Meclizine HCl (Meclizine HCl) 25 Mg Tablet 25 MG PO TID PRN for DIZZINESS for 10 Days, #30 TAB 0 Refills Prov: ANA MARÍA WINKLER MD 10/29/22 Ciprofloxacin HCl (Ciprofloxacin HCl) 250 Mg Tablet 250 MG PO BID for UTI for 5 Days, #10 TAB 0 Refills Prov: ANA MARÍA WINKLER MD 10/29/22 ANA MARÍA WINKLER MD Oct 29, 2022 10:36
[2022-10-29 10:38] LABS: BACTERIA,URINE LARGE /HPF; CLARITY,URINE CLOUDY; SQUAMOUS EPITHELIAL CELL,UR >50 /HPF; WBC,URINE >100 /HPF
[2022-10-29 10:49] LABS: ALBUMIN 4.2 GM/DL (3.2-4.5); BILIRUBIN,TOTAL 0.3 MG/DL (0.1-1.0); CALCIUM 9.4 MG/DL (8.5-10.1); CREATININE SERUM 1.31 MG/DL (0.60-1.30); POTASSIUM 4.7 MMOL/L (3.6-5.0); TOTAL PROTEIN 6.8 GM/DL (6.4-8.2)
[2022-10-29] MEDS ORDERED: CIPROFLOXACIN 500 MG (CIPRO) TABLET PO STA (11:04)
[2022-10-29] MEDS ORDERED: CIPR250T3 PO (11:25)
[2022-10-29] MEDS ORDERED: MECL-149 PO (11:25)
--- NOTE | 2022-10-29 11:26 | Diagnostic Imaging Report ---
PROCEDURE: CT head without contrast. TECHNIQUE: Multiple contiguous axial images were obtained through the brain without the use of intravenous contrast. Auto Exposure Controls were utilized during the CT exam to meet ALARA standards for radiation dose reduction. INDICATION: Dizziness. Pressure behind eyes. COMPARISON: 10/03/2022. FINDINGS: There are no CT findings of acute intracranial hemorrhage. There is no intracranial mass effect or shift. There is no hydrocephalus. There is no abnormal extra-axial fluid collection. Dove-white matter differentiation are well-maintained. There is mild age-related volume loss. There is minimal evidence of microvascular disease in the white matter. There is no territorial loss of dove-white differentiation or vasogenic edema. The posterior fossa is unremarkable. There is minimal mucosal thickening in the paranasal sinuses without air-fluid level. The orbital contents unremarkable. There is no intraorbital mass. The middle ears and mastoids are clear. There is no calvarial abnormality. IMPRESSION: 1. Stable CT of the head with age-related volume loss and minimal microvascular changes within the white matter. There are no CT findings of an acute intracranial abnormality. 2. Unremarkable CT appearance of the orbits. Dictated by: Dictated on workstation # [id number]
[2022-10-29 11:29] VITALS: BP 114/41
== END 2022-10-29 11:29 | disposition home or self-care (01) ==
LOC: EDUNIT# 10:10 → ER FS 10:11
DX: N39.0 Urinary tract infection, site not specified (principal); R42 Dizziness and giddiness; D64.9 Anemia, unspecified; E86.0 Dehydration; Z88.1 Allergy status to other antibiotic agents
CPT/HCPCS: 36415; 70450; 80053; 81000; 85025

== ENCOUNTER 2022-12-05 18:48 | Emergency (ER) | payer MEDICARE ==
[~2022-12-05 18:48] MED LIST changes: +CIPR250T3 PO; +MECL-149 PO
--- NOTE | 2022-12-05 18:54 | ED General ---
General Stated Complaint: DIZZY History of Present Illness Date Seen by Provider: Dec 05, 2022 Time Seen by Provider: 18:54 Initial Comments 82-year-old female presents with some dizziness and little bit of an upset stomach. She reports that she was at a restaurant with a garden club eating when the symptoms happened. The dizziness is improved a little bit. She denies any fevers chills, any no focal deficits such as weakness or vision changes. Patient reports that she has had this occasionally when her sodium has been low. She reports that she has been feeling fine. No chest pain, cough, shortness of breath or other systemic complaints. Allergies and Home Medications Allergies Coded Allergies: Penicillins (Verified Allergy, Unknown, 07/04/19) Sulfa (Sulfonamide Antibiotics) (Verified Allergy, Unknown, 07/04/19) cholecalciferol (vitamin D3) (Verified Allergy, Unknown, 07/04/19) Patient Home Medication List Home Medication List Reviewed: Yes Ciprofloxacin HCl (Ciprofloxacin HCl) 250 Mg Tablet, 250 MG PO BID Prescribed by: ANA MARÍA WINKLER on 10/29/22 1125 Clindamycin HCl (Clindamycin HCl) 300 Mg Capsule, 300 MG PO QID Prescribed by: LEENA BRITO on 09/23/22 0655 Diphenoxylate HCl/Atropine (Diphenoxylate-Atrop 2.5-0.025) 1 Each Tablet, (Reported) Entered as Reported by: LYN OLVERA on 07/04/19 0949 Fluticasone Propionate (Flovent Hfa 220 mcg) 1 Ea Aero, (Reported) Entered as Reported by: LYN OLVERA on 07/04/19 0949 Fluticasone Propionate (Fluticasone Propionate) 16 Gm [place].susp, (Reported) Entered as Reported by: LYN OLVERA on 07/04/19 0949 Ibuprofen (Ibuprofen) 600 Mg Tablet, 600 MG PO Q6H PRN for PAIN-MILD Prescribed by: TUCKER CLAROS on 11/05/19 1302 Latanoprost (Latanoprost) 2.5 Ml Drops, (Reported) Entered as Reported by: LYN OLVERA on 07/04/19 0949 Levofloxacin (Levaquin) 500 Mg Tablet, 500 MG PO DAILY Prescribed by: RYLAN TERRAZAS on 06/12/20 1714 Lisinopril (Lisinopril) 20 Mg Tablet, (Reported) Entered as Reported by: LYN OLVERA on 07/04/19 0949 Meclizine HCl (Meclizine HCl) 25 Mg Tab.chew, 25 MG PO Q6H PRN for DIZZINESS Prescribed by: SUSIE DAWSON on 07/04/19 1134 Meclizine HCl (Meclizine HCl) 12.5 Mg Tablet, 12.5 MG PO BID Prescribed by: ANDREY EMERY on 02/03/20 1847 Meclizine HCl (Meclizine HCl) 25 Mg Tablet, 25 MG PO TID PRN for DIZZINESS Prescribed by: ANA MARÍA WINKLER on 10/29/22 1125 Montelukast Sodium (Montelukast Sodium) 10 Mg Tablet, (Reported) Entered as Reported by: LYN OLVERA on 07/04/19 09 Nitrofurantoin Monohyd/M-Cryst (Macrobid 100 mg Capsule) 100 Mg Capsule, 1 TAB PO BID Prescribed by: SUSIE DAWSON on 07/04/19 1143 Prednisone (Prednisone) 20 Mg Tab, 40 MG PO DAILY Prescribed by: RYLAN TERRAZAS on 06/12/20 1722 Salmeterol Xinafoate (Serevent Diskus) 50 Mcg Disk, (Reported) Entered as Reported by: LYN OLVERA on 07/04/19 09 Theophylline Anhydrous (Theophylline Anhydrous) 300 Mg Tab.er.12h, (Reported) Entered as Reported by: LYN OLVERA on 07/04/19 09 Review of Systems Review of Systems Constitutional: No chills; dizziness; No fever EENTM: no symptoms reported Respiratory: no symptoms reported Gastrointestinal: No diarrhea; nausea; No vomiting Genitourinary: no symptoms reported Musculoskeletal: no symptoms reported Skin: no symptoms reported Psychiatric/Neurological: No Symptoms Reported Past Rqxcein-Gtsszw-Ehekny Hx Immunizations Up To Date First/Initial COVID19 Vaccinat: "yes" per pt Second COVID19 Vaccination Hector: "yes" per pt Third COVID19 Vaccination Date: "yes" per pt Seasonal Allergies Seasonal Allergies: No Past Medical History Surgery/Hospitalization HX: Heart valve replacement; Hyponatremia; HTN; Vertigo; GERD; Glaucoma Surgeries: Yes Section, Gallbladder Respiratory: Yes Asthma Cardiac: Yes Heart Murmur Neurological: No Genitourinary: No Gastrointestinal: No Musculoskeletal: No Endocrine: No HEENT: No Cancer: No Psychosocial: No Integumentary: No Blood Disorders: No Physical Exam Vital Signs Vital Signs - First Documented 12/05/22 18:52 Pulse 93 Resp 18 B/P (MAP) 183/62 (102) Pulse Ox 99 O2 Delivery Room Air Capillary Refill : Height, Weight, BMI Height: 4'11.00" Weight: 163lbs. oz. 73.264365gm; 31.00 BMI Method:Stated General Appearance: No Apparent Distress, WD/WN Eyes: Bilateral Eye Normal Inspection, Bilateral Eye PERRL HEENT: PERRL/EOMI, Moist Mucous Membranes Neck: Non Tender, Supple Respiratory: Lungs Clear, Normal Breath Sounds Cardiovascular: Regular Rate, Rhythm, No Edema Gastrointestinal: Non Tender, Soft Extremity: Normal Capillary Refill, Normal Inspection, Normal Range of Motion Neurologic/Psychiatric: Alert, Oriented x3, No Motor/Sensory Deficits Skin: Normal Color, Warm/Dry Procedures/Interventions Suture Size: 4-0 Progress/Results/Core Measures Suspected Sepsis SIRS Temperature: Pulse: Respiratory Rate: Laboratory Tests 12/05/22 19:05: White Blood Count 6.7 Blood Pressure / Mean: Laboratory Tests 12/05/22 19:05: Creatinine 1.22, Platelet Count 232, Total Bilirubin 0.2 Results/Orders Lab Results Laboratory Tests Test 12/05/22 18:55 12/05/22 19:05 Range/Units Urine Color YELLOW Urine Clarity SL CLOUDY Urine pH 5.5 5-9 Urine Specific [place] 1.010 L 1.016-1.022 Urine Protein NEGATIVE NEGATIVE Urine Glucose (UA) NEGATIVE NEGATIVE Urine Ketones NEGATIVE NEGATIVE Urine Nitrite NEGATIVE NEGATIVE Urine Bilirubin NEGATIVE NEGATIVE Urine Urobilinogen 0.2 < = 1.0 MG/DL Urine Leukocyte Esterase 3+ H NEGATIVE Urine RBC (Auto) TRACE-I H NEGATIVE Urine RBC NONE /HPF Urine WBC 25-50 H /HPF Urine Squamous Epithelial Cells 2-5 /HPF Urine Crystals NONE /LPF Urine Bacteria FEW H /HPF Urine Casts NONE /LPF Urine Mucus NEGATIVE /LPF Urine Culture Indicated YES White Blood Count 6.7 4.3-11.0 10^3/uL Red Blood Count 4.19 3.80-5.11 10^6/uL Hemoglobin 11.9 11.5-16.0 g/dL Hematocrit 36 35-52 % Mean Corpuscular Volume 87 80-99 fL Mean Corpuscular Hemoglobin 28 25-34 pg Mean Corpuscular Hemoglobin Concent 33 32-36 g/dL Red Cell Distribution Width 14.3 10.0-14.5 % Platelet Count 232 130-400 10^3/uL Mean Platelet Volume 9.3 9.0-12.2 fL Immature Granulocyte % (Auto) 0 % Neutrophils (%) (Auto) 57 42-75 % Lymphocytes (%) (Auto) 31 12-44 % Monocytes (%) (Auto) 6 0-12 % Eosinophils (%) (Auto) 5 0-10 % Basophils (%) (Auto) 1 0-10 % Neutrophils # (Auto) 3.8 1.8-7.8 10^3/uL Lymphocytes # (Auto) 2.1 1.0-4.0 10^3/uL Monocytes # (Auto) 0.4 0.0-1.0 10^3/uL Eosinophils # (Auto) 0.3 0.0-0.3 10^3/uL Basophils # (Auto) 0.0 0.0-0.1 10^3/uL Immature Granulocyte # (Auto) 0.0 0.0-0.1 10^3/uL Sodium Level 139 135-145 MMOL/L Potassium Level 4.7 3.6-5.0 MMOL/L Chloride Level 102 98-107 MMOL/L Carbon Dioxide Level 25 21-32 MMOL/L Anion Gap 12 5-14 MMOL/L Blood Urea Nitrogen 18 7-18 MG/DL Creatinine 1.22 0.60-1.30 MG/DL Estimat Glomerular Filtration Rate 44 BUN/Creatinine Ratio 15 Glucose Level 156 H 70-105 MG/DL Calcium Level 9.6 8.5-10.1 MG/DL Corrected Calcium 9.4 8.5-10.1 MG/DL Magnesium Level 2.0 1.6-2.4 MG/DL Total Bilirubin 0.2 0.1-1.0 MG/DL Aspartate Amino Transf (AST/SGOT) 15 5-34 U/L Alanine Aminotransferase (ALT/SGPT) 10 0-55 U/L Alkaline Phosphatase 170 H 40-136 U/L Troponin I < 0.30 <0.30 NG/ML C-Reactive Protein 0.38 <0.50 MG/DL Total Protein 6.8 6.4-8.2 GM/DL Albumin 4.2 3.2-4.5 GM/DL Lipase 68 8-78 U/L My Orders Orders - SHE DEL ANGEL DO Cbc With Automated Diff (12/05/22 18:58) Comprehensive Metabolic Panel (12/05/22 18:58) Magnesium (12/05/22 18:58) Ua Culture If Indicated (12/05/22 18:58) Crp Fs (12/05/22 18:58) Troponin I Fs (12/05/22 18:58) Ekg Tracing (12/05/22 18:58) Monitor-Rhythm Ecg Trace Only (12/05/22 18:58) Lipase (12/05/22 18:58) Meclizine Tablet (Antivert Tablet) (12/05/22 19:00) Ed Iv/Invasive Line Start (12/05/22 19:06) Urine Culture (12/05/22 18:55) Cephalexin Capsule (Keflex Capsule) (12/05/22 20:00) Medications Given in ED Current Medications Medications Dose Ordered Sig/Camilo Route Start Time Stop Time Status Last Admin Dose Admin Meclizine HCl 25 mg ONCE ONCE PO 12/05/22 19:00 12/05/22 19:01 DC 12/05/22 19:06 25 MG Vital Signs/I&O 12/05/22 18:52 Pulse 93 Resp 18 B/P (MAP) 183/62 (102) Pulse Ox 99 O2 Delivery Room Air Capillary Refill : Progress Note : Progress Note Patient's labs were reviewed. Patient has normal sodium, white count and labs. Patient's EKG was reviewed and is normal. Patient does have a urine that is concerning for urinary tract infection. With her nausea and dizziness I will treat her with Keflex. She should follow with her primary care provider if symptoms continue or next week or return to the ER if they get significantly worse. Patient was stable and discharged ECG Initial ECG Impression Date: Dec 05, 2022 Initial ECG Impression Time: 19:01 Initial ECG Rate: 80 Initial ECG Rhythm: Normal Sinus Initial ECG Intervals: Normal Initial ECG Impression: Normal Departure Impression Primary Impression: Acute cystitis without hematuria Additional Impression: Dizziness Disposition: HOME, SELF-CARE Condition: Stable Departure-Patient Inst. Referrals: MATT SHAFFER MD (PCP/Family) Primary Care Physician Patient Instructions: Urinary Tract Infection, Adult (DC) Add. Discharge Instructions: Please follow-up with your primary care provider in a about 5 to 7 days to recheck your symptoms return to the ER as needed Scripts Cephalexin (Cephalexin) 500 Mg Tablet 500 MG PO QID, #20 TAB 0 Refills Prov: SHE DEL ANGEL DO 12/05/22 SHE DEL ANGEL DO Dec 05, 2022 18:54
[2022-12-05] MEDS ORDERED: MECLIZINE 25 MG (ANTIVERT) TAB PO ONE (19:00)
[2022-12-05 19:09] LABS: BASOPHILS % (AUTO) 1 % (0-10); EOSINOPHILS # (AUTO) 0.3 10^3/uL (0.0-0.3); EOSINOPHILS % (AUTO) 5 % (0-10); HEMATOCRIT 36 % (35-52); HEMOGLOBIN 11.9 g/dL (11.5-16.0); LYMPHOCYTES # (AUTO) 2.1 10^3/uL (1.0-4.0); LYMPHOCYTES % (AUTO) 31 % (12-44); MEAN CORPUSCULAR HEMOGLOBIN 28 pg (25-34); MEAN CORPUSCULAR HGB CONC 33 g/dL (32-36); MEAN CORPUSCULAR VOLUME 87 fL (80-99); MEAN PLATELET VOLUME 9.3 fL (9.0-12.2); MONOCYTES # (AUTO) 0.4 10^3/uL (0.0-1.0); MONOCYTES % (AUTO) 6 % (0-12); NEUTROPHILS # (AUTO) 3.8 10^3/uL (1.8-7.8); NEUTROPHILS % (AUTO) 57 % (42-75); PLATELET COUNT 232 10^3/uL (130-400); WHITE BLOOD COUNT 6.7 10^3/uL (4.3-11.0)
[2022-12-05 19:10] LABS: BILIRUBIN,URINE NEGATIVE (NEGATIVE); CLARITY,URINE SL CLOUDY; COLOR,URINE YELLOW; GLUCOSE, URINE (UA) NEGATIVE (NEGATIVE); KETONES,URINE NEGATIVE (NEGATIVE); LEUKOCYTE ESTERASE ,URINE 3+ (NEGATIVE); NITRITE,URINE NEGATIVE (NEGATIVE); PH,URINE 5.5 (5-9); PROTEIN,URINE NEGATIVE (NEGATIVE)
[2022-12-05 19:18] LABS: BACTERIA,URINE FEW /HPF; WBC,URINE 25-50 /HPF
[2022-12-05 19:34] LABS: CARBON DIOXIDE 25 MMOL/L (21-32); CHLORIDE 102 MMOL/L (98-107); POTASSIUM 4.7 MMOL/L (3.6-5.0); SODIUM 139 MMOL/L (135-145)
[2022-12-05 19:35] LABS: ALANINE AMINOTRANSFERASE 10 U/L (0-55); ALBUMIN 4.2 GM/DL (3.2-4.5); ALKALINE PHOSPHATASE 170 U/L (40-136); BILIRUBIN,TOTAL 0.2 MG/DL (0.1-1.0); BUN/CREATININE RATIO 15; CALCIUM 9.6 MG/DL (8.5-10.1); CREATININE SERUM 1.22 MG/DL (0.60-1.30); GFR ESTIMATED 44; GLUCOSE 156 MG/DL (70-105); LIPASE 68 U/L (8-78); TOTAL PROTEIN 6.8 GM/DL (6.4-8.2)
[2022-12-05] MEDS ORDERED: CEPH500T PO (19:51)
[2022-12-05 19:55] VITALS: BP 137/47
[2022-12-05] MEDS ORDERED: CEPHALEXIN 250 MG (KEFLEX) CAP PO ONE (20:00)
== END 2022-12-05 20:05 | disposition home or self-care (01) ==
LOC: EDUNIT# 18:48 → ER FS 18:50
DX: N30.00 Acute cystitis without hematuria (principal); R42 Dizziness and giddiness; Z88.0 Allergy status to penicillin; Z28.310 Unvaccinated for COVID-19
CPT/HCPCS: 36415; 80053; 81000; 83690; 83735; 84484; 85025; 86141; 87088; 93005

== ENCOUNTER 2023-04-17 11:00 | Emergency (ER) | payer MEDICARE ==
[~2023-04-17 11:00] MED LIST changes: +CEPH500T PO
[2023-04-17] MEDS ORDERED: MECL-215 PO (11:38)
--- NOTE | 2023-04-17 11:38 | ED Neurological Problem ---
General Chief Complaint: Dizziness/Syncope Stated Complaint: DIZZINESS; HEADACHE; LATISHA FINGER TINGLING Nursing Triage Note: PT REPORTS SHE WAS STANDING IN LINE AT [employer] FOR HER DRINK AND "THE FLOOR STARTED MOVING". SON REPORTS WE HAVE BEEN HERE MUTIPLE TIMES FOR VERTIGO. Source: patient, family, old records Exam Limitations: no limitations History of Present Illness Date Seen by Provider: April 17, 2023 Time Seen by Provider: 11:02 Initial Comments 82-year-old female with past medical history most notable for vertigo coming in due to vertigo-like sensation. This occurred about an hour prior to arrival. She was sitting in the store, standing, room started spinning, and she had to sit down for a minute. Symptoms improved after. She states she did have a little bit of ringing in her right ear during that time, and does have sometimes decreased hearing in the right side. Does believe she has a viral issue going on as she has had a little bit more congestion than usual. Denies any chest pain, shortness of breath, abdominal pain, nausea, vomiting, diarrhea, fever, chills, focal weakness or numbness, or any other concerns. She is completely back to normal now and has been since a few seconds after the incident. This has occurred numerous times over the years. Unfortunately, she has never followed up with an ENT specialist. She is unsure if she has any meclizine left at home. Allergies and Home Medications Allergies Coded Allergies: Penicillins (Verified Allergy, Unknown, 07/04/19) Sulfa (Sulfonamide Antibiotics) (Verified Allergy, Unknown, 07/04/19) cholecalciferol (vitamin D3) (Verified Allergy, Unknown, 07/04/19) Patient Home Medication List Home Medication List Reviewed: Yes Cephalexin (Cephalexin) 500 Mg Tablet, 500 MG PO QID Prescribed by: SHE DEL ANGEL on 12/05/221950 Ciprofloxacin HCl (Ciprofloxacin HCl) 250 Mg Tablet, 250 MG PO BID Prescribed by: ANA MARÍA WINKLER on 10/29/22 1125 Clindamycin HCl (Clindamycin HCl) 300 Mg Capsule, 300 MG PO QID Prescribed by: LEENA BRITO on 09/23/22 0655 Diphenoxylate HCl/Atropine (Diphenoxylate-Atrop 2.5-0.025) 1 Each Tablet, (Reported) Entered as Reported by: LYN OLVERA on 07/04/19948 Fluticasone Propionate (Flovent Hfa 220 mcg) 1 Ea Aero, (Reported) Entered as Reported by: LYN OLVERA on 07/04/19948 Fluticasone Propionate (Fluticasone Propionate) 16 Gm Cameron.susp, (Reported) Entered as Reported by: LYN OLVERA on 07/04/19948 Ibuprofen (Ibuprofen) 600 Mg Tablet, 600 MG PO Q6H PRN for PAIN-MILD Prescribed by: TUCKER CLAROS on 11/05/19 1302 Latanoprost (Latanoprost) 2.5 Ml Drops, (Reported) Entered as Reported by: LYN OLVERA on 07/04/19948 Levofloxacin (Levaquin) 500 Mg Tablet, 500 MG PO DAILY Prescribed by: RYLAN TERRAZAS on 06/12/20 1714 Lisinopril (Lisinopril) 20 Mg Tablet, (Reported) Entered as Reported by: LYN OLVERA on 07/04/19948 Meclizine HCl (Meclizine HCl) 25 Mg Tab.chew, 25 MG PO Q6H PRN for DIZZINESS Prescribed by: SUSIE DAWSON on 07/04/19 1134 Meclizine HCl (Meclizine HCl) 12.5 Mg Tablet, 12.5 MG PO BID Prescribed by: ANDREY EMERY on 02/03/20 1847 Meclizine HCl (Meclizine HCl) 25 Mg Tablet, 25 MG PO TID PRN for DIZZINESS Prescribed by: ANA MARÍA WINKLER on 10/29/22 1125 Montelukast Sodium (Montelukast Sodium) 10 Mg Tablet, (Reported) Entered as Reported by: LYN OLVERA on 07/04/19948 Nitrofurantoin Monohyd/M-Cryst (Macrobid 100 mg Capsule) 100 Mg Capsule, 1 TAB PO BID Prescribed by: SUSIE DAWSON on 07/04/19 1143 Prednisone (Prednisone) 20 Mg Tab, 40 MG PO DAILY Prescribed by: RYLAN TERRAZAS on 06/12/20 1722 Salmeterol Xinafoate (Serevent Diskus) 50 Mcg Disk, (Reported) Entered as Reported by: LYN OLVERA on 07/04/19948 Theophylline Anhydrous (Theophylline Anhydrous) 300 Mg Tab.er.12h, (Reported) Entered as Reported by: LYN WADE on 07/04/19948 Review of Systems Review of Systems Constitutional: No fever Eyes: No Symptoms Reported Ears, Nose, Mouth, Throat: no symptoms reported Respiratory: no symptoms reported Cardiovascular: no symptoms reported Gastrointestinal: no symptoms reported Musculoskeletal: no symptoms reported Skin: no symptoms reported Psychiatric/Neurological: See HPI Past [id number] Hx Patient Social History Tobacco Use?: No Use of E-Cig and/or Vaping dev: No Substance use?: No Alcohol Use?: No Pt feels they are or have been: No Immunizations Up To Date First/Initial COVID19 Vaccinat: "yes" per pt Second COVID19 Vaccination Hector: "yes" per pt Third COVID19 Vaccination Date: "yes" per pt Seasonal Allergies Seasonal Allergies: No Past Medical History Surgery/Hospitalization HX: Heart valve replacement; Hyponatremia; HTN; Vertigo; GERD; Glaucoma Surgeries: Yes Section, Gallbladder Respiratory: Yes Asthma Cardiac: Yes Heart Murmur Neurological: No Genitourinary: No Gastrointestinal: No Musculoskeletal: No Endocrine: No HEENT: No Cancer: No Psychosocial: No Integumentary: No Blood Disorders: No Physical Exam Vital Signs Vital Signs - First Documented 04/17/23 11:05 Temp 37.0 Pulse 86 Resp 16 B/P (MAP) 147/51 (83) Pulse Ox 99 O2 Delivery Room Air Capillary Refill : Less Than 3 Seconds Height, Weight, BMI Height: 4'11.00" Weight: 163lbs. oz. [id number]; 31.00 BMI Method:Stated General Appearance: WD/WN, no apparent distress HEENT: PERRL/EOMI, normal ENT inspection, pharynx normal Neck: non-tender, full range of motion, supple, normal inspection Respiratory: chest non-tender, lungs clear, normal breath sounds, no respiratory distress, no accessory muscle use Cardiovascular: regular rate, rhythm, no edema Gastrointestinal: normal bowel sounds, non tender, soft; No distended, No guarding, No rebound Back: normal inspection Extremities: normal range of motion, non-tender, normal inspection, no pedal edema, no calf tenderness, normal capillary refill Neurologic/Psychiatric: society reporter II-XII nml as tested, no motor/sensory deficits, a lert, normal mood/affect, oriented x 3, other (Normal speech, normal gait, normal [id number], normal visual saba and visual acuity) Crainal Nerves: normal hearing, normal speech, PERRL Coordination/Gait: normal finger to nose, normal gait Motor/Sensory: no motor deficit, no sensory deficit, no pronator drift Skin: normal color, warm/dry Stroke Onset of Symptoms Date of Onset of Symptoms: April 17, 2023 Time of Symptom Onset: 10:30 Onset of Symptoms: Yes NIH Stroke Scale Assessment Select: Initial Level of Consciousness: 0=Alert (0), Level of Consciousness- Questions: 0=Answers both month/age (0), LOC Commands: 0=Performs both tasks (0), Gaze: Normal (0), Visual Saba: 0=No visual loss (0), Facial Movement (Facial Paresis): 0=Normal symmetrical mnt (0), Motor Function-Arms Right: 0=No drift (0), Motor Function-Arms Left: 0=No drift (0), Motor Function-Legs Right: 0=No drift (0), Motor Function-Legs Left: 0=No drift (0), Limb Ataxia: 0=Absent (0), Sensory: 0=Normal:no loss (0), Best Language: 0=No aphasia (0), Dysarthria: 0=Normal (0), Extinction & Inattention: 0=No abnormality (0), Total: 0 Stroke Thrombolytic Exclusion Age 18 or Over: Yes Improving Symptoms: Yes TPA Contraindication: Yes (patient normal now) IV - TPa Received IV - TPa Procedure Performed?: No Procedures/Interventions Suture Size: 4-0 Progress/Results/Core Measures Results/Orders Lab Results Laboratory Tests Test 04/17/23 11:20 Range/Units Glucometer 118 H 70-110 MG/DL My Orders Orders - LEENA BIRTO MD Accucheck Stat ONCE (04/17/23 11:16) Ekg Tracing (04/17/23 11:16) Vital Signs/I&O 04/17/23 11:05 Temp 37.0 Pulse 86 Resp 16 B/P (MAP) 147/51 (83) Pulse Ox 99 O2 Delivery Room Air Blood Pressure Mean: 83 FSBG Bedside Testing Finger Stick Blood Glucose: 118 Blood Glucose Action Taken: NONE Progress Progress Note : Progress Note 82-year-old female with above history coming in due to dizziness. ABCs were intact and vitals were stable on presentation. NIH is 0 on arrival. I reviewed the patient's history, and she has been seen in the ER numerous times for similar issues of vertigo. Has been prescribed meclizine which has helped in the past. Has had numerous CT heads which have all been unremarkable. Symptoms today are consistent with prior episodes she states and she is back to her baseline right now. EKG ordered and interpreted by me showing no acute ischemic changes and is sinus rhythm. Glucose is normal here at 118. Not having any other infectious symptoms. Lab work otherwise not obtained. Repeat CT imaging not obtained given prior history and story is clinically the same as prior episodes. I will have her follow-up with ENT as an outpatient. I will send a prescription for meclizine. Initial ECG Impression Date: April 17, 2023 Initial ECG Impression Time: 11:26 Initial ECG Rate: 74 Initial ECG Rhythm: Normal Sinus Comment Narrow QRS, normal axis, no significant ST changes or T wave abnormalities Departure Impression Primary Impression: Vertigo Disposition: HOME, SELF-CARE Condition: Improved Departure-Patient Inst. Decision time for Depature: 11:45 Referrals: DANIEL CHILDRESS APRN (PCP) Primary Care Physician MATT SHAFFER MD (Family) Primary Care Physician OLEG AHN MD Patient Instructions: Dizziness, Adult ED Add. Discharge Instructions: This is most likely BPPV also known as benign paroxysmal positional vertigo or Mnire's disease. Please follow-up with Dr. Ahn, the research nutritionist to discuss the symptoms and if anything can be done to help lessen the occurrences of them. You can take the meclizine as needed for dizziness. Scripts Meclizine HCl (Meclizine HCl) 12.5 Mg Tablet 12.5 MG PO Q12H PRN for VERTIGO for 14 Days, #28 TAB Prov: LEENA BRITO MD 04/17/23 Work/School Note: Family Work Note Patient Received Medical Care In the Emergency Department On: April 17, 2023 Patient Will Be Able to Return to Work/School On: April 18, 2023 LEENA BRITO MD April 17, 2023 11:38
[2023-04-17 11:39] VITALS: BP 147/51
== END 2023-04-17 11:41 | disposition home or self-care (01) ==
LOC: EDUNIT# 11:00 → ER FS 11:02
DX: R42 Dizziness and giddiness (principal); Z79.899 Other long term (current) drug therapy
CPT/HCPCS: 82947